=== PATIENT | female | born 1995 | race Caucasian/White ===

== ENCOUNTER → 2019-04-05 | Outpatient (CLI) | payer OTHER, SELFPAY ==
[2019-04-05 13:22] VITALS: BMI 29.7
[2019-04-05 15:18] LABS: T4 Free Direct 0.86 ng/dL (0.76-1.46); Thyroid Stim Hormone (TSH) 3.44 uIU/mL (0.358-3.74)
== END | disposition home or self-care (01) ==
PROVIDERS: Family Provider Pediatrics; PCP Pediatrics; Referring Provider Obstetrics & Gynecology; Visit Provider Obstetrics & Gynecology
DX: E01.0 Iodine-deficiency related diffuse (endemic) goiter (principal)
CPT/HCPCS: 36415; 84439; 84443

== ENCOUNTER → 2019-04-11 | Outpatient (CLI) | payer OTHER, SELFPAY ==
[2019-04-05 13:22] VITALS: BMI 29.7
--- NOTE | 2019-04-11 08:02 | US_ITS ---
STUDY: THYROID ULTRASOUND REASON FOR EXAM: Female, 23 years old. Thyromegaly. TECHNIQUE: Ultrasound evaluation of the thyroid was performed with real-time and static hurley-scale imaging. COMPARISON: None. FINDINGS: RIGHT LOBE: The right lobe of the thyroid gland measures 5.6 x 2.2 x 2.0 cm. There is a heterogeneous echotexture. There are no demonstrated solid, cystic or complex lesions. Normal color flow on Doppler imaging. LEFT LOBE: The left lobe of the thyroid gland measures 5.0 x 2.1 x 1.7 cm. There is a heterogeneous echotexture. There are no demonstrated solid, cystic or complex lesions. Normal vascularity on Doppler imaging. ISTHMUS: The isthmus measures 0.5 cm. The regional lymph nodes are normal. US/Thyroid IMPRESSION: Enlarged heterogenous thyroid without distinct nodule. Electronically Signed: Freddy Soto DO at 16:55 EDT Tel [phone], Service support ,
== END | disposition home or self-care (01) ==
PROVIDERS: Family Provider Pediatrics; PCP Pediatrics; Referring Provider Obstetrics & Gynecology; Visit Provider Obstetrics & Gynecology
DX: E01.0 Iodine-deficiency related diffuse (endemic) goiter (principal)
CPT/HCPCS: 76536

== ENCOUNTER → 2020-06-25 | Outpatient (CLI) | payer OTHER, SELFPAY ==
[2020-06-25 15:40] VITALS: BMI 28.8
[2020-07-01 20:51] LABS: HPV Reflexed? NOT INDICATED
== END | disposition home or self-care (01) ==
LOC: LABSPEC 16:46
PROVIDERS: PCP Pediatrics; Referring Provider Obstetrics & Gynecology; Visit Provider Obstetrics & Gynecology
DX: Z12.4 Encounter for screening for malignant neoplasm of cervix (principal)
CPT/HCPCS: 88175; G0145

== ENCOUNTER → 2021-06-30 11:59 | Outpatient (CLI) | payer BC, SELFPAY ==
[2021-06-30 13:39] LABS: T4 Free Direct 1.03 ng/dL (0.76-1.46); Thyroid Stim Hormone (TSH) 2.28 uIU/mL (0.358-3.74)
[2021-07-04 16:45] LABS: HPV Reflexed? NOT INDICATED
== END ==
PROVIDERS: PCP Family Medicine; Referring Provider Obstetrics & Gynecology; Visit Provider Obstetrics & Gynecology
DX: E04.9 Nontoxic goiter, unspecified (principal); Z13.29 Encounter for screening for other suspected endocrine disorder; Z12.4 Encounter for screening for malignant neoplasm of cervix
CPT/HCPCS: 36415; 84439; 84443; 88175; G0145

== ENCOUNTER → 2023-12-15 | Outpatient (CLI) | payer OTHER, SELFPAY ==
[2023-12-15 17:42] LABS: hCG Titer Quant., Serum 22715 mIU/mL (1-3)
--- OUTSIDE RECORDS SUMMARY | 2023-12-15 20:44 | XMS RPT_ITS | CCD ---
Author Name Unknown Address [address] [place] [address] Organization [facility] Care Team Providers Care Head Of Precision Targeting Name Role Phone Corinna Goetz LPN Unavailable [phone] Corinna Goetz LPN Unavailable [phone] Steve Keita MD Primary Care Provider Steve Keita MD Primary Care Provider STEVE KEITA Primary Care Unavailable ROXANN CHAVIS Attending Unavailable STEVE KEITA Primary Care Unavailable STEVE KEITA Primary Care Unavailable Medications Current Medications Medication Drug Class(es) Dates Sig (Normalized) Sig (Original) amoxicillin 500 mg oral capsule (1 source) Penicillin-class Antibacterial Start: 07-04-2023 End: 07-14-2023 take 1 capsule by mouth twice daily amoxicillin (AMOXIL) 500 mg capsule Take 1 capsule by mouth twice daily for 10 days. 20 capsule 0 07/04/2023 07/14/2023 Active Completed/Discontinued Medications Medication Drug Class(es) Dates Sig (Normalized) Sig (Original) CONTROL (2 sources) Start: 05-27-2017 CONTROL CONTROL Corinna Goetz LPN Ethinyl Estradiol / norgestimate (2 sources) Progestin, Estrogen Start: 10-17-2018 End: 10-30-2022 take 1 tablet by mouth once daily SPRINTEC 0.25-35 mg-mcg per tablet Take 1 tablet by mouth once daily. 84 tablet 0 10/17/2018 10/30/2022 Discontinued (Discontinued by Patient) Problems Problem Classification Problem Date Documented Date Episodic/Chronic Other nutritional; endocrine; and metabolic disorders (3 sources) Obese class I; Translations: [Obesity, unspecified] Onset: 10-30-2022 Chronic Other screening for suspected conditions (not mental disorders or infectious disease) (1 source) Patient encounter status; Translations: [Encounter for screening for malignant neoplasm of cervix] Episodic Other upper respiratory infections (3 sources) Upper respiratory infection; Translations: [Acute upper respiratory infection, unspecified] Episodic Otitis media and related conditions (1 source) Finding of fluid behind tympanic membrane; Translations: [Unspecified nonsuppurative otitis media, bilateral] Episodic Unclassified (2 sources) History and physical examination, pre-employment ; Translations: [Encounter for pre-employment examination] Onset: 05-27-2017 05-27-2017 Results Test Name Value Interpretation Reference Range Facil it Vital Signs Date Time Vital Sign Value Performing Clinician Facility 07-04-2023 14:52-0400 Body temperature 97.11 [degF] Jerry Lopez MIXING TUMBLER OPERATOR.INFORMATION SECURITY SPECIALIST Work Phone: [facility] 07-04-2023 14:52-0400 Body weight 83.01 kg Jerry Lopez MIXING TUMBLER OPERATOR.INFORMATION SECURITY SPECIALIST Work Phone: [facility] 07-04-2023 14:52-0400 Diastolic blood pressure 75 mm[Hg] Jerry Lopez MIXING TUMBLER OPERATOR.INFORMATION SECURITY SPECIALIST Work Phone: [facility] 07-04-2023 14:52-0400 Heart rate 94 /min Jerry Lopez MIXING TUMBLER OPERATOR.INFORMATION SECURITY SPECIALIST Work Phone: [facility] 07-04-2023 14:52-0400 Respiratory rate 18 /min Jerry Lopez MIXING TUMBLER OPERATOR.INFORMATION SECURITY SPECIALIST Work Phone: [facility] 07-04-2023 14:52-0400 SaO2% (BldA) [Mass fraction] 99 % Jerry Lopez MIXING TUMBLER OPERATOR.INFORMATION SECURITY SPECIALIST Work Phone: [facility] 07-04-2023 14:52-0400 Systolic blood pressure 121 mm[Hg] Jerry Lopez MIXING TUMBLER OPERATOR.INFORMATION SECURITY SPECIALIST Work Phone: [facility] 10-30-2022 14:56-0500 Body height 162.6 cm Roxann Ericka MIXING TUMBLER OPERATOR.INFORMATION SECURITY SPECIALIST Work Phone: [facility] 10-30-2022 14:56-0500 Body weight 79.38 kg Roxann Chavis MIXING TUMBLER OPERATOR.INFORMATION SECURITY SPECIALIST Work Phone: [facility] 10-30-2022 14:56-0500 Diastolic blood pressure 69 mm[Hg] Roxann Ericka MIXING TUMBLER OPERATOR.INFORMATION SECURITY SPECIALIST Work Phone: [facility] 10-30-2022 14:56-0500 Heart rate 78 /min Roxann Syeth MIXING TUMBLER OPERATOR.INFORMATION SECURITY SPECIALIST Work Phone: [facility] 10-30-2022 14:56-0500 Systolic blood pressure 107 mm[Hg] Roxann Ericka MIXING TUMBLER OPERATOR.INFORMATION SECURITY SPECIALIST Work Phone: [facility] 07-07-2022 16:56-0400 Body temperature 97.7 [degF] Deisy Dan MIXING TUMBLER OPERATOR.INFORMATION SECURITY SPECIALIST Work Phone: [facility] 07-07-2022 16:56-0400 Body weight 80.47 kg Deisy Dan MIXING TUMBLER OPERATOR.INFORMATION SECURITY SPECIALIST Work Phone: [facility] 07-07-2022 16:56-0400 Diastolic blood pressure 54 mm[Hg] Deisy Dan MIXING TUMBLER OPERATOR.INFORMATION SECURITY SPECIALIST Work Phone: [facility] 07-07-2022 16:56-0400 Heart rate 75 /min Deisy Dan MIXING TUMBLER OPERATOR.INFORMATION SECURITY SPECIALIST Work Phone: [facility] 07-07-2022 16:56-0400 Respiratory rate 20 /min Deisy Dan MIXING TUMBLER OPERATOR.INFORMATION SECURITY SPECIALIST Work Phone: [facility] 07-07-2022 16:56-0400 SaO2% (BldA) [Mass fraction] 100 % Deisy Dan MIXING TUMBLER OPERATOR.INFORMATION SECURITY SPECIALIST Work Phone: [facility] 07-07-2022 16:56-0400 Systolic blood pressure 121 mm[Hg] Deisy Dan MIXING TUMBLER OPERATOR.INFORMATION SECURITY SPECIALIST Work Phone: [facility] 05-27-2017 13:27-0400 BMI (Body Mass Index) 26.43 kg/m2 Corinna Goetz LPN [facility] Work Phone: 05-27-2017 13:27-0400 Body Temperature 98.1 [degF] Corinna Goetz LPN [facility] Work Phone: 05-27-2017 13:27-0400 BP Diastolic 74 mm[Hg] Corinna Goetz LPN [facility] Work Phone: 05-27-2017 13:27-0400 BP Systolic 102 mm[Hg] Corinna Goetz LPN [facility] Work Phone: 05-27-2017 13:27-0400 Height 162.56 cm Corinna Goetz LPN [facility] Work Phone: 05-27-2017 13:27-0400 Pulse (Heart Rate) 81 /min Corinna Goetz LPN [facility] Work Phone: 05-27-2017 13:27-0400 Respiratory Rate 14 /min Corinna Goetz LPN [facility] Work Phone: 05-27-2017 13:27-0400 Weight 69.85 kg Corinna Goetz LPN [facility] Work Phone: Encounters Encounter Date Encounter Type Care Provider Facility Start: 07-04-2023 End: 07-04-2023 ambulatory [facility] Facility:[facility] Start: 07-04-2023 End: 07-04-2023 Office outpatient visit 25 minutes Jerry Lopez APRN.CNP Work Phone: [facility] Procedures Date Procedure Procedure Detail Performing Clinician Start: 07-04-2023 STREP A MOLECULAR (POC) Lupe West PA-C Work Phone: Start: 05-27-2017 End: 05-27-2017 Pre-employment PE Ricardo RYAN Work Phone: Plan of Treatment Date Care Activity Detail Author Start: 10-30-2025 Pap Testing Pap Testing [facility] Start: 06-11-2023 Influenza vaccination Influenza Vaccine (#1) [facility] Start: 10-11-2022 DEPRESSION ASSESSMENT DEPRESSION ASSESSMENT [facility] Start: 06-11-2022 Influenza vaccination INFLUENZA (#1) [facility] Start: 10-11-2021 DEPRESSION ASSESSMENT DEPRESSION ASSESSMENT [facility] Start: 11-26-2020 PAP TESTING PAP TESTING [facility] Start: 04-23-2018 Urine microalbumin profile [facility] Start: 05-27-2017 End: 05-27-2017 Appointment Appointment [facility] Work Phone: Start: 2014 HEPATITIS C SCREENING HEPATITIS C SCREENING [facility] Start: 2014 HIV SCREENING HIV SCREENING [facility] Start: 03-15-2014 HPV VACCINE (3 - 3-dose series) HPV VACCINE (3 - 3-dose series) [facility] Start: 2010 PEDS TO ADULT TRANSITION ANNUAL ASSESSMENT PEDS TO ADULT TRANSITION ANNUAL ASSESSMENT [facility] Start: 2008 PEDS TO ADULT TRANSITION INITIAL DISCUSSION PEDS TO ADULT TRANSITION INITIAL DISCUSSION [facility] Start: 1996 COVID-19 VACCINE (#1) COVID-19 VACCINE (#1) [facility] PAP FLUID CERVICAL SCREENING PAP FLUID CERVICAL SCREENING Lab Routine Encounter for gynecological examination (general) (routine) without abnormal findings Ordered: 10/30/2022 [facility] Work Phone: Immunizations Immunization Date Immunization Notes Care Provider Sivan rodriguez 11-15-2013 human papilloma viru s vaccine, quadrivalent Deisy Dan APRN.INFORMATION SECURITY SPECIALIST Work Phone: [facility] Work Phone: 11-14-2012 human papilloma viru s vaccine, quadrivalent Deisy Dan MIXING TUMBLER OPERATOR.INFORMATION SECURITY SPECIALIST Work Phone: [facility] 11-14-2012 Meningococcal, MCV4, unspecified conjugate formulation(groups A, C, Y and W-135) Deisy Dan APRN.INFORMATION SECURITY SPECIALIST Work Phone: [facility] 04-15-2009 Meningococcal, MCV4, unspecified conjugate formulation(groups A, C, Y and W-135) Deisy Dan MIXING TUMBLER OPERATOR.INFORMATION SECURITY SPECIALIST Work Phone: [facility] Work Phone: 04-23-2008 tetanus toxoid, reduced diphtheria toxoid, and acellular pertussis vaccine, adsorbed Deisy Dan APRN.[facility] Work Phone: [facility] Work Phone: 05-20-2001 diphtheria, tetanus toxoids and acellular pertussis vaccine Deisy Dan APRN.INFORMATION SECURITY SPECIALIST Work Phone: [facility] Work Phone: 05-20-2001 measles, mumps and rubella virus vaccine Deisy Dan APRN.[facility] Work Phone: [facility] Work Phone: 05-20-2001 poliovirus vaccine, inactivated Deisy Dan APRN.[facility] Work Phone: [facility] Work Phone: 07-11-1999 Chicken Pox (disease) Jesusita Dan APRN.[facility] Work Phone: [facility] Work Phone: 07-28-1997 DTP-Haemophilus influenzae type b conjugate vaccine Jerry Lopez APRN.[facility] Work Phone: [facility] Work Phone: 07-28-1997 Tetramune Deisy Dan APRN.[facility] Work Phone: [facility] Work Phone: 05-17-1997 measles, mumps and rubella virus vaccine Deisy Dan APRN.[facility] Work Phone: [facility] Work Phone: 02-07-1997 hepatitis B vaccine, pediatric or pediatric/adolescent dosage Deisy Dan APRN.[facility] Work Phone: [facility] Work Phone: 1996 DTP-Haemophilus influenzae type b conjugate vaccine Jerry Lopez APRN.INFORMATION SECURITY SPECIALIST Work Phone: [facility] Work Phone: 1996 Tetramune Deisy Dan APRN.[facility] Work Phone: [facility] Work Phone: 1996 trivalent poliovirus vaccine, live, oral Deisy Dan MIXING TUMBLER OPERATOR.INFORMATION SECURITY SPECIALIST Work Phone: [facility] Work Phone: 1996 DTP-Haemophilus influenzae type b conjugate vaccine Jerry Lopez MIXING TUMBLER OPERATOR.INFORMATION SECURITY SPECIALIST Work Phone: [facility] Work Phone: 1996 Tetramune Deisy Dan MIXING TUMBLER OPERATOR.INFORMATION SECURITY SPECIALIST Work Phone: [facility] Work Phone: 1996 trivalent poliovirus vaccine, live, oral Deisy Dan MIXING TUMBLER OPERATOR.[facility] Work Phone: [facility] Work Phone: 1996 DTP-Haemophilus influenzae type b conjugate vaccine Jerry Lopez MIXING TUMBLER OPERATOR.[facility] Work Phone: [facility] Work Phone: 1996 hepatitis B vaccine, pediatric or pediatric/adolescent dosage Deisy Dan MIXING TUMBLER OPERATOR.INFORMATION SECURITY SPECIALIST Work Phone: [facility] Work Phone: 1996 Tetramune Deisy Dan MIXING TUMBLER OPERATOR.INFORMATION SECURITY SPECIALIST Work Phone: [facility] Work Phone: 1996 trivalent poliovirus vaccine, live, oral Deisy Dan MIXING TUMBLER OPERATOR.[facility] Work Phone: [facility] Work Phone: 1996 hepatitis B vaccine, pediatric or pediatric/adolescent dosage Deisy Dan MIXING TUMBLER OPERATOR.[facility] Work Phone: [facility] Work Phone: Payers Date Payer Category Payer Unknown [id number] 2022 Unknown [id number] 2020 Unknown [id number] 2020 Unknown [id number] Social History Date Type Detail Facility Start: 01-22-2014 Tobacco smoking stat us NHIS Never smoked tobacco [facility] Work Phone: Start: 01-22-2014 Tobacco use and exposure Smokeless tobacco non-user [facility] Work Phone: Start: 07-07-2022 End: 07-04-2023 Alcohol intake Current non-drinker of alcohol (finding) [facility] Start: 1995 Sex Assigned At Female C [facility] Start: 06-27-2022 End: 07-07-2022 Exposure to SARS-CoV-2 (event) Not sure [facility] Start: 10-30-2022 End: 07-04-2023 History of Social function [facility] Start: 10-30-2022 End: 07-04-2023 Tobacco use panel [facility] National Score (1-10 0), lower number is lower risk 53 [facility] Start: 09-26-2021 Gender identity Identifies as female gender (finding) [facility] Start: 09-26-2021 Sexual orientation Heterosexual (fin melissa) [facility] Clinical Notes 01-22-2014 to 07-04-2023 Jerry Lopez APRN.INFORMATION SECURITY SPECIALIST - 07/04/2023 2:59 PM EDTPatient InstructionsRoxann Chavis APRN.INFORMATION SECURITY SPECIALIST - 10/30/2022 2:44 PM ESTPatient InstructionsDeisy Dan APRN.INFORMATION SECURITY SPECIALIST - 07/07/2022 4:57 PM EDT Note Date & Type Note Facility 07-04-2023 Note HNO ID: [id number] Author: Jerry Lopez APRN.INFORMATION SECURITY SPECIALIST Service: ? Author Type: Nurse Practitioner Type: Progress Notes Filed: 07/04/2023 3:25 PM Note Text: Subjective HPI Nontoxic-appearing female presents urgent care chief complaint pharyngitis fever chills headache. Duration of symptom 1 day. Associated symptoms listed above. No known sick contacts. 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 No difficulty swallowing handling secretions decreased range of motion of neck. Denies any fever body aches chills productive cough chest pain shortness of breath pleuritic pain hemoptysis nausea vomiting abdominal pain change in bowel or bladder habits. Past medical history prescription medication use and allergies reviewed. .Patient presents with: Sore Throat: BARRERA, fever, chills x1 day PAST MEDICAL HISTORY Diagnosis Date Syncope Resolved PAST SURGICAL HISTORY Procedure Laterality Date ARTHROSCOPY KNEE DIAGNOSTIC W/WO SYNOVIAL BX SPX Arthroscopy, knee, ACL x2 Repair, miniscus / 2022 ALLERGIES Patient has no known allergies. MEDICATIONS No prescriptions on file. FAMILY HISTORY Problem Relation Age of Onset Lipids Mother High Cholesterol Breast Cancer Maternal Grandmother Coronary Artery Disease Maternal Grandfather By-pass other (High Cholesterol) Other Maternal side Hypertension Other Maternal AND Paternal sides Ovarian cancer No Family History Uterine Cancer No Family History Colon Cancer No Family History Social History Tobacco Use Smoking status: Never Smokeless tobacco: Never Vaping Use Vaping Use: current everyday user Substances: Nicotine Devices: Refillable tank Substance Use Topics Alcohol use: No Drug use: No BP 121/75 Pulse 94 Temp 36.2 ?C (97.1 ?F) Resp 18 Wt 83 kg (183 lb) LMP 10/01/2022 SpO2 99% BMI 31.41 kg/m? Review of Systems Constitutional: Positive for chills, fever and malaise/fatigue. HENT: Positive for sore throat. Negative for congestion, ear discharge, ear pain and sinus pain. Eyes: Negative for blurred vision, pain, discharge and redness. Respiratory: Negative for cough, hemoptysis, sputum production, shortness of breath, wheezing and stridor. Cardiovascular: Negative for chest pain. Gastrointestinal: Negative for abdominal pain, diarrhea, nausea and vomiting. Musculoskeletal: Positive for myalgias. Skin: Negative for itching and rash. Neurological: Positive for headaches. Negative for dizziness. Objective Physical Exam Constitutional: General: She is not in acute distress. Appearance: She is not diaphoretic. HENT: Head: Normocephalic. Jaw: No trismus, tenderness, swelling or pain on movement. Mouth/Throat: Lips: Grawn. Mouth: Mucous membranes are moist. Pharynx: Oropharynx is clear. Uvula midline. Posterior oropharyngeal erythema present. No pharyngeal swelling, oropharyngeal exudate or uvula swelling. Tonsils: No tonsillar exudate or tonsillar abscesses. 1+ on the right. 1+ on the left. Eyes: Conjunctiva/sclera: Conjunctivae normal. Pupils: Pupils are equal, round, and reactive to light. Cardiovascular: Rate and Rhythm: Normal rate and regular rhythm. Heart sounds: Normal heart sounds. Pulmonary: Effort: Pulmonary effort is normal. No tachypnea, accessory muscle usage or respiratory distress. Breath sounds: Normal breath sounds. No stridor. No wheezing, rhonchi or rales. Abdominal: General: There is no distension. Palpations: Abdomen is soft. Tenderness: There is no abdominal tenderness. There is no guarding or rebound. Musculoskeletal: Cervical back: Normal range of motion and neck supple. No edema, erythema, rigidity or tenderness. No pain with movement. Normal range of motion. Lymphadenopathy: Cervical: No cervical adenopathy. Skin: General: Skin is warm and dry. Neurological: Mental Status: She is alert and oriented to person, place, and time. ASSESSMENT/PLAN: 1. Sore throat - ICD9: 462, ICD10: J02.9 (primary diagnosis) - STREP A MOLECULAR (POC) 2. Strep throat - ICD9: 034.0, ICD10: J02.0 Strep test positive. Placed on amoxicillin. Patient was educated on supportive therapies. Patient will follow up with primary care provider as needed. Patient was instructed to immediately proceed to emergency room for any new, worsening, or symptoms lasting longer than anticipated. The patient's clinical presentation is otherwise unremarkable at this time. Based on exam and clinical finding, the patient is stable for discharge. Plan of care was discussed with patient. Patient verbalizes understanding and agrees to plan of care. This note was generated using [employer] software. It may contain errors in wording, punctuation, or spelling. Jerry Lopez APRN.[facility] 07-04-2023 History of Presen t illness Narrative Subjective HPI Nontoxic-appearing female presents urgent care chief complaint pharyngitis fever chills headache. Duration of symptom 1 day. Associated symptoms listed above. No known sick contacts. 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 No difficulty swallowing handling secretions decreased range of motion of neck. Denies any fever body aches chills productive cough chest pain shortness of breath pleuritic pain hemoptysis nausea vomiting abdominal pain change in bowel or bladder habits. Past medical history prescription medication use and allergies reviewed. .Patient presents with: Sore Throat: BARRERA, fever, chills x1 day PAST MEDICAL HISTORY Diagnosis Date Syncope Resolved PAST SURGICAL HISTORY Procedure Laterality Date ARTHROSCOPY KNEE DIAGNOSTIC W/WO SYNOVIAL BX SPX Arthroscopy, knee, ACL x2 Repair, miniscus [id number]/ 2022 ALLERGIES Patient has no known allergies. MEDICATIONS No prescriptions on file. FAMILY HISTORY Problem Relation Age of Onset Lipids Mother High Cholesterol Breast Cancer Maternal Grandmother Coronary Artery Disease Maternal Grandfather By-pass other (High Cholesterol) Other Maternal side Hypertension Other Maternal & Paternal sides Ovarian cancer No Family History Uterine Cancer No Family History Colon Cancer No Family History Social History Tobacco Use Smoking status: Never Smokeless tobacco: Never Vaping Use Vaping Use: current everyday user Substances: Nicotine Devices: RefWanxue Educationble tank Substance Use Topics Alcohol use: No Drug use: No BP 121/75 Pulse 94 Temp 36.2 C (97.1 F) Resp 18 Wt 83 kg (183 lb) LMP 10/01/2022 SpO2 99% BMI 31.41 kg/m Review of Systems Constitutional: Positive for chills, fever and malaise/fatigue. HENT: Positive for sore throat. Negative for congestion, ear discharge, ear pain and sinus pain. Eyes: Negative for blurred vision, pain, discharge and redness. Respiratory: Negative for cough, hemoptysis, sputum production, shortness of breath, wheezing and stridor. Cardiovascular: Negative for chest pain. Gastrointestinal: Negative for abdominal pain, diarrhea, nausea and vomiting. Musculoskeletal: Positive for myalgias. Skin: Negative for itching and rash. Neurological: Positive for headaches. Negative for dizziness. Objective Physical Exam Constitutional: General: She is not in acute distress. Appearance: She is not diaphoretic. HENT: Head: Normocephalic. Jaw: No trismus, tenderness, swelling or pain on movement. Mouth/Throat: Lips: Grawn. Mouth: Mucous membranes are moist. Pharynx: Oropharynx is clear. Uvula midline. Posterior oropharyngeal erythema present. No pharyngeal swelling, oropharyngeal exudate or uvula swelling. Tonsils: No tonsillar exudate or tonsillar abscesses. 1+ on the right. 1+ on the left. Eyes: Conjunctiva/sclera: Conjunctivae normal. Pupils: Pupils are equal, round, and reactive to light. Cardiovascular: Rate and Rhythm: Normal rate and regular rhythm. Heart sounds: Normal heart sounds. Pulmonary: Effort: Pulmonary effort is normal. No tachypnea, accessory muscle usage or respiratory distress. Breath sounds: Normal breath sounds. No stridor. No wheezing, rhonchi or rales. Abdominal: General: There is no distension. Palpations: Abdomen is soft. Tenderness: There is no abdominal tenderness. There is no guarding or rebound. Musculoskeletal: Cervical back: Normal range of motion and neck supple. No edema, erythema, rigidity or tenderness. No pain with movement. Normal range of motion. Lymphadenopathy: Cervical: No cervical adenopathy. Skin: General: Skin is warm and dry. Neurological: Mental Status: She is alert and oriented to person, place, and time. ASSESSMENT/PLAN: 1. Sore throat - ICD9: 462, ICD10: J02.9 (primary diagnosis) - STREP A MOLECULAR (POC) 2. Strep throat - ICD9: 034.0, ICD10: J02.0 Strep test positive. Placed on amoxicillin. Patient was educated on supportive therapies. Patient will follow up with primary care provider as needed. Patient was instructed to immediately proceed to emergency room for any new, worsening, or symptoms lasting longer than anticipated. The patient's clinical presentation is otherwise unremarkable at this time. Based on exam and clinical finding, the patient is stable for discharge. Plan of care was discussed with patient. Patient verbalizes understanding and agrees to plan of care. This note was generated using [employer] software. It may contain errors in wording, punctuation, or spelling. Jerry Lopez APRN.RUFINA documented in this encounter [facility] 10-30-2022 Note HNO ID: [id number] Author: Roxann Chavis APRN.RUFINA Service: ? Author Type: Nurse Practitioner Type: Progress Notes Filed: 10/30/2022 4:38 PM Note Text: Brenda is a 27 year old who presents with the following complaints: [facility], establishing care for an annual gynecologic exam . Last GEOSPATIAL EXTRACTOR ANALYSIS visit 11/26/2017 Irregular bleeding for one month last month with tender breasts. tests negative. 3. Has questions on conception, getting this summer and would like to start trying right away Menses: cycles every 29 days and 5 days of flow. Contraception: none, withdrawl HPV vaccine: 2 of 3 never finished, info provided Last Pap: 12/07/2017 normal HPV: N/A History of abnormal pap: Yes, two years ago repeat negative Last mammogram: Never start at age 41 Sexually active: Yes History of STDS: chlamydia x1 teens Patient concerns for STD exposure: No. Time with current partner: 2 years History of fibroids: No History of ovarian cyst: No History of endometriosis: No History of infertility: No History of PCOS: No Pain with intercourse: No Postcoital bleeding: No OB History T0 L0 SAB0 IAB0 Ectopic0 Multiple0 Live Births0 Shot Bagger History LMP: 10/01/2022, Having periods Age at Menarche: 13 Age at First : Age at Menopause: Shot Bagger History Comments: Sexual Activity: Yes; Male; Engaged,Same partner since 2020 Contraception: No contraception data on record PAST MEDICAL HISTORY Diagnosis Date PMH - PAST MEDICAL HISTORY OF Color Vision - Normal Syncope Resolved PAST SURGICAL HISTORY Procedure Laterality Date ARTHROSCOPY KNEE DIAGNOSTIC W/WO SYNOVIAL BX SPX Arthroscopy, knee, ACL Repair FAMILY HISTORY Problem Relation Age of Onset Lipids Mother High Cholesterol Breast Cancer Maternal Grandmother Coronary Artery Disease Maternal Grandfather By-pass other (High Cholesterol) Other Maternal side Hypertension Other Maternal AND Paternal sides Ovarian cancer No Family History Uterine Cancer No Family History Colon Cancer No Family History SOCIAL HISTORY Social History Tobacco Use Smoking status: Never Smokeless tobacco: Never Vaping Use Vaping Use: current everyday user Substances: Nicotine Devices: RefWanxue Educationble tank Substance Use Topics Alcohol use: No Drug use: No REVIEW OF SYSTEMS Abdomen: No abdominal pain, nausea, vomiting, diarrhea, or constipation. No bloating, early satiety, indigestion, or increased flatulence. Bladder: No dysuria, gross hematuria, urinary frequency, urinary urgency, or incontinence. Breast: No breast lumps, nipple d/c, overlying skin changes, redness or skin retraction. Allergies and current medication updated:Yes EXAM: BP 107/69 Pulse 78 Ht 5' 4 (1.63m) Wt 175 lb (79.4kg) LMP 10/01/2022 BMI 30.02 kg/(m2). GENERAL: pleasant, female in no apparent distress HEENT: Normocephalic, atraumatic, mucus membranes moist, and no lesions NECK: Supple, full range of motion, and no adenopathy DERMATOLOGY: Normal, without lesions, non-icteric, and non-hirsute BREAST: soft, non-tender, symmetric, no dominant mass, normal nipple-areolar complex, no lymphadenopathy, and no nipple discharge CHEST: Normal inspiratory effort ABDOMEN: soft, non-tender, and no masses PELVIC: external genitalia normal, normal Bartholin's glands, urethra, [place]'s glands, no vulvar lesions, no cervical lesions, good vaginal support, physiologic discharge present, normal appearing perineal body and perianal region BIMANUAL: uterus normal size, shape and consistency, no adnexal masses, and non-tender RECTOVAGINAL: deferred. NEURO: alert and oriented x3,exam grossly non-focal EXTREMITIES: normal ASSESSMENT/PLAN: 1) Health maintenance: -Pap done with reflex HPV, if normal, next pap 2025. -Mammogram starting age 40. -Discussed BSEs -Nutrition, exercise and routine health maintenance exams reviewed. -Smoking cessation: Benefits of smoking cessation reviewed. -HPV vaccine: 2 of 3 completed. Discussed. Info provided. 2) Contraception: withdrawal. Aware of risk. Contraceptive options reviewed and declined. 3) Preconception- discussed cycle tracking, encouraged to start a PNV, vaping cessation and to call the office after first missed period and + HPT 4) Irregular period -- advised cycle highly susceptible to numerous outside influences such as: stress, weight change, vomiting, illness, athletic competition/strenuous exercise, substance use, medications, nutritional deficiencies or lack of sleep etc. Begin menstrual journal, if after 3 months, cycle is still irregular, should schedule OV to evaluate/discuss further. 5) STD screening: Declined STD check. 6) Follow up one year or sooner as needed Joi Gottlieb APRN. INFORMATION SECURITY SPECIALIST Attending Note I have personally performed a face to face assessment of the patient and have reviewed the ELDER note. I performed a substantive (more content not included)... [facility] 10-30-2022 Instructions Roxann Chavis APRN.CNP - 10/30/2022 3:05 PM EST What is HPV? Human papilloma virus or HPV is a very common virus. There are about 40 types of HPV that can infect the genitals or sex organs of men and women. HPV is so common that most people get it at some time in their lives. HPV usually causes no symptoms and most people do not know that they have it. Certain types of HPV can cause genital warts. Some types of HPV can cause changes on a woman's cervix that can lead to cervical cancer over time. Most of the time, the body's immune systems fights off HPV naturally within two years-before HPV causes any health problems. How is HPV Prevented? The only way to avoid HPV totally would be to never be sexually active.Limiting sexual partners and using condoms each time you have sex is helpful.In addition, there is a vaccine that protects against some of the HPV strains that cause genital warts or cervical cancer. This vaccine is approved for women ages 9-26.It does not prevent against all types of HPV and does not prevent you from getting other sexually transmitted diseases. How could I get HPV? HPV is passed on through genital (skin to skin) contact, most often during vaginal or anal sex. HPV may also be passed on during oral sex. All women who have ever been sexually active are at risk of suzanne HPV. HPV is NOT the same as HIV (the aids virus) or herpes. All viruses can be passed on during sex. But they do not cause the same symptoms or health problems. Most people never know that they have HPV or that they are passing it to their partner. It may not be possible to know who gave you HPV or when you got it. HPV is so common that most people get it soon after they start having sex. It may only be found years later. Can HPV Be Treated? There is no cure for HPV. Most of the time your body fights the virus on its own. If the infection causes genital warts or cervical cancer there are treatments for these problems, but not for HPV itself. Even after these conditions are treated, HPV can stay in your body and be passed on to sexual partners. How do I talk to my partner about HPV? HPV testing is not recommended for men, nor is it recommended for finding HPV on the genitals or in the mouth or throat. The body usually fights off the HPV naturally before it causes health problems. Partners who have been together for a while tend to share HPV. This means that your partner likely has HPV already, even though they have no signs or symptoms. Having HPV does NOT mean that you or your partner is having sex outside the relationship. There is no sure way to know when you got HPV or who gave it to you. A person can have HPV for many years before it is found. ACOG Screening Guidelines The following health screening schedule is recommended by the [employer] (ACOG). Some of these tests may be ordered or performed by your primary care doctor. Pap test screening The pap test looks at cells on the cervix (the opening from the vagina to the uterus) to look for cancer or pre-cancerous changes. These changes are caused by the human papillomavirus (HPV). Studies estimate that half of all women will test positive for this virus within 3 years of starting sexual activity. For young women with a normal immune system, 90% of HPV infections will resolve within 2 years. There is a vaccine available against some forms of HPV. This is recommended for girls and women age 9-45. For ages 9-14, two injections are given at 0 and 6 months. For ages 15-45, three injections are given at 0,2 and 6 months. Because this vaccine does not protect against all HPV types which can cause cervical cancer, women who received the vaccine still need pap tests. Pap smear screening should be started at age 21. The pap test should be done every 3 years from age 21-29. From age 30-65, pap smears can be done every 5 years if HPV test is negative or every 3 years if HPV testing is not done. For women over the age of 65, ACOG recommends against screening women who have had adequate prior screening and are not otherwise at high risk for cervical cancer. Women who have had a hysterectomy also do not need routine pap smear screening unless the pap smear was done for a cervical cancer or moderate to severe dysplasia. Breast cancer screening Mammogram should be performed every 1-2 years starting at age 40 and every year starting at age 50. Screening may be started earlier depending on family history. Cholesterol screening Lipid panel (cholesterol test) should be checked every 5 years starting at age 45. Diabetes screening Fasting glucose (blood sugar) test should be performed every 3 years starting at age 45. Colorectal cancer screening Starting at age 45, women should have a screening colonoscopy at least every 10 years. Screening may be started earlier depending on family history. Thyroid screening Thyroid function test (TSH) should be checked every 5 years starting at age 50. Bone mineral density screening All postmenopausal women age 65 and over and postmenopausal women with risk factors for osteoporosis should have a bone mineral density test performed. Risk factors include race, family history of osteoporosis, personal history of fractures, poor nutrition, smoking, heavy alcohol use, early menopause, low calcium intake and low body weight. Certain medical conditions and long-term use of some medications may also increase risk. documented in this encounter [facility] 10-30-2022 History of Presen t illness Narrative Brenda is a 27 year old who presents with the following complaints: [facility], establishing care for an annual gynecologic exam . Last [facility]PAT[facility] ANALYS[facility] visit 11/26/2017 Irregular bleeding for one month last month with tender breasts. tests negative. 3. Has questions on conception, getting this summer and would like to start trying right away Menses: cycles every 29 days and 5 days of flow. Contraception: none, withdrawl HPV vaccine: 2 of 3 never finished, info provided Last Pap: 12/07/2017 normal HPV: N/A History of abnormal pap: Yes, two years ago repeat negative Last mammogram: Never start at age 40 Sexually active: Yes History of STDS: chlamydia x1 teens Patient concerns for STD exposure: No. Time with current partner: 2 years History of fibroids: No History of ovarian cyst: No History of endometriosis: No History of infertility: No History of PCOS: No Pain with intercourse: No Postcoital bleeding: No OB History T0 L0 SAB0 IAB0 Ectopic0 Multiple0 Live Births0 Shot Bagger History LMP: 10/01/2022, Having periods Age at Menarche: 13 Age at First : Age at Menopause: Shot Bagger History Comments: Sexual Activity: Yes; Male; Engaged,Same partner since 2020 Contraception: No contraception data on record PAST MEDICAL HISTORY Diagnosis Date PMH - PAST MEDICAL HISTORY OF Color Vision - Normal Syncope Resolved PAST SURGICAL HISTORY Procedure Laterality Date ARTHROSCOPY KNEE DIAGNOSTIC W/WO SYNOVIAL BX SPX Arthroscopy, knee, ACL Repair FAMILY HISTORY Problem Relation Age of Onset Lipids Mother High Cholesterol Breast Cancer Maternal Grandmother Coronary Artery Disease Maternal Grandfather By-pass other (High Cholesterol) Other Maternal side Hypertension Other Maternal & Paternal sides Ovarian cancer No Family History Uterine Cancer No Family History Colon Cancer No Family History SOCIAL HISTORY Social History Tobacco Use Smoking status: Never Smokeless tobacco: Never Vaping Use Vaping Use: current everyday user Substances: Nicotine Devices: Mobly tank Substance Use Topics Alcohol use: No Drug use: No REVIEW OF SYSTEMS Abdomen: No abdominal pain, nausea, vomiting, diarrhea, or constipation. No bloating, early satiety, indigestion, or increased flatulence. Bladder: No dysuria, gross hematuria, urinary frequency, urinary urgency, or incontinence. Breast: No breast lumps, nipple d/c, overlying skin changes, redness or skin retraction. Allergies and current medication updated:Yes EXAM: BP 107/69 Pulse 78 Ht 5' 4 (1.63m) Wt 175 lb (79.4kg) LMP 10/01/2022 BMI 30.02 kg/(m^2). GENERAL: pleasant, female in no apparent distress HEENT: Normocephalic, atraumatic, mucus membranes moist, and no lesions NECK: Supple, full range of motion, and no adenopathy DERMATOLOGY: Normal, without lesions, non-icteric, and non-hirsute BREAST: soft, non-tender, symmetric, no dominant mass, normal nipple-areolar complex, no lymphadenopathy, and no nipple discharge CHEST: Normal inspiratory effort ABDOMEN: soft, non-tender, and no masses PELVIC: external genitalia normal, normal Bartholin's glands, urethra, [place]'s glands, no vulvar lesions, no cervical lesions, good vaginal support, physiologic discharge present, normal appearing perineal body and perianal region BIMANUAL: uterus normal size, shape and consistency, no adnexal masses, and non-tender RECTOVAGINAL: deferred. NEURO: alert and oriented x3,exam grossly non-focal EXTREMITIES: normal ASSESSMENT/PLAN: 1) Health maintenance: -Pap done with reflex HPV, if normal, next pap 2025. -Mammogram starting age 40. -Discussed BSEs -Nutrition, exercise and routine health maintenance exams reviewed. -Smoking cessation: Benefits of smoking cessation reviewed. -HPV vaccine: 2 of 3 completed. Discussed. Info provided. 2) Contraception: withdrawal. Aware of risk. Contraceptive options reviewed and declined. 3) Preconception- discussed cycle tracking, encouraged to start a PNV, vaping cessation and to call the office after first missed period and + HPT 4) Irregular period -- advised cycle highly susceptible to numerous outside influences such as: stress, weight change, vomiting, illness, athletic competition/strenuous exercise, substance use, medications, nutritional deficiencies or lack of sleep etc. Begin menstrual journal, if after 3 months, cycle is still irregular, should schedule OV to evaluate/discuss further. 5) STD screening: Declined STD check. 6) Follow up one year or sooner as needed Joi Gottlieb APRN. RUFINA Attending Note I have personally performed a face to face assessment of the patient and have reviewed the ELDER note. I performed a substantive portion of the visit including all aspects of the following. My encarnacion findings include: same Other additions or changes: As edited Signature: Roxann Chavis APRN.CNP Date: 10/30/2022 Time: 3:51 PM documented in this encounter [facility] 07-07-2022 Note HNO ID: [id number] Author: Deisy Dan APRN.CNP Service: ? Author Type: Nurse Practitioner Type: Progress Notes Filed: 07/07/2022 5:08 PM Note Text: Brenda Curran 27 year old female presents to the [facility] with concerns of right ear pain. [facility] had real bad infection last year in the same ear. She did have URI recently. 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 this has been ongoing for 2 days. treatments tried otc cold medications with some relief. covid/flu exposure- none known- not concerned and declines testing Ear Infection (Symptom pain in right ear ) BP 121/54 Pulse 75 Temp 36.5 ?C (97.7 ?F) (Temporal) Resp 20 Wt 80.5 kg (177 lb 6.4 oz) LMP 07/07/2022 SpO2 100% BMI 30.45 kg/m? Review of Systems Constitutional: Negative. HENT: Positive for ear pain and rhinorrhea. Negative for congestion. As noted in HPI Respiratory: Positive for cough. Cardiovascular: Negative. Social History Tobacco Use Smoking status: Never Smokeless tobacco: Never Substance Use Topics Alcohol use: No Drug use: No PAST MEDICAL HISTORY Diagnosis Date PMH - PAST MEDICAL HISTORY OF Color Vision - Normal Syncope Resolved Current Outpatient Medications Medication Sig Dispense Refill SPRINTEC 0.25-35 mg-mcg per tablet Take 1 tablet by mouth once daily. 84 tablet 0 No current facility-administered medications for this visit. Physical Exam Vitals reviewed. Constitutional: General: She is not in acute distress. Appearance: Normal appearance. She is not ill-appearing. HENT: Right Ear: A middle ear effusion is present. Tympanic membrane is not erythematous. Left Ear: A middle ear effusion is present. Tympanic membrane is not erythematous. Nose: Congestion present. No mucosal edema or rhinorrhea. Mouth/Throat: Mouth: Mucous membranes are moist. Pharynx: Oropharynx is clear. No oropharyngeal exudate or posterior oropharyngeal erythema. Cardiovascular: Rate and Rhythm: Normal rate and regular rhythm. Pulmonary: Effort: Pulmonary effort is normal. No respiratory distress. Breath sounds: Normal breath sounds. No wheezing or rales. Lymphadenopathy: Cervical: No cervical adenopathy. Skin: General: Skin is warm and dry. Neurological: Mental Status: She is alert. ASSESSMENT/PLAN: 1. Fluid level behind tympanic membrane of both ears - ICD9: 381.4, ICD10: H65.93 (primary diagnosis) - Supportive care with plenty of fluids, rest, and analgesia prn. - FLUTICASONE PROPIONATE 50 MCG/ACTUATION NASAL SPRAY,SUSPENSION 2. Upper respiratory tract infection, unspecified type - ICD9: 465.9, ICD10: J06.9 - Discussed viral etiology and rationale for treatment. - Symptomatic treatment with prn analgesia - Supportive care with fluids and rest Deisy Dan APRN.INFORMATION SECURITY SPECIALIST - Drink lots of fluids - Make sure you are eating well - Get plenty of rest - - ibuprofen every 8 hours as needed for discomfort - acetaminophen every 4-6 hours as needed for fever and discomfort. - may alternate ibuprofen and acetaminophen For nasal congestion try: -Vaporizers, Neti Pot, humidifiers, hot showers, and hot fluids help open respiratory and sinus passages. -Nasal Marble may offer relief of nasal and head congestion 2-3 times per day as needed. - Sudafed is a safe and effective decongestant for people who do not have high blood pressure. Do not take Sudafed if you have ever been told that you have high blood pressure or hypertension. For Sore Throat try: - Salt water gargles every 2-3 hours as needed for discomfort - Chloraceptic spray or throat lozenges (Cepacol) For Cough and chest congestion try one of the following: - Mucinex or Robitussin are expectorants. - Delsym is a cough suppressant: - If you have high blood pressure or hypertension it is safe to take Coricidin? HBP Cough AND Cold. If you smoke it is advised that you quit smoking. CONTACT YOUR DOCTOR IF: You have fevers for longer than five days or a fever more than 101 degrees You are still sick after 10 days Symptoms worsen or do not improve 4. You develop nausea, vomiting, diarrhea, or a rash. Go to the ER if you - experience pressure or pain in your chest - experience difficulty swallowing - experience difficulty breathing [facility] 07-07-2022 Instructions Deisy Dan APRN.INFORMATION SECURITY SPECIALIST - 07/07/2022 5:08 PM EDT ASSESSMENT/PLAN: 1. Fluid level behind tympanic membrane of both ears - ICD9: 381.4, ICD10: H65.93 (primary diagnosis) - Supportive care with plenty of fluids, rest, and analgesia prn. - FLUTICASONE PROPIONATE 50 MCG/ACTUATION NASAL SPRAY,SUSPENSION 2. Upper respiratory tract infection, unspecified type - ICD9: 465.9, ICD10: J06.9 - Discussed viral etiology and rationale for treatment. - Symptomatic treatment with prn analgesia - Supportive care with fluids and rest - Drink lots of fluids - Make sure you are eating well - Get plenty of rest - - ibuprofen every 8 hours as needed for discomfort - acetaminophen every 4-6 hours as needed for fever and discomfort. - may alternate ibuprofen and acetaminophen For nasal congestion try: -Vaporizers, Neti Pot, humidifiers, hot showers, and hot fluids help open respiratory and sinus passages. -Nasal Marble may offer relief of nasal and head congestion 2-3 times per day as needed. - Sudafed is a safe and effective decongestant for people who do not have high blood pressure. Do not take Sudafed if you have ever been told that you have high blood pressure or hypertension. For Sore Throat try: - Salt water gargles every 2-3 hours as needed for discomfort - Chloraceptic spray or throat lozenges (Cepacol) For Cough and chest congestion try one of the following: - Mucinex or Robitussin are expectorants. - Delsym is a cough suppressant: - If you have high blood pressure or hypertension it is safe to take Coricidin HBP Cough & Cold. If you smoke it is advised that you quit smoking. CONTACT YOUR DOCTOR IF: You have fevers for longer than five days or a fever more than 101 degrees You are still sick after 10 days Symptoms worsen or do not improve 4. You develop nausea, vomiting, diarrhea, or a rash. Go to the ER if you - experience pressure or pain in your chest - experience difficulty swallowing - experience difficulty breathing documented in this encounter [facility] 07-07-2022 History of Presen t illness Narrative Brenda Curran 27 year old female presents to the [facility] with concerns of right ear pain. [facility] had real bad infection last year in the same ear. She did have URI recently. 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 this has been ongoing for 2 days. treatments tried otc cold medications with some relief. covid/flu exposure- none known- not concerned and declines testing Ear Infection (Symptom pain in right ear ) BP 121/54 Pulse 75 Temp 36.5 C (97.7 F) (Temporal) Resp 20 Wt 80.5 kg (177 lb 6.4 oz) LMP 07/07/2022 SpO2 100% BMI 30.45 kg/m Review of Systems Constitutional: Negative. HENT: Positive for ear pain and rhinorrhea. Negative for congestion. As noted in HPI Respiratory: Positive for cough. Cardiovascular: Negative. Social History Tobacco Use Smoking status: Never Smokeless tobacco: Never Substance Use Topics Alcohol use: No Drug use: No PAST MEDICAL HISTORY Diagnosis Date PMH - PAST MEDICAL HISTORY OF Color Vision - Normal Syncope Resolved Current Outpatient Medications Medication Sig Dispense Refill SPRINTEC 0.25-35 mg-mcg per tablet Take 1 tablet by mouth once daily. 84 tablet 0 No current facility-administered medications for this visit. Physical Exam Vitals reviewed. Constitutional: General: She is not in acute distress. Appearance: Normal appearance. She is not ill-appearing. HENT: Right Ear: A middle ear effusion is present. Tympanic membrane is not erythematous. Left Ear: A middle ear effusion is present. Tympanic membrane is not erythematous. Nose: Congestion present. No mucosal edema or rhinorrhea. Mouth/Throat: Mouth: Mucous membranes are moist. Pharynx: Oropharynx is clear. No oropharyngeal exudate or posterior oropharyngeal erythema. Cardiovascular: Rate and Rhythm: Normal rate and regular rhythm. Pulmonary: Effort: Pulmonary effort is normal. No respiratory distress. Breath sounds: Normal breath sounds. No wheezing or rales. Lymphadenopathy: Cervical: No cervical adenopathy. Skin: General: Skin is warm and dry. Neurological: Mental Status: She is alert. ASSESSMENT/PLAN: 1. Fluid level behind tympanic membrane of both ears - ICD9: 381.4, ICD10: H65.93 (primary diagnosis) - Supportive care with plenty of fluids, rest, and analgesia prn. - FLUTICASONE PROPIONATE 50 MCG/ACTUATION NASAL SPRAY,SUSPENSION 2. Upper respiratory tract infection, unspecified type - ICD9: 465.9, ICD10: J06.9 - Discussed viral etiology and rationale for treatment. - Symptomatic treatment with prn analgesia - Supportive care with fluids and rest Deisy Dan APRN.INFORMATION SECURITY SPECIALIST - Drink lots of fluids - Make sure you are eating well - Get plenty of rest - - ibuprofen every 8 hours as needed for discomfort - acetaminophen every 4-6 hours as needed for fever and discomfort. - may alternate ibuprofen and acetaminophen For nasal congestion try: -Vaporizers, Neti Pot, humidifiers, hot showers, and hot fluids help open respiratory and sinus passages. -Nasal Marble may offer relief of nasal and head congestion 2-3 times per day as needed. - Sudafed is a safe and effective decongestant for people who do not have high blood pressure. Do not take Sudafed if you have ever been told that you have high blood pressure or hypertension. For Sore Throat try: - Salt water gargles every 2-3 hours as needed for discomfort - Chloraceptic spray or throat lozenges (Cepacol) For Cough and chest congestion try one of the following: - Mucinex or Robitussin are expectorants. - Delsym is a cough suppressant: - If you have high blood pressure or hypertension it is safe to take Coricidin HBP Cough & Cold. If you smoke it is advised that you quit smoking. CONTACT YOUR DOCTOR IF: You have fevers for longer than five days or a fever more than 101 degrees You are still sick after 10 days Symptoms worsen or do not improve 4. You develop nausea, vomiting, diarrhea, or a rash. Go to the ER if you - experience pressure or pain in your chest - experience difficulty swallowing - experience difficulty breathing documented in this encounter [facility] 09-29-2021 Note HNO ID: [id number] Author: Roc Pedraza MD Service: ? Author Type: Physician Type: Progress Notes Filed: 09/29/2021 8:37 AM Note Text: VIRTUAL VISIT PROGRESS NOTE This is a virtual visit using Atterocor video visit. It required patient-provider interaction for the medical decision making as documented below. Brenda Curran is a 26 year old female seen for sinus/ear concern. She reports she was treated for an ear infection about 2 months ago and since that time, sinus symptoms and cough improved but have not completely resolved. She took partial courses of augmentin and omnicef, but stopped early due to GI side effects. In the past 2 weeks her sinus symptoms have been worse with congestion and pressure and in the past 1 week her ears have felt worse, similar to previous infections. 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 HISTORY REVIEWED (electronic chart updated): PAST MEDICAL HISTORY Diagnosis Date - PMH - PAST MEDICAL HISTORY OF Color Vision - Normal - Syncope Resolved PAST SURGICAL HISTORY Procedure Laterality Date - KNEE SCOPE,DIAGNOSTIC Arthroscopy, knee, ACL Repair FAMILY HISTORY Problem Relation Age of Onset - Lipids Mother High Cholesterol - Coronary Artery Disease Maternal Grandfather By-pass - other (High Cholesterol) Other Maternal side - Hypertension Other Maternal AND Paternal sides Social History Tobacco Use - Smoking status: Never Smoker - Smokeless tobacco: Never Used Substance Use Topics - Alcohol use: No - Drug use: No Current Outpatient Medications Medication Sig - doxycycline hyclate (VIBRAMYCIN) 100 mg capsule Take 1 capsule by mouth twice daily for 7 days. - SPRINTEC 0.25-35 mg-mcg per tablet Take 1 tablet by mouth once daily. No current facility-administered medications for this visit. ALLERGIES No Known Allergies REVIEW OF SYSTEMS: As noted in HPI PHYSICAL EXAMINATION: VIDEO EXAM: (if completed, performed via video enabled technology) GENERAL: alert and appropriate, in no distress, well-hydrated, well nourished and happy, smiling, interactive RESPIRATORY: breathing non-labored NEUROLOGIC: no obvious deficit ASSESSMENT/PLAN: 1. Acute non-recurrent sinusitis, unspecified location - ICD9: 461.9, ICD10: J01.90 - Will begin treatment with as per antibiotic as written, see orders - Supportive care with plenty of fluids, rest, and analgesia prn. - Follow up in one week if symptoms persist or worsen, in person for exam. - Offered covid testing, wishes to defer which is reasonable since she is out of window for antibody treatment / contagion - DOXYCYCLINE HYCLATE 100 MG CAPSULE I spent a total of 15 minutes on the date of the service which included preparing to see the patient, [id number] patient care, completing clinical documentation, counseling and educating the patient/family/caregiver and ordering medications, tests, or procedures Roc Pedraza MD [facility] documented as of this encounter (statuses as of 07/07/2022) [facility] History of Past illness Narrative* Problem Noted Date Resolved Date Tear of meniscus of right knee 01/22/2014 0 01/31/2014 documented as of this encounter (statuses as of 10/30/2022) [place] [id number] History of Past illness Narrative* Problem Noted Date Diagnosed Date Resolved Date Tear of meniscus of right knee 01/22/2014 01/31/2014 documented as of this encounter (statuses as of 07/04/2023) [facility] Diagnosis Fluid level behind tympanic membrane of both ears- Primary Upper respiratory tract infection, unspecified type [facility] Diagnosis Encounter for gynecological examination (general) (routine) without abnormal findings- Primary Encounter for screening for malignant neoplasm of cervix Screening for malignant neoplasm of the cervix Obesity, Class I, BMI 30-34.9 Obesity, unspecified [facility] Diagnosis Sore throat- Primary Acute pharyngitis Strep throat Streptococcal sore throat documented in this encounter [facility] Summary Purpose Family History No Family History Records FoundNo Family History Records Found Advance Directives No Advanced Directives Records FoundNo Advanced Directives Records Found Additional Source Comments INFORMATION SOURCE (unrecogn ized section and content) DATE CREATED AUTHOR AUTHOR'S ORGANIZ ATION 07/05/2023 [facility] Source Comments (unrecognize d section and content) In the event this informatio n is protected by the Federal Confidentiality of Alcohol and Drug Abuse Patient Records regulations: The Federal rules restrict any use of the information to criminally investigate or prosecute any alcohol or drug abuse patient.[facility] the event this information is protected by the Federal Confidentiality of Alcohol and Drug Abuse Patient Records regulations: The Federal rules restrict any use of the information to criminally investigate or prosecute any alcohol or drug abuse patient.[facility] the event this information is protected by the Federal Confidentiality of Alcohol and Drug Abuse Patient Records regulations: The Federal rules restrict any use of the information to criminally investigate or prosecute any alcohol or drug abuse patient.[facility] Reason for Visit (unrecogniz ed section and content) Reason Comments Well Woman Reason Comments Sore Throat BARRERA, fever, chills x1 day Care Teams (unrecognized sec tion and content) 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 This clinical summary was aggregated from multiple sources. Caution should be exercised in using it in the provision of clinical care. This summary normalizes information from multiple sources, and as a consequence, information in this document may materially change the coding, format and clinical context of patient data. In addition, data may be omitted in some cases. CLINICAL DECISIONS SHOULD BE BASED ON THE PRIMARY CLINICAL RECORDS. [employer] provides no warranty or guarantee of the accuracy or completeness of information in this document.
== END | disposition home or self-care (01) ==
LOC: LAB 16:15
PROVIDERS: PCP Family Medicine; Referring Provider Nurse Practitioner Women's Health; Visit Provider Nurse Practitioner Women's Health
DX: O26.859 Spotting complicating pregnancy, unspecified trimester (principal); Z3A.00 Weeks of gestation of pregnancy not specified
CPT/HCPCS: 36415; 84702; 86850; 86900; 86901

== ENCOUNTER → 2023-12-17 | Outpatient (CLI) | payer OTHER, SELFPAY ==
--- NOTE | 2023-12-17 16:26 | US_ITS ---
INDICATION: dates/viability EXAMINATION: Ultrasound US OB Transvaginal TECHNIQUE: Transvaginal pelvic ultrasound was performed. Grayscale, spectral waveform, and color flow Doppler evaluation of the adnexa. COMPARISON: None. LMP: [11/02/2023 correlating with 6 weeks 3 days gestation estimated delivery date 08/08/2024 Beta-hCG: Unknown FINDINGS: UTERUS: Anteverted uterus 9.4 x 4.7 x 5.0 cm with unremarkable myometrium. Cervix is long and closed.. Small cervical nabothian cyst. RIGHT OVARY: 1.7 x 1.6 x 2.1 cm. Normal parenchymal appearance. LEFT OVARY: 2.2 x 2.4 x 2.9 cm with 1.7 x 1.6 x 1.7 cm complex luteal cyst. FREE FLUID: None. INTRAUTERINE GESTATIONAL SAC(s) (size/shape): Single fundal intrauterine gestational sac with normal shape. Small lower uterine segment perigestational hemorrhage. Small right and left mid body perigestational hemorrhage. Together images involve less than 25% sac circumference.. YOLK SAC: Single 3.5 mm yolk sac with slightly irregular shape. POLE: Single pole with crown-rump length 0.78 cm correlating with 6 weeks 6 days gestation estimated delivery date 08/05/2024. HEART MOTION: 124 bpm. PLACENTA: Not visualized due to age. SUBCHORIONIC HEMORRHAGE: As above. AMNIOTIC FLUID: Qualitatively normal. US/Transvaginal w/Preg US IMPRESSION: Single live intrauterine with normal heart rate. Small lower uterine segment and right and left mid body perigestational hemorrhages of unknown clinical significance, involving combined less than 25% sac circumference. The yolk sac is also mildly irregular. Consider ultrasound follow-up in 2-4 weeks or as clinically indicated. Estimated gestational age by crown-rump length is concordant with provided dating. Electronically Signed: Kevin Serrano MD at 10:02 [facility] ,
--- OUTSIDE RECORDS SUMMARY | 2023-12-17 17:38 | XMS RPT_ITS | CCD ---
Author Name Unknown Address [address] [place] [address] Organization [facility] Care Team Providers Care Ultrasound Manager Name Role Phone Corinna Goetz LPN Unavailable [phone] Corinna Goetz LPN Unavailable Steve Keita MD Primary Care Provider Steve [...] 14:52-0400 Body temperature 97.11 [degF] Jerry Lopez VP HUMAN [employer]OURCES.SECRETARIAL TEACHER Work Phone: [facility] 07-04-2023 14:52-0400 Body weight 83.01 kg Jerry Lopez VP [employer]UMAN [employer]OURCES.SECRETARIAL TEACHER Work Phone: [facility] 07-04-2023 14:52-0400 Diastolic blood pressure 75 mm[Hg] Jerry Lopez VP HUM[employer].SECRETARIAL TEACHER Work Phone: [facility] 07-04-2023 14:52-0400 Heart rate 94 /min Jerry Lopez VP [employer]UM[employer].SECRETARIAL TEACHER Work Phone: [facility] 07-04-2023 14:52-0400 Respiratory rate 18 /min Jerry Lopez VP [employer]UM[employer].SECRETARIAL TEACHER Work Phone: [facility] 07-04-2023 14:52-0400 SaO2% (BldA) [Mass fraction] 99 % Jerry Lopez VP [employer]UM[employer].SECRETARIAL TEACHER Work Phone: [facility] 07-04-2023 14:52-0400 Systolic blood pressure 121 mm[Hg] Jerry Lopez VP [employer]UM[employer].SECRETARIAL TEACHER Work Phone: [facility] 10-30-2022 14:56-0500 Body height 162.6 cm Roxann Ericka VP [employer].SECRETARIAL TEACHER Work Phone: [facility] 10-30-2022 14:56-0500 Body weight 79.38 kg Roxann Chavis VP [employer].SECRETARIAL TEACHER Work Phone: [facility] 10-30-2022 14:56-0500 Diastolic blood pressure 69 mm[Hg] Roxann Ericka VP HUM[employer].SECRETARIAL TEACHER Work Phone: [facility] 10-30-2022 14:56-0500 Heart rate 78 /min Roxann Syeth VP [employer].SECRETARIAL TEACHER Work Phone: [facility] 10-30-2022 14:56-0500 Systolic blood pressure 107 mm[Hg] Roxann Ericka VP HUMAN [employer].SECRETARIAL TEACHER Work Phone: [facility] 07-07-2022 16:56-0400 Body temperature 97.7 [degF] Deisy Dan VP HUMAN RESOURCES.SECRETARIAL TEACHER Work Phone: [facility] 07-07-2022 16:56-0400 Body weight 80.47 kg Deisy Dan VP [employer]UM[employer].SECRETARIAL TEACHER Work Phone: [facility] 07-07-2022 16:56-0400 Diastolic blood pressure 54 mm[Hg] Deisy Dan VP HUMAN [employer].SECRETARIAL TEACHER Work Phone: [facility] 07-07-2022 16:56-0400 Heart rate 75 /min Deisy Dan VP [employer].SECRETARIAL TEACHER Work Phone: [facility] 07-07-2022 16:56-0400 Respiratory rate 20 /min Deisy Dan VP [employer].SECRETARIAL TEACHER Work Phone: [facility] 07-07-2022 16:56-0400 SaO2% (BldA) [Mass fraction] 100 % Deisy Dan VP [employer]UM[employer].SECRETARIAL TEACHER Work Phone: [facility] 07-07-2022 16:56-0400 Systolic blood pressure 121 mm[Hg] Deisy Dan VP HUMAN [employer].SECRETARIAL TEACHER Work Phone: [facility] 05-27-2017 13:27-0400 BMI (Body Mass Index) 26.43 kg/m2 Corinna Goetz LPN [facility] Work Phone: 05-27-2017 13:27-0400 Body Temperature 98.1 [degF] Corinna Goetz LPN [facility] Work Phone: 05-27-2017 13:27-0400 BP Diastolic 74 mm[Hg] Corinna Goetz LPN [facility] Work Phone: 05-27-2017 13:27-0400 BP Systolic 102 mm[Hg] Corinna Goetz LPN [facility] Work Phone: 05-27-2017 13:27-0400 Height 162.56 cm Corinna Goetz LPN [facility] Work Phone: 05-27-2017 13:27-0400 Pulse (Heart Rate) 81 /min Corinna Goetz LPN [facility] Work Phone: 05-27-2017 13:27-0400 Respiratory Rate 14 /min Corinna Goetz LPN [facility] Work Phone: 05-27-2017 13:27-0400 Weight 69.85 kg Corinna Goetz LPN [facility] Work Phone: Encounters Encounter Date Encounter Type Care Provider Facility Start: 07-04-2023 End: 07-04-2023 ambulatory [facility] Facility:[facility] Start: 07-04-2023 End: 07-04-2023 Office outpatient visit 25 minutes Jerry Lopez APRN.CNP Work Phone: [facility] Procedures Date Procedure Procedure Detail Performing Clinician Start: 07-04-2023 STREP A MOLECULAR (POC) Lupe West PA-C Work Phone: Start: 05-27-2017 End: 05-27-2017 Pre-employment PE Ricardo RYAN Work Phone: Plan of Treatment Date Care Activity Detail Author Start: 10-30-2025 Pap Testing Pap Testing [facility] Start: 06-11-2023 Influenza vaccination Influenza Vaccine (#1) [facility] Start: 10-11-2022 DEPRESSION ASSESSMENT DEPRESSION ASSESSMENT [facility] Start: 06-11-2022 Influenza vaccination INFLUENZA (#1) [facility] Start: 10-11-2021 DEPRESSION ASSESSMENT DEPRESSION ASSESSMENT [facility] Start: 11-26-2020 PAP TESTING PAP TESTING [facility] Start: 04-23-2018 Urine microalbumin profile [facility] Start: 05-27-2017 End: 05-27-2017 Appointment Appointment [facility] Work Phone: Start: 2014 HEPATITIS C SCREENING HEPATITIS C SCREENING [facility] Start: 2014 HIV SCREENING HIV SCREENING [facility] Start: 03-15-2014 HPV VACCINE (3 - 3-dose series) HPV VACCINE (3 - 3-dose series) [facility] Start: 2010 PEDS TO ADULT TRANSITION ANNUAL ASSESSMENT PEDS TO ADULT TRANSITION ANNUAL ASSESSMENT [facility] Start: 2008 PEDS TO ADULT TRANSITION INITIAL DISCUSSION PEDS TO ADULT TRANSITION INITIAL DISCUSSION [facility] Start: 1996 COVID-19 VACCINE (#1) COVID-19 VACCINE (#1) [facility] PAP FLUID CERVICAL SCREENING PAP FLUID CERVICAL SCREENING Lab Routine Encounter for gynecological examination (general) (routine) without abnormal findings Ordered: 10/30/2022 [facility] Work Phone: Immunizations Immunization Date Immunization Notes Care Provider Sivan rodriguez 11-15-2013 human papilloma viru s vaccine, quadrivalent Deisy Dan APRN.SECRETARIAL TEACHER Work Phone: [facility] Work Phone: 11-14-2012 human papilloma viru s vaccine, quadrivalent Deisy Dan VP [employer].SECRETARIAL TEACHER Work Phone: [facility] 11-14-2012 Meningococcal, MCV4, unspecified conjugate formulation(groups A, C, Y and W-135) Deisy Dna APRN.SECRETARIAL TEACHER Work Phone: [facility] 04-15-2009 Meningococcal, MCV4, unspecified conjugate formulation(groups A, C, Y and W-135) Deisy Dan VP [employer].SECRETARIAL TEACHER Work Phone: [facility] Work Phone: 04-23-2008 tetanus toxoid, reduced diphtheria toxoid, and acellular pertussis vaccine, adsorbed Deisy Dan APRN.[facility] Work Phone: [facility] Work Phone: 05-20-2001 diphtheria, tetanus toxoids and acellular pertussis vaccine Deisy Dan APRN.SECRETARIAL TEACHER Work Phone: [facility] Work Phone: 05-20-2001 measles, mumps and rubella virus vaccine Deisy Dan APRN.[facility] Work Phone: [facility] Work Phone: 05-20-2001 poliovirus vaccine, inactivated Deisy Dan APRN.[facility] Work Phone: [facility] Work Phone: 07-11-1999 Chicken Pox (disease) Jesusita Dan APRN.[facility] Work Phone: [facility] Work Phone: 07-28-1997 DTP-Haemophilus influenzae type b conjugate vaccine Jerry Lopez APRN.[facility] Work Phone: [facility] Work Phone: 07-28-1997 Tetramune Deisy Dan APRN.[facility] Work Phone: [facility] Work Phone: 05-17-1997 measles, mumps and rubella virus vaccine Deisy Dan APRN.[facility] Work Phone: [facility] Work Phone: 02-07-1997 hepatitis B vaccine, pediatric or pediatric/adolescent dosage Deisy Dan APRN.[facility] Work Phone: [facility] Work Phone: 1996 DTP-Haemophilus influenzae type b conjugate vaccine Jerry Lopez APRN.SECRETARIAL TEACHER Work Phone: [facility] Work Phone: 1996 Tetramune Deisy Dan APRN.[facility] Work Phone: [facility] Work Phone: 1996 trivalent poliovirus vaccine, live, oral Deisy Dan VP HUMAN RESOURCES.SECRETARIAL TEACHER Work Phone: [facility] Work Phone: 1996 DTP-Haemophilus influenzae type b conjugate vaccine Jerry Lopez VP HUMAN [employer]OURCES.SECRETARIAL TEACHER Work Phone: [facility] Work Phone: 1996 Tetramune Deisy Dan VP HUMAN RESOURCES.SECRETARIAL TEACHER Work Phone: [facility] Work Phone: 1996 trivalent poliovirus vaccine, live, oral Deisy Dan VP HUMAN RESOURCES.[facility] Work Phone: [facility] Work Phone: 1996 DTP-Haemophilus influenzae type b conjugate vaccine Jerry Lopez VP HUMAN RESOURCES.[facility] Work Phone: [facility] Work Phone: 1996 hepatitis B vaccine, pediatric or pediatric/adolescent dosage Deisy Dan VP HUMAN RESOURCES.SECRETARIAL TEACHER Work Phone: [facility] Work Phone: 1996 Tetramune Deisy Dan VP HUMAN RESOURCES.SECRETARIAL TEACHER Work Phone: [facility] Work Phone: 1996 trivalent poliovirus vaccine, live, oral Deisy Dan VP HUMAN [employer]OURCES.[facility] Work Phone: [facility] Work Phone: 1996 hepatitis B vaccine, pediatric or pediatric/adolescent dosage Deisy Dan VP HUMAN RESOURCES.[facility] Work Phone: [facility] Work Phone: Payers Date Payer Category Payer Unknown [id number] 2022 Unknown [id number] 2020 Unknown [id number] 2020 Unknown [id number] Social History Date Type Detail Facility Start: 01-22-2014 Tobacco smoking stat us NHIS Never smoked tobacco [facility] Work Phone: Start: 01-22-2014 Tobacco use and exposure Smokeless tobacco non-user [facility] Work Phone: Start: 07-07-2022 End: 07-04-2023 Alcohol intake Current non-drinker of alcohol (finding) [facility] Start: 1995 Sex Assigned At Female C [facility] Start: 06-27-2022 End: 07-07-2022 Exposure to SARS-CoV-2 (event) Not sure [facility] Start: 10-30-2022 End: 07-04-2023 History of Social function [facility] Start: 10-30-2022 End: 07-04-2023 Tobacco use panel [facility] National Score (1-10 0), lower number is lower risk 53 [facility] Start: 09-26-2021 Gender identity Identifies as female gender (finding) [facility] Start: 09-26-2021 Sexual orientation Heterosexual (fin melissa) [facility] Clinical Notes 01-22-2014 to 07-04-2023 Jerry Lopez APRN.SECRETARIAL TEACHER - 07/04/2023 2:59 PM EDTPatient InstructionsRoxann Chavis APRN.SECRETARIAL TEACHER - 10/30/2022 2:44 PM ESTPatient InstructionsDeisy Dan APRN.SECRETARIAL TEACHER - 07/07/2022 4:57 PM EDT Note Date & Type Note Facility 07-04-2023 Note HNO ID: [id number] Author: Jerry Lopez APRN.SECRETARIAL TEACHER Service: ? Author Type: Nurse Practitioner Type: [...] SPX Arthroscopy, knee, ACL x2 Repair, miniscus [id number]/ 2022 ALLERGIES Patient has no known allergies. [...] swelling or pain on movement. Mouth/Throat: Lips: [place]. Mouth: Mucous membranes are moist. Pharynx: Oropharynx [...] of care. This note was generated using Reality Jockey software. It may contain errors in wording, punctuation, or spelling. Jerry Lopez APRN.[facility] 07-04-2023 History of Presen t illness Narrative [...] SPX Arthroscopy, knee, ACL x2 Repair, miniscus [id number]/ 2022 ALLERGIES Patient has no known allergies. [...] Use: current everyday user Substances: Nicotine Devices: [employer] tank Substance Use Topics Alcohol use: No [...] swelling or pain on movement. Mouth/Throat: Lips: [place]. Mouth: Mucous membranes are moist. Pharynx: Oropharynx [...] of care. This note was generated using Reality Jockey software. It may contain errors in wording, punctuation, or spelling. Jerry Lopez APRN.RUFINA documented in this encounter [facility] 10-30-2022 Note HNO ID: [id number] Author: Roxann Chavis APRN.RUFINA Service: ? Author Type: Nurse Practitioner Type: Progress Notes Filed: 10/30/2022 4:38 PM Note Text: Brenda is a 27 year old who presents with the following complaints: New to [facility], establishing care for an annual gynecologic exam . Last LICENSED AUDIOLOGIST visit 11/26/2017 Irregular bleeding for one month [...] L0 SAB0 IAB0 Ectopic0 Multiple0 Live Births0 Account Support Analyst History LMP: 10/01/2022, Having periods Age at Menarche: 13 Age at First : Age at Menopause: Account Support Analyst History Comments: Sexual Activity: Yes; Male; Engaged,Same [...] Use: current everyday user Substances: Nicotine Devices: [employer] tank Substance Use Topics Alcohol use: No [...] external genitalia normal, normal Bartholin's glands, urethra, Wassaic's glands, no vulvar lesions, no cervical lesions, [...] or sooner as needed Joi Gottlieb APRN. SECRETARIAL TEACHER Attending Note I have personally performed a face to face assessment of the patient and have reviewed the ELDER note. I performed a substantive (more content not included)... [facility] 10-30-2022 Instructions Roxann Chavis APRN.CNP - 10/30/2022 [...] health screening schedule is recommended by the [employer] (ACOG). Some [...] also increase risk. documented in this encounter [facility] 10-30-2022 History of Presen t illness Narrative Brenda is a 27 year old who presents with the following complaints: New to [facility], establishing care for an annual gynecologic exam . Last LICENSED AUDIOLOGIST visit 11/26/2017 Irregular bleeding for one month [...] L0 SAB0 IAB0 Ectopic0 Multiple0 Live Births0 Account Support Analyst History LMP: 10/01/2022, Having periods Age at Menarche: 13 Age at First : Age at Menopause: Account Support Analyst History Comments: Sexual Activity: Yes; Male; Engaged,Same [...] Use: current everyday user Substances: Nicotine Devices: [employer] tank Substance Use Topics Alcohol use: No [...] external genitalia normal, normal Bartholin's glands, urethra, Wassaic's glands, no vulvar lesions, no cervical lesions, [...] Time: 3:51 PM documented in this encounter [facility] 07-07-2022 Note HNO ID: [id number] Author: Deisy Dan APRN.CNP Service: ? Author Type: Nurse Practitioner Type: Progress Notes Filed: 07/07/2022 5:08 PM Note Text: Brenda Curran 27 year old female presents to the [facility] with concerns of right ear pain. [facility] had real bad infection last year in the same ear. She did have URI recently. 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 -Nasal [place] may offer relief of nasal and head [...] experience difficulty swallowing - experience difficulty breathing [facility] 07-07-2022 Instructions Deisy Dan APRN.SECRETARIAL TEACHER - 07/07/2022 5:08 PM EDT ASSESSMENT/PLAN: 1. [...] help open respiratory and sinus passages. -Nasal [place] may offer relief of nasal and head [...] experience difficulty breathing documented in this encounter [facility] 07-07-2022 History of Presen t illness Narrative Brenda Curran 27 year old female presents to the [facility] with concerns of right ear pain. [facility] had real bad infection last year in the same ear. She did have URI recently. 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 -Nasal [place] may offer relief of nasal and head [...] experience difficulty breathing documented in this encounter [facility] 09-29-2021 Note HNO ID: [id number] Author: Roc Pedraza MD Service: ? Author Type: Physician Type: Progress Notes Filed: 09/29/2021 8:37 AM Note Text: VIRTUAL VISIT PROGRESS NOTE This is a virtual visit using Groopt video visit. It required patient-provider interaction for [...] which included preparing to see the patient, [id number] patient care, completing clinical documentation, counseling and educating the patient/family/caregiver and ordering medications, tests, or procedures Roc Pedraza MD [facility] documented as of this encounter (statuses as of 07/07/2022) [facility] History of Past illness Narrative* Problem Noted Date Resolved Date Tear of meniscus of right knee 01/22/2014 0 01/31/2014 documented as of this encounter (statuses as of 10/30/2022) [place] [address]-14-2014 History of Past illness Narrative* Problem Noted Date Diagnosed Date Resolved Date Tear of meniscus of right knee 01/22/2014 01/31/2014 documented as of this encounter (statuses as of 07/04/2023) [facility] Diagnosis Fluid level behind tympanic membrane of both ears- Primary Upper respiratory tract infection, unspecified type [facility] Diagnosis Encounter for gynecological examination (general) (routine) without abnormal findings- Primary Encounter for screening for malignant neoplasm of cervix Screening for malignant neoplasm of the cervix Obesity, Class I, BMI 30-34.9 Obesity, unspecified [facility] Diagnosis Sore throat- Primary Acute pharyngitis Strep throat Streptococcal sore throat documented in this encounter [facility] Summary Purpose Family History No Family History Records FoundNo Family History Records Found Advance Directives No Advanced Directives Records FoundNo Advanced Directives Records Found Additional Source Comments INFORMATION SOURCE (unrecogn ized section and content) DATE CREATED AUTHOR AUTHOR'S ORGANIZ ATION 07/05/2023 [facility] Source Comments (unrecognize d section and content) In the event this informatio n is protected by the Federal Confidentiality of Alcohol and Drug Abuse Patient Records regulations: The Federal rules restrict any use of the information to criminally investigate or prosecute any alcohol or drug abuse patient.[facility] the event this information is protected by the Federal Confidentiality of Alcohol and Drug Abuse Patient Records regulations: The Federal rules restrict any use of the information to criminally investigate or prosecute any alcohol or drug abuse patient.[facility] the event this information is protected by the Federal Confidentiality of Alcohol and Drug Abuse Patient Records regulations: The Federal rules restrict any use of the information to criminally investigate or prosecute any alcohol or drug abuse patient.[facility] Reason for Visit (unrecogniz ed section and content) Reason Comments Well Woman Reason Comments Sore Throat BARRERA, fever, chills x1 day Care Teams (unrecognized sec tion and content) Ultrasound Manager Relationship Specialty Start Date End Date Steve Keita MD [address] [place] [address] PCP - General Family Medicine 06/30/21 Ultrasound Manager Relationship Specialty Start Date End Date Steve Keita MD [address] [place] [address] PCP - General Family Medicine 06/30/21 FOR [...] BE BASED ON THE PRIMARY CLINICAL RECORDS. [employer] provides no warranty or guarantee of the accuracy or completeness of information in this document.
[2023-12-17 17:54] LABS: hCG Titer Quant., Serum 31784 mIU/mL (1-3)
== END | disposition home or self-care (01) ==
LOC: US 16:11
PROVIDERS: PCP Family Medicine; Referring Provider Nurse Practitioner Women's Health; Visit Provider Nurse Practitioner Women's Health
DX: O26.859 Spotting complicating pregnancy, unspecified trimester (principal); Z3A.00 Weeks of gestation of pregnancy not specified
CPT/HCPCS: 36415; 76817; 84702

== ENCOUNTER → 2023-12-27 | Outpatient (CLI) | payer OTHER, SELFPAY ==
[2023-12-30 08:12] LABS: Chlamydia By Nucleic Acid AMP Negative (Negative); Gonococcus By Nucleic Acid AMP Negative (Negative)
[2023-12-31 17:29] LABS: HPV Reflexed? NOT INDICATED
== END | disposition home or self-care (01) ==
LOC: LABSPEC 14:29
PROVIDERS: PCP Family Medicine; Referring Provider Obstetrics & Gynecology; Visit Provider Obstetrics & Gynecology
DX: Z34.90 Encounter for supervision of normal pregnancy, unspecified, unspecified trimester (principal); Z3A.00 Weeks of gestation of pregnancy not specified
CPT/HCPCS: 87086; 87491; 87591; 88175; G0145

== ENCOUNTER → 2024-01-12 | Outpatient (CLI) | payer OTHER, SELFPAY ==
[2024-01-12 11:53] LABS: Absolute Lymphocyte Count 1.58 X10^3/uL (0.83-4.51); Absolute Neutrophil Count 6.3 X10^3/uL (2.0-7.7); Basophil# 0.04 X10^3/uL; Basophil% 0.5 % (0-1); Eosinophil# 0.04 X10^3/uL; Eosinophils% 0.5 % (0-5); Hematocrit 37.6 % (37-47); Hemoglobin 12.2 g/dL (12.0-15.0); Lymphocyte # 1.58 X10^3/ul (0.83-4.51); Lymphocyte % 18.9 % (19-41); Mean Corp Hgb Conc 32.4 g/dL (32-36); Mean Corpuscular Hgb 29.3 pg (27.0-32.0); Mean Corpuscular Volume 90.4 fL (81-99); Mean Platelet Vol. 9.6 fl (6.2-12.0); Monocyte# 0.41 X10^3/uL; Monocyte% 4.9 % (0-10); NRBC Flagged by Analyzer 0 % (0-5); Neutrophil # 6.27 X10^3/uL (2.7-7.7); Neutrophil % 74.8 % (47-70); Platelet Count 285 K/mm3 (150-450); RBC Distribution Width CV 13.1 % (11.6-14.6); RBC Distribution Width SD 43.2 fl (35.1-43.9); Red Blood Count 4.16 M/mm3 (4.2-5.4); White Blood Count 8.4 K/mm3 (4.4-11.0)
[2024-01-12 12:48] LABS: HIV - WCH Non-Reactive (Nonreactive); Hepatitis B Surface Antigen Non-Reactive (Nonreactive); Hepatitis C Antibody Non-Reactive (Nonreactive); Rubella IgG Reactive (Nonreactive); Syphilis Antibodies Non-reactive
== END | disposition home or self-care (01) ==
LOC: PAVLAB 11:28
PROVIDERS: PCP Family Medicine; Referring Provider Obstetrics & Gynecology; Visit Provider Obstetrics & Gynecology
DX: O09.90 Supervision of high risk pregnancy, unspecified, unspecified trimester (principal); Z3A.00 Weeks of gestation of pregnancy not specified; Z31.5 Encounter for procreative genetic counseling
CPT/HCPCS: 36415; 85025; 86703; 86762; 86780; 86803; 86850; 86900; 86901; 87340

== ENCOUNTER → 2024-05-01 | Outpatient (CLI) | payer OTHER, SELFPAY ==
[2024-05-01 09:38] LABS: Absolute Lymphocyte Count 1.45 X10^3/uL (0.83-4.51); Absolute Neutrophil Count 8.3 X10^3/uL (2.0-7.7); Basophil# 0.03 X10^3/uL; Basophil% 0.3 % (0-1); Hematocrit 32.2 % (37-47); Hemoglobin 10.2 g/dL (12.0-15.0); Lymphocyte # 1.45 X10^3/ul (0.83-4.51); Mean Corp Hgb Conc 31.7 g/dL (32-36); Mean Corpuscular Hgb 29.7 pg (27.0-32.0); Mean Corpuscular Volume 93.6 fL (81-99); Mean Platelet Vol. 9.3 fl (6.2-12.0); Monocyte# 0.37 X10^3/uL; Monocyte% 3.6 % (0-10); NRBC Flagged by Analyzer 0 % (0-5); Neutrophil # 8.31 X10^3/uL (2.7-7.7); Neutrophil % 80.3 % (47-70); Platelet Count 247 K/mm3 (150-450); RBC Distribution Width CV 13.1 % (11.6-14.6); RBC Distribution Width SD 44.7 fl (35.1-43.9); Red Blood Count 3.44 M/mm3 (4.2-5.4); White Blood Count 10.3 K/mm3 (4.4-11.0)
[2024-05-01 09:53] LABS: Glucose Challenge Gest 1H 50g 141 mg/dL (70-140)
[2024-05-01 10:27] LABS: HIV - WCH Non-Reactive (Nonreactive); Syphilis Antibodies Non-reactive
== END | disposition home or self-care (01) ==
PROVIDERS: Obstetrics & Gynecology; PCP Family Medicine; Referring Provider Advanced Practice Midwife; Visit Provider Advanced Practice Midwife
DX: O26.899 Other specified pregnancy related conditions, unspecified trimester (principal); R30.0 Dysuria; Z3A.00 Weeks of gestation of pregnancy not specified; O09.92 Supervision of high risk pregnancy, unspecified, second trimester; Z13.1 Encounter for screening for diabetes mellitus
CPT/HCPCS: 36415; 82950; 85025; 86703; 86780; 87086

== ENCOUNTER → 2024-05-12 | Outpatient (CLI) | payer OTHER, SELFPAY ==
[2024-05-12 07:27] LABS: Bedside Glucose 92 mg/dL (74-106)
[2024-05-12 08:26] LABS: Glucose GTT-Gestation. Fasting 86 mg/dL (<105)
[2024-05-12 09:08] LABS: Glucose GTT-Gestational 1 Hr 121 mg/dL (<190)
[2024-05-12 09:43] LABS: Glucose GTT-Gestational 2 Hr 118 mg/dL (<165)
[2024-05-12 11:19] LABS: Glucose GTT-Gestational 3 Hr 94 L (<145)
== END | disposition home or self-care (01) ==
LOC: LAB 06:48
PROVIDERS: PCP Family Medicine; Referring Provider Obstetrics & Gynecology; Visit Provider Obstetrics & Gynecology
DX: Z13.1 Encounter for screening for diabetes mellitus (principal)
CPT/HCPCS: 36415; 82951; 82952; 82962

== ENCOUNTER → 2024-06-30 | Outpatient (CLI) | payer OTHER, SELFPAY ==
[2024-06-30 17:09] LABS: Absolute Lymphocyte Count 2.45 X10^3/uL (0.83-4.51); Basophil# 0.03 X10^3/uL; Basophil% 0.2 % (0-1); Eosinophil# 0.09 X10^3/uL; Eosinophils% 0.7 % (0-5); Hematocrit 31.4 % (37-47); Hemoglobin 9.8 g/dL (12.0-15.0); Lymphocyte # 2.45 X10^3/ul (0.83-4.51); Lymphocyte % 19.7 % (19-41); Mean Corp Hgb Conc 31.2 g/dL (32-36); Mean Corpuscular Hgb 27.5 pg (27.0-32.0); Mean Corpuscular Volume 88.2 fL (81-99); Mean Platelet Vol. 10.2 fl (6.2-12.0); Monocyte% 6.4 % (0-10); NRBC Flagged by Analyzer 0 % (0-5); Neutrophil # 8.99 X10^3/uL (2.7-7.7); Neutrophil % 72.4 % (47-70); Platelet Count 287 K/mm3 (150-450); RBC Distribution Width CV 13.2 % (11.6-14.6); RBC Distribution Width SD 42.8 fl (35.1-43.9); Red Blood Count 3.56 M/mm3 (4.2-5.4); White Blood Count 12.4 K/mm3 (4.4-11.0)
== END | disposition home or self-care (01) ==
LOC: LAB 16:47
PROVIDERS: PCP Family Medicine; Referring Provider Obstetrics & Gynecology; Visit Provider Obstetrics & Gynecology
DX: O99.013 Anemia complicating pregnancy, third trimester (principal); Z3A.00 Weeks of gestation of pregnancy not specified
CPT/HCPCS: 36415; 85025

== ENCOUNTER → 2024-07-05 | Outpatient (CLI) | payer OTHER, SELFPAY | END | disposition home or self-care (01) | LOC: LABSPEC 16:59 | PROVIDERS: PCP Family Medicine; Referring Provider Obstetrics & Gynecology; Visit Provider Obstetrics & Gynecology | DX: O09.92 Supervision of high risk pregnancy, unspecified, second trimester (principal); Z3A.00 Weeks of gestation of pregnancy not specified | CPT/HCPCS: 87081 ==

== ENCOUNTER 2024-07-26 20:11 | Outpatient (CLI) | payer OTHER, SELFPAY ==
[2024-07-26 20:24] VITALS: PULSE 107; O2SAT 97
[2024-07-26 20:29] VITALS: BP 129/75; PULSE 89
[2024-07-26 20:35] VITALS: BMI 38.4
[2024-07-26 21:10] LABS: Absolute Lymphocyte Count 2.13 X10^3/uL (0.83-4.51); Absolute Neutrophil Count 7.4 X10^3/uL (2.0-7.7); Basophil# 0.02 X10^3/uL; Basophil% 0.2 % (0-1); Eosinophil# 0.07 X10^3/uL; Eosinophils% 0.7 % (0-5); Hematocrit 30.2 % (37-47); Hemoglobin 9.7 g/dL (12.0-15.0); Lymphocyte # 2.13 X10^3/ul (0.83-4.51); Lymphocyte % 20.5 % (19-41); Mean Corp Hgb Conc 32.1 g/dL (32-36); Mean Corpuscular Hgb 27.6 pg (27.0-32.0); Mean Corpuscular Volume 85.8 fL (81-99); Mean Platelet Vol. 10.5 fl (6.2-12.0); Monocyte% 6.7 % (0-10); NRBC Flagged by Analyzer 0 % (0-5); Neutrophil # 7.39 X10^3/uL (2.7-7.7); Neutrophil % 71.2 % (47-70); Platelet Count 258 K/mm3 (150-450); RBC Distribution Width CV 14.1 % (11.6-14.6); RBC Distribution Width SD 43.9 fl (35.1-43.9); Red Blood Count 3.52 M/mm3 (4.2-5.4); White Blood Count 10.4 K/mm3 (4.4-11.0)
--- NOTE | 2024-07-26 21:11 | OB.TRI.HP_ITS ---
HPI - General HPI Narrative MARIANA ROCK, is a 29 y/o @ 39 weeks 1 day who presents to L&D for evaluation after she fell in her shower. She states that she slipped and fell backwards, hit her head on a cabinet knob and fell to her butt. She is feeling movement, denies vaginal bleeding or leaking of fluid. She denies visual changes, ringing in ears, or headache other than pain at a knot that is forming on the top of her head. She declines pain medication. Maternal Data Information JEN Calculator Estimated Delivery Date Method Current WG Current Estimate 08/01/24 Ultrasound #1 39w 1d Other Estimates 08/09/24 LMP (Certain) 38w 0d PFSH PFSH Home Medications ?Medication ?Instructions ?Recorded ?Last Taken ?Type multivit-min no.71-iron fum 28 1 cap PO DAILY 12/24/23 07/25/24 History mg-folate no.1 1 mg-dha 300 mg capsule (PNV-[place]) ferrous gluconate 270 mg (27 mg 270 mg PO QDAY #30 tabs 07/03/24 07/26/24 Rx iron) tablet Allergy/AdvReac Type Severity Reaction Status Date / Time No Known Allergies Allergy Verified 07/26/24 20:36 Family History Grandmother Breast cancer, Onset Age: 60 maternal Surgical History Hx of knee surgery Social History adopted: No household members: spouse current occupational status: employed 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 [employer] current occupational exposures/hazards: No pets and animals: Yes (Avoid the litterbox) pets and animals: cat(s) and dog(s) history of recent travel: Yes (September2023) out of state: Yes out of country: No sexually active: Yes Smoking Status: Never smoker alcohol intake: current details: social- but not while substance use type: does not use well-balanced diet: about half the time caffeine: Yes Type: carbonated beverages Number of servings: 1 and coffee Number of servings: 1 eating out: 1-3 times/week during the past year weight has: remained stable what type of physical activity do you participate in: none [place]ber[place]/scientologist: None seatbelt use: always do you feel safe at home: Yes additional social history: Maximilian Long History 1 Elective abortions Hx Para 0 Spontaneous abortions Hx # Term Pregnancies Ectopic pregnancies Hx # Pregnancies Multiple births # of living children Visit Details Expected Delivery Route/Plan Labor Preferences- CB/BF classes: complete labor support person: [] labor intervention preferences: [] pain management options preferred: epidural cut cord/dad catch: will cut cord, maybe catch. : planning PP control planned: [] discussed possible routes of delivery and associated risks: [] special requests: [] Plans Covid status: [] Flu vaccine: [] Tdap vaccine: given at urgent care 04/27 at 26w2d Rhogam:na LARC form signed: declined movement and labor precautions reviewed. Problem list reviewed and updated with the most current plan of care details and appropriate orders placed. Relevant counseling for the gestational age provided. Continue routine care and follow up unless otherwise noted in visit notes/problem list details OB Flowsheet Initial Weight: Not Recorded Date -?-?-?-?-?-?-?-?-?-?-?-?- EGA Weight BP Urine Prot -?-?-?-?-?-?-?-?-?-?-?-?- Glucose FHR FuHt Pres Dilation -?-?-?-?-?-?-?-?-?-?-?-?- Effaced St Visit Note 12/27/23 -?-?-?-?-?--?-?-?-?-?-?-?- 8w 6d 190 lb 101/69 -?-?-?-?-?-?-?-?-?-?-?-?- 163 -?-?-?-?-?-?-?-?-?-?-?-?- JV- CRL measures a week over LMP. pictures from last us look a little fuzzy so changing due date. desires NIPT 02/01/24 -?-?-?-?-?-?-?-?-?-?-?-?- 14w 0d 191 lb 127/77 Negative -?-?-?-?-?-?-?-?-?-?-?-?- Negative 160 -?-?-?-?-?-?-?-?-?-?-?-?- MH-No further va ginal bleeding since NOB visit. Brief US confirms live IUP. Some nausea but managing. Normal labs. 03/23/24 -?-?-?-?-?-?-?-?-?-?-?-?- 21w 2d 195 lb 112/58 -?-?-?-?-?-?-?-?-?-?-?-?- 150 -?-?-?-?-?-?-?-?-?-?-?-?- SM- n ovb lof cr maping occasional fm 04/17/24 -?-?-?-?-?-?-?-?-?-?-?-?- 24w 6d 199 lb 4 oz 112/75 Nega tive -?-?-?-?-?-?-?-?-?-?-?-?- Negative 145 25 -?-?-?-?-?-?-?-?-?--?-?-?- KW- no vb/crampi ng. good fm. 28 week labs discussed 05/01/24 -?-?-?-?-?-?-?-?-?-?-?-?- 26w 6d 201 lb 105/74 -?-?-?-?-?-?-?-?-?-?-?-?- 140 27 -?-?-?-?-?-?-?-?-?-?-?-?- SM- no vb lof fm no regular ctx discussed 3 hr and cbc, anemia. declined CB class 05/15/24 -?-?-?-?-?-?-?-?-?-?-?-?- 28w 6d 206 lb 4 oz 109/73 Nega tive -?-?-?-?-?-?-?-?-?-?-?-?- Negative 140 29 -?-?-?-?-?-?-?-?-?-?-?-?- KW- no vb/lof/ t x. good fm. Tdap done and LARC done. 06/02/24 -?-?-?-?-?-?-?-?-?-?-?-?- 31w 3d 209 lb 6 oz 108/72 Nega tive -?-?-?-?-?-?-?-?-?-?-?-?- Negative 142 31 -?-?-?-?--?-?-?-?-?-?-?-?- kw- no vb/lof/ct x. good fm. no concerns 06/15/24 -?-?-?-?-?-?-?-?-?-?-?-?- 33w 2d 214 lb 4 oz 107/72 Nega tive -?-?-?-?-?-?-?-?-?-?-?-?- Negative 145 33 -?-?-?-?-?-?-?-?-?-?-?-?- JV- planning to get rpt cbc before next visit. no lof, vaginal bleeding, or dec fm. 06/30/24 -?-?-?-?--?-?-?-?-?-?-?-?- 35w 3d 214 lb 117/75 Negative -?-?-?-?-?-?-?-?-?-?-?-?- Negative 128 35 -?-?-?-?-?-?-?-?-?-?-?-?- LC- no vb/ctx/lo f. good fm. no concerns, obtaining cbc after visit. 07/05/24 -?-?-?-?-?-?-?-?-?-?-?-?- 36w 1d 216 lb 114/73 Negative -?-?-?-?-?-?-?-?-?-?-?-?- Negative 135 36 Cephalic -?-?-?-?-?-?-?-?-?-?-?-?- SM- no vb lof go od fm n oregular ctx 07/14/24 -?-?-?-?-?-?-?-?-?-?-?-?- 37w 3d 219 lb 115/70 -?-?-?-?-?--?-?-?-?-?-?-?- 135 37 Cephalic -?-?-?-?-?-?-?-?-?-?-?-?- SM- no vb lof go od fm no reuglar ctx 07/20/24 -?-?-?-?-?-?-?-?-?-?-?-?- 38w 2d 219 lb 116/81 Negative -?-?-?-?-?-?-?-?-?-?-?-?- Negative 140 37 Cephalic -?-?-?-?-?-?-?-?-?-?-?-?- SM- no vb lof go od fm no regualr ctx 07/26/24 -?-?-?-?-?-?-?-?-?-?-?-?- 39w 1d 222 lb 8 oz 115/73 Nega tive -?-?-?-?-?-?-?-?-?-?-?-?- Negative 145 39 Cephalic 1 -?-?-?-?-?-?-?-?-?-?-?-?- 50 -2 JV- no lof , vaginal bleeding ,or dec fm. pt wondering if she can be induced a little earlier than 41 weeks to maximize her maternity leave with the baby. will discuss more next visit. no lof, vaginal bleeding, or dec fm. ROS Constitutional Constitutional: Reports systems reviewed and no addt'l complaints, except as documented Gastrointestinal Gastrointestinal: Denies bloating, constipation, cramping, diarrhea, nausea or vomiting Genitourinary Genitourinary: Reports other Details: Denies vaginal odor, vaginal bleeding, or vaginal discharge ; Denies difficulty urinating or flank pain Physical Exam HEENT normocephalic HEENT Narrative: there is a knot on the top right of her head. No skin tearing or bleeding noted. Head and Scalp: normocephalic Eyes PERRL Neck full ROM General: trachea midline Resp normal respiratory effort and normal air movement no CVA tenderness Extremity normal to inspection General Extremity: edema bilateral (trace ) NST FHR Rate Baby A Baseline: 140 Variability:: Moderate Accelerations:: 15 x 15 Decelerations:: None NST Reactive:: Yes FHR Category:: Category I Assessment & Plan (1) Trauma during : (2) Supervision of high-risk : QUALIFIERS: Trimester: second trimester Qualified Code(s): O09.92 - Supervision of high risk , unspecified, second trimester COMMENT: [id number], JEN 08/09/24, boy nay Maximilian PLAN: Plan plan is to monitor for 2 hours, order coags and fibrinogen and if stable can go home after 2 hours. Charges/Coding Multi Select Codes Visit Charges Office Visit/Consults: 15607 OV L3 Est 20min Urinary/Genital Urinary/Genital CPT Codes: 03596-30 non-stress test Interp
[2024-07-26 21:22] LABS: International Normalized Ratio 1.1; Prothrombin Time (Protime)PT. 14.1 SECONDS (11.7-14.9)
[2024-07-26 21:23] LABS: Fibrinogen 453 mg/dl (203-444)
== END 2024-07-26 22:25 | disposition home or self-care (01) ==
LOC: WPOUT 20:15 → WP 20:16
PROVIDERS: PCP Family Medicine; Visit Provider Obstetrics & Gynecology
DX: O9A.213 Injury, poisoning and certain other consequences of external causes complicating pregnancy, third trimester (principal); Z3A.39 39 weeks gestation of pregnancy; Y92.012 Bathroom of single-family (private) house as the place of occurrence of the external cause; W18.2XXA Fall in (into) shower or empty bathtub, initial encounter; T79.9XXA Unspecified early complication of trauma, initial encounter
CPT/HCPCS: 36415; 59025; 59050; 85025; 85384; 85610; 99221; G0378

== ENCOUNTER 2024-08-01 09:45 | Inpatient (IN) | payer OTHER, SELFPAY ==
[2024-08-01] VITALS (36 sets, daily range): BP systolic 85–124; BP diastolic 51–79; PULSE 71–110; RESP 16–20; TEMP 36.1–36.7; O2SAT 96–100; BMI 37.0
[2024-08-01] MEDS: Lactated Ringers 1,000 ML 50 ML IV (10:10)
--- OUTSIDE RECORDS SUMMARY | 2024-08-01 10:12 | XMS RPT_ITS | CCD ---
Author Organization [facility] Care Team Providers Care Governor Assembler Hydraulic Name Role Phone Sofy HOOVERCorinna N Unavailable Corinna Goetz LPN N Unavailable Steve Morrison MD Primary Care Provider Steve Morrison MD Primary Care Provider IRAJ NORIEGA Referring Unavailab ALEXANDRIA Quiles Primary Care Unavailable SHANEL MEJIA Attending Unavailable Steve Morrison MD Primary Care Provider STEVE MORRISON Primary Care Unavailable STEVE MORRISON Primary Care Unavailable Medications Current Medications Medication Drug Class(es) Dates Sig (Normalized) Sig (Original) amoxicillin 500 mg oral capsule (1 source) Penicillin-class Antibacterial Start: 07-04-2023 End: 07-14-2023 take 1 capsule by mouth twice daily amoxicillin (AMOXIL) 500 mg capsule Take 1 capsule by mouth twice daily for 10 days. 20 capsule 0 07/04/2023 07/14/2023 Active Comment on above: Take 1 capsule by [facility] twice daily for 10 days. cephalexin 500 mg oral capsule (1 source) Cephalosporin Antibacterial Start: 04-27-2024 End: 05-02-2024 take 1 capsule by mouth twice daily cephALEXin (KEFLEX) 500 mg capsule Take 1 capsule by mouth two times a day for 5 days. 10 capsule 0 04/27/2024 05/02/2024 Active mupirocin 0.02 mg/mg topical ointment (1 source) RNA Synthetase Inhibitor Antibacterial Start: 04-27-2024 End: 05-02-2024 mupirocin (BACTROBAN) 2 % ointment Apply to affected area three times a day for 5 days. 30 g 0 04/27/2024 05/02/2024 Active PNV no.95/ferrous fum/folic ac ( ORAL) (1 source) PNV no.95/ferrou s fum/folic ac ( ORAL) Take by mouth. Active Completed/Discontinued Medications Medication Drug Class(es) Dates Sig (Normalized) Sig (Original) CONTROL (2 sources) Start: 05-27-2017 CONTROL CONTROL Corinna Goetz SENIOR ELECTRICAL DESIGNER Ethinyl Estradiol / norgestimate (2 sources) Progestin, Estrogen Start: 10-17-2018 End: 10-30-2022 take 1 tablet by mouth once daily SPRINTEC 0.25-35 mg-mcg per tablet Take 1 tablet by mouth once daily. 84 tablet 0 10/17/2018 10/30/2022 Discontinued (Discontinued by Patient) Start: 10-17-2018 take 1 tablet by la th once daily SPRINTEC 0.25-35 mg-mcg per tablet Take 1 tablet by mouth once daily. 84 tablet 0 10/17/2018 Active Comment on above: Take 1 tablet by la th once daily. fluticasone propionate 0.05 mg/actuat metered dose nasal spray (2 sources) Corticosteroid Start: 2 End: 3 take 1 spray(s) nasal route once daily fluticasone (FLONASE ALLERGY RELIEF) 50 mcg/actuation nasal spray Indications: Fluid level behind tympanic membrane of both ears Use 1 [place] in each nostril once daily. 1 Each 0 07/07/2022 10/30/2022 Discontinued (Course of therapy completed) Comment on above: Use 1 [place] in each nostril once daily. Problems Active Problems Problem Classification Problem Date Documented Date Episodic/Chronic Early (1 source) Partial thickness burn of left forearm; Translations: [Burn of second degree of left forearm, initial encounter] 04-27-2024 Episodic Other nutritional; endocrine; and metabolic disorders (5 sources) Obese class I; Translations: [Obesity, unspecified] Onset: 10-30-2022 Chronic Other screening for suspected conditions (not mental disorders or infectious disease) (1 source) Patient encounter status; Translations: [Encounter for screening for malignant neoplasm of cervix] Episodic Other upper respiratory infections (4 sources) Upper respiratory infection; Translations: [Acute upper respiratory infection, unspecified] Episodic Otitis media and related conditions (1 source) Finding of fluid behind tympanic membrane; Translations: [Unspecified nonsuppurative otitis media, bilateral] Episodic Unclassified (2 sources) History and physical examination, pre-employment ; Translations: [Encounter for pre-employment examination] Onset: 05-27-2017 05-27-2017 Past or Other Problems Problem Classification Problem Date Documented Da te Episodic/Chronic Joint disorders and dislocations; trauma-related (2 sources) Tear of meniscus of knee; Translations: [Unspecified tear of unspecified meniscus, current injury, right knee, initial encounter] Onset: 01-22-2014 Resolved: 01-31-2014 01-31-2014 Episodic Results Test Name Value Interpretation Reference Range Facility [facility] 07-22-2024 CNOV Office Visit (UCWSTR) ---- BRENDA ROCK ([id number]) 1995 F Date Time Provider Department 07/22/24 12:00 PM RAJANI THAYER [facility] During your visit today, we recorded the following information about you: Temperature Pulse Respiration Blood pressure 97.8 degrees 118/minute 16/minute 124/70 Weight 100.2 kg Rajani Thayer PA 07/22/2024 12:12 PM Signed This note was created using Canopiriter. Subjective Brenda Rock is a 29 year old female. HPI 29-year-old female presents for sore throat. Patient has had a sore throat for 1 day. She is 38 weeks . No cough, congestion, fevers. No vaginal bleeding or discharge. Normal movement. 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 No other complaint. PAST MEDICAL HISTORY Diagnosis Date Syncope Resolved PAST SURGICAL HISTORY Procedure Laterality Date ARTHROSCOPY KNEE DIAGNOSTIC W/WO SYNOVIAL BX SPX Arthroscopy, knee, ACL x2 Repair, miniscus [id number]/ 2022 ALLERGIES Patient has no known allergies. MEDICATIONS PNV no.95/ferrous fum/folic ac ( ORAL) Take by mouth. FAMILY HISTORY Problem Relation Age of Onset Lipids Mother High Cholesterol Breast Cancer Maternal Grandmother Coronary Artery Disease Maternal Grandfather By-pass other (High Cholesterol) Other Maternal side Hypertension Other Maternal AND Paternal sides Ovarian cancer No Family History Uterine Cancer No Family History Colon Cancer No Family History Social History Tobacco Use Smoking status: Never Smokeless tobacco: Never Vaping Use Vaping status: current everyday user Substances: Nicotine Devices: Ref3D Product Imagingble tank Substance Use Topics Alcohol use: No Drug use: No Review of Systems Constitutional: Negative for chills and fever. HENT: Positive for sore throat. Negative for congestion and ear pain. Respiratory: Negative for cough and shortness of breath. Cardiovascular: Negative for chest pain. Gastrointestinal: Negative for diarrhea and vomiting. Objective BP 124/70 Pulse 118 Temp 36.6 ?C (97.8 ?F) Resp 16 Wt 100.2 kg (220 lb 14.4 oz) LMP 10/01/2022 SpO2 98% BMI 37.92 kg/m? Physical Exam Vitals and nursing note reviewed. Constitutional: General: She is not in acute distress. Appearance: Normal appearance. She is not toxic-appearing. HENT: Right Ear: Tympanic membrane and ear canal normal. Left Ear: Tympanic membrane and ear canal normal. Nose: Nose normal. Mouth/Throat: Mouth: Mucous membranes are moist. Pharynx: Oropharynx is clear. Uvula midline. Posterior oropharyngeal erythema present. Tonsils: No tonsillar exudate. 1+ on the right. 1+ on the left. Eyes: Conjunctiva/sclera: Conjunctivae normal. Cardiovascular: Rate and Rhythm: Normal rate and regular rhythm. Pulmonary: Effort: Pulmonary effort is normal. Breath sounds: Normal breath sounds. Skin: General: Skin is warm and dry. Neurological: Mental Status: She is alert. Assessment and Plan ASSESSMENT/PLAN: 1. Sore throat - ICD9: 462, ICD10: J02.9 - suspect viral - Group A strep molecular testing negative - Discussed supportive care treatment with fluids, rest and analgesia. - The patient may also use warm salt water gargles, throat lozenges and/or OTC throat spray as needed. - STREP A MOLECULAR (POC) Diagnosis and treatment plan were discussed and questions were answered to the patient's satisfaction. Pt acknowledged understanding of concepts and follow up plan. Specific signs and symptoms that would indicate the need for higher level of care were discussed in detail warranting prompt ER evaluation. CONNOR Madden Allergies As of Date: 07/22/2024 (No Known Allergies) Date Reviewed: 07/22/2024 Reviewed by: Ronel Mathur MA - Fully Assessed Reason for Visit: Sore Throat [200] Cmt: x 1 day, 38 weeks Primary Visit Diagnosis:Sore throat [J02.9] Order(s):STREP A MOLECULAR (POC) [9324081] Order #: [id number]. #:[id number] Prescriptions as of 07/22/2024 - PNV no.95/ferrous fum/folic ac ( ORAL) Take by mouth. Problem List As Of Date 07/22/2024 Noted Resolved Tear of meniscus of right knee [S83.206A] 01/22/2014 01/31/2014 Obesity, Class I, BMI 30-34.9 [E66.811] 10/30/2022 Encounter Status:Closed by RAJANI THAYER on 07/22/24 Normal [facility] STREP A MOLECULAR (POC)on Procedural Control Valid [facility] Strep A (POCT) Negative Negative [facility] CNOVon 04-27-2024 CNOV Office Visit (UCWSTR) ---- BRENDA ROCK ([id number]) 1995 F Date Time Provider Department 04/27/24 4:45 PM GELY LOPEZ [facility] During your visit today, we recorded the following information about you: Temperature Pulse Respiration Blood pressure 97.9 degrees 75/minute 18/minute 101/70 Weight 91.8 kg Gely Lopez APRN.HAND II CUTTER 04/27/2024 5:30 PM Signed Subjective HPI Nontoxic 6-month female presents urgent care chief complaint left forearm burn. 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 Has been keeping the area covered. Did use peroxide and antibiotic cream today. Presents today concerned about possible cellulitis. States area of burn is slightly tender. Area around the burn is itchy. Overall feels well. No vaginal discharge or decreased movement. Denies any fever body aches chills productive cough chest pain shortness of breath pleuritic pain hemoptysis nausea vomiting abdominal pain change in bowel or bladder habits. Past medical history prescription medication use and allergies reviewed. .Patient presents with: Burn: L forearm x5 days, red and swollen, warm to touch PAST MEDICAL HISTORY Diagnosis Date Syncope Resolved PAST SURGICAL HISTORY Procedure Laterality Date ARTHROSCOPY KNEE DIAGNOSTIC W/WO SYNOVIAL BX SPX Arthroscopy, knee, ACL x2 Repair, miniscus [id number]/ 2022 ALLERGIES Patient has no known allergies. [...] Alcohol use: No Drug use: No BP 101/70 Pulse 75 Temp 36.6 ?C (97.9 ?F) Resp 18 Wt 91.8 kg (202 lb 6.1 oz) LMP 10/01/2022 SpO2 100% BMI 34.74 kg/m? Review of Systems Constitutional: Negative for chills, fever and malaise/fatigue. HENT: Negative for congestion, ear discharge, ear pain, sinus pain and sore throat. Eyes: Negative for blurred vision, pain, discharge and redness. Respiratory: Negative for cough, hemoptysis, sputum production, shortness of breath, wheezing and stridor. Cardiovascular: Negative for chest pain. Gastrointestinal: Negative for abdominal pain, diarrhea, nausea and vomiting. Musculoskeletal: Negative for myalgias. Skin: Positive for itching. Negative for rash. Wound left arm Neurological: Negative for dizziness and headaches. Objective Physical Exam Constitutional: General: She is not in acute distress. Appearance: She is not toxic-appearing. HENT: Head: Normocephalic. Nose: Nose normal. Eyes: Pupils: Pupils are equal, round, and reactive to light. Cardiovascular: Rate and Rhythm: Normal rate. Pulmonary: Effort: Pulmonary effort is normal. No respiratory distress. Musculoskeletal: Cervical back: Normal range of motion. Skin: General: Skin is warm and dry. Comments: A approximately 2 cm x 1 cm partial-thickness burn noted highlighted area. Approximately 6 cm by [address] around wound noted. No remote redness. No drainage. Neurological: General: No focal deficit present. Mental Status: She is alert. ASSESSMENT/PLAN: 1. Partial thickness burn of left forearm, initial encounter - ICD9: 943.21, ICD10: T22.212A Diagnosed with partial-thickness burn. Area of redness around the burn is suspicious for dermatitis due to bandage. Area is well-demarcated. Will use hydrocortisone cream on this area. If redness worsens or becomes painful will start Keflex and follow-up for wound reevaluation. Patient was educated on supportive therapies. Patient [...] of care. This note was generated using Bownty software. It may contain errors in wording, punctuation, or spelling. Gely Lopez APRN.HAND II CUTTER Allergies As of Date: 04/27/2024 (No Known Allergies) Date Reviewed: 04/27/2024 Reviewed by: Gely Lopez APRN.HAND II CUTTER - Fully Assessed Reason for Visit: Burn [1748] Cmt: L forearm x5 days, red and swollen, warm to touc (more content not included)... Normal [facility] STREP A MOLECULAR (POC)on Procedural Control Valid [facility] Strep A (POCT) Positive Abnormal Negative [facility] Office Visit: Work physicalo n 08-17-2017 Documentation of current medications (procedure) Done Invalid Interpretation Code [facility] Work Phone: Tobacco smoking status NHIS Never Invalid Interpretation Code [facility] Work Phone: Tobacco use CPHS Never smoker Invalid Interpretation Code [facility] Work Phone: Vital Signs Date Time Vital Sign Value Performing Clinician Facility 07-22-2024 12:01-0400 Body mass index (BMI) [Ratio] 37.92 kg/m2 Krislyn Aberegg PA Work Phone: [facility] 07-22-2024 12:01-0400 Body temperature 97.81 [degF] Krislyn Aberegg PA Work Phone: [facility] 07-22-2024 12:01-0400 Body weight 100.2 kg Krislyn Aberegg PA Work Phone: [facility] 07-22-2024 12:01-0400 Diastolic blood pressure 70 mm[Hg] Krislyn Aberegg PA Work Phone: [facility] 07-22-2024 12:01-0400 Heart rate 118 /min Krislyn Aberegg PA Work Phone: [facility] 07-22-2024 12:01-0400 Respiratory rate 16 /min Krislyn Aberegg PA Work Phone: [facility] 07-22-2024 12:01-0400 SaO2% (BldA) [Mass fraction] 98 % Krislyn Aberegg PA Work Phone: [facility] 07-22-2024 12:01-0400 Systolic blood pressure 124 mm[Hg] Krislyn Aberegg PA Work Phone: [facility] 04-27-2024 16:48-0400 Body mass index (BMI) [Ratio] 34.74 kg/m2 Gely Lopez APRN.HAND II CUTTER Work Phone: [facility] 04-27-2024 16:48-0400 Body temperature 97.9 [degF] Gely Lopez APRN.HAND II CUTTER Work Phone: [facility] 04-27-2024 16:48-0400 Body weight 91.8 kg Gely Pendlebury PLASMA PROCESSOR.HAND II CUTTER Work Phone: [facility] 04-27-2024 16:48-0400 Diastolic blood pressure 70 mm[Hg] Gely Pendlebury PLASMA PROCESSOR.HAND II CUTTER Work Phone: [facility] 04-27-2024 16:48-0400 Heart rate 75 /min Gely Pendlebury PLASMA PROCESSOR.HAND II CUTTER Work Phone: [facility] 04-27-2024 16:48-0400 Respiratory rate 18 /min Gely Pendlebury PLASMA PROCESSOR.HAND II CUTTER Work Phone: [facility] 04-27-2024 16:48-0400 SaO2% (BldA) [Mass fraction] 100 % [facility] PLAS[facility] PROCESSOR.HAND II CUTTER Work Phone: [facility] 04-27-2024 16:48-0400 Systolic blood pressure 101 mm[Hg] Gely Pendlebury PLASMA PROCESSOR.HAND II CUTTER Work Phone: [facility] 07-04-2023 14:52-0400 Body temperature 97.11 [degF] [facility] PLASMA PROCESSOR.HAND II CUTTER Work Phone: [facility] 07-04-2023 14:52-0400 Body weight 83.01 kg [facility] PLASMA PROCESSOR.HAND II CUTTER Work Phone: [facility] 07-04-2023 14:52-0400 Diastolic blood pressure 75 mm[Hg] Gely Pendlebury PLASMA PROCESSOR.HAND II CUTTER Work Phone: [facility] 07-04-2023 14:52-0400 Heart rate 94 /min Gely Pendlebury PLASMA PROCESSOR.HAND II CUTTER Work Phone: [facility] 07-04-2023 14:52-0400 Respiratory rate 18 /min Gely Pendlebury PLASMA PROCESSOR.HAND II CUTTER Work Phone: [facility] 07-04-2023 14:52-0400 SaO2% (BldA) [Mass fraction] 99 % Gely Pendlebury PLASMA PROCESSOR.HAND II CUTTER Work Phone: [facility] 07-04-2023 14:52-0400 Systolic blood pressure 121 mm[Hg] Gely Beattybury PLASMA PROCESSOR.HAND II CUTTER Work Phone: [facility] 10-30-2022 14:56-0500 Body height 162.6 cm Roxann Syeth PLASMA PROCESSOR.HAND II CUTTER Work Phone: [facility] 10-30-2022 14:56-0500 Body weight 79.38 kg Roxann Syeth PLASMA PROCESSOR.HAND II CUTTER Work Phone: [facility] 10-30-2022 14:56-0500 Diastolic blood pressure 69 mm[Hg] Roxann Ericka PLASMA PROCESSOR.HAND II CUTTER Work Phone: [facility] 10-30-2022 14:56-0500 Heart rate 78 /min Roxann Ericka PLASMA PROCESSOR.HAND II CUTTER Work Phone: [facility] 10-30-2022 14:56-0500 Systolic blood pressure 107 mm[Hg] Roxann Ericka PLASMA PROCESSOR.HAND II CUTTER Work Phone: [facility] 07-07-2022 16:56-0400 Body temperature 97.7 [degF] Deisy Dan PLASMA PROCESSOR.HAND II CUTTER Work Phone: [facility] 07-07-2022 16:56-0400 Body weight 80.47 kg Deisy Dan PLASMA PROCESSOR.HAND II CUTTER Work Phone: [facility] 07-07-2022 16:56-0400 Diastolic blood pressure 54 mm[Hg] Deisy Dan PLASMA PROCESSOR.HAND II CUTTER Work Phone: [facility] 07-07-2022 16:56-0400 Heart rate 75 /min Deisy Dan PLASMA PROCESSOR.HAND II CUTTER Work Phone: [facility] 07-07-2022 16:56-0400 Respiratory rate 20 /min Deisy Dan PLASMA PROCESSOR.HAND II CUTTER Work Phone: [facility] 07-07-2022 16:56-0400 SaO2% (BldA) [Mass fraction] 100 % Deisy Dan PLASMA PROCESSOR.HAND II CUTTER Work Phone: [facility] 07-07-2022 16:56-0400 Systolic blood pressure 121 mm[Hg] Deisy Dan APRN.HAND II CUTTER Work Phone: [facility] 05-27-2017 13:27-0400 BMI (Body Mass Index) 26.43 kg/m2 Corinna Goetz LPN [facility] Work Phone: 05-27-2017 13:27-0400 Body Temperature 98.1 [degF] Corinna Goetz LPN [facility] Work Phone: 05-27-2017 13:27-0400 BP Diastolic 74 mm[Hg] Corinna Goetz LPN [facility] Work Phone: 05-27-2017 13:27-0400 BP Systolic 102 mm[Hg] Corinna Goetz LPN [facility] Work Phone: 05-27-2017 13:27-0400 Height 162.56 cm Corinna Goetz LPN [facility] Work Phone: 05-27-2017 13:27-0400 Pulse (Heart Rate) 81 /min Corinna Goetz LPN [facility] Work Phone: 05-27-2017 13:27-0400 Respiratory Rate 14 /min Corinna Goetz LPN [facility] Work Phone: 05-27-2017 13:27-0400 Weight 69.85 kg Corinna Goetz LPN [facility] Work Phone: Encounters Encounter Date Encounter Type Care Provider Facility Start: 07-22-2024 End: 07-22-2024 ambulatory STEVE MORRISON Facility:[facility] Start: 07-22-2024 End: 07-22-2024 Patient encounter procedure Rajani Thayer PA Work Phone: [facility] Comment on above: Sore throat (Primary Dx) Start: 04-27-2024 End: 04-27-2024 ambulatory STEVE MORRISON Facility:[facility] Start: 04-27-2024 End: 04-27-2024 Office outpatient visit 15 minutes Gely Lopez PLASMA PROCESSOR.HAND II CUTTER Work Phone: [employer] [facility] Comment on above: Partial thickness bu rn of left forearm, initial encounter (Primary Dx) Start: 03-16-2024 End: 03-16-2024 ambulatory IRAJ Gates WILLIEFRANNIE [facility] Start: 07-04-2023 End: 07-04-2023 Office outpatient visit 25 minutes Gely Lopez APRN.HAND II CUTTER Work Phone: [facility] [employer] [facility] Comment on above: Sore throat (Primary Dx); Strep throat Start: 10-30-2022 End: 10-30-2022 Patient encounter procedure Roxann Syelio ALCOCER.HAND II CUTTER Work Phone: [facility] Comment on above: Encounter for gyneco logical examination (general) (routine) without abnormal findings (Primary Dx); Encounter for screening for malignant neoplasm of cervix; Obesity, Class I, BMI 30-34.9 Start: 10-30-2022 End: 10-30-2022 Patient encounter status Roxann Barnett PLASMA PROCESSOR.HAND II CUTTER Work Phone: [facility] Start: 07-07-2022 End: 07-07-2022 Patient encounter procedure Deisy Dan PLASMA PROCESSOR.HAND II CUTTER Work Phone: [facility] Comment on above: Fluid level behind t ympanic membrane of both ears (Primary Dx); Upper respiratory tract infection, unspecified type Procedures Date Procedure Procedure Detail Performing Clinician Start: 07-22-2024 STREP A MOLECULAR (POC) Jeremiah Chowdhury MD Work Phone: Start: 07-04-2023 STREP A MOLECULAR (POC) Lupe West PA-C Work Phone: Start: 05-27-2017 End: 05-27-2017 Pre-employment PE Ricardo RYAN Work Phone: Plan of Treatment Date Care Activity Detail Author Start: 04-27-2034 Urine microalbumin profile DTaP,Tdap,Td Vaccine (4 - Td or Tdap) [facility] Start: 10-30-2025 Pap Testing Pap Testing [facility] Start: 10-30-2025 Screening for malign ant neoplasm of cervix Cervical Cancer Screening [facility] Start: 06-11-2024 Covid-19 Vaccine ( season) Covid-19 Vaccine ( season) [facility] Start: 06-11-2024 Influenza vaccination Influenza Vacc ine (#1) [facility] Start: 06-11-2024 RSV Vaccine (1 - Ris k 1-dose series) RSV Vaccine (1 - Risk 1-dose series) [facility] Start: 10-11-2023 Behavioral Health Screening Behavioral Health Screening [facility] Start: 06-11-2023 Covid-19 Vaccine () Covid-19 Vaccine () [facility] Start: 06-11-2023 Influenza vaccination Influenza Vacc ine (#1) [facility] Start: 10-11-2022 DEPRESSION ASSESSMENT DEPRESSION ASS ESSMENT [facility] Start: 06-11-2022 Influenza vaccination INFLUENZA (#1) [facility] Start: 10-11-2021 [facility] Start: 11-26-2020 PAP TESTING PAP TESTING [facility] Start: 04-23-2018 Urine microalbumin profile [facility] Start: 05-27-2017 End: 05-27-2017 Appointment Appointment [facility] Work Phone: Start: 2014 Anxiety Screening Anxiety Screening [facility] Start: 2014 Depression Screening Depression Scre ening [facility] Start: 2014 HEPATITIS C SCREENING HEPATITIS C [facility] Start: 2014 Hepatitis C screening Hepatitis C [facility] Start: 2014 HIV SCREENING HIV SCREENING [facility] Start: 2014 HIV screening HIV Screening [facility] Start: 03-15-2014 HPV VACCINE (3 - 3-d ose series) HPV VACCINE (3 - 3-dose series) [facility] Start: 2010 PEDS TO ADULT TRANSITION ANNUAL ASSESSMENT PEDS TO ADULT TRANSITION ANNUAL ASSESSMENT [facility] Start: 2008 PEDS TO ADULT TRANSITION INITIAL DISCUSSION PEDS TO ADULT TRANSITION INITIAL DISCUSSION [facility] Start: 1996 COVID-19 VACCINE (#1) COVID-19 VACCI NE (#1) [facility] PAP FLUID CERVICAL SCREENING PAP FLUID CERVICAL SCREENING Lab Routine Encounter for gynecological examination (general) (routine) without abnormal findings Ordered: 10/30/2022 [facility] Work Phone: Comment on above: Ordered: 10/30/2022 [facility] Work Phone: Immunizations Immunization Date Immunization Notes Care Provider Sivan rodriguez 04-27-2024 tetanus toxoid, reduced diphtheria toxoid, and acellular pertussis vaccine, adsorbed Gely Lopez PLASMA PROCESSOR.[facility] Work Phone: [facility] 11-15-2013 human papilloma viru s vaccine, quadrivalent Deisy Dan PLASMA PROCESSOR.[facility] Work Phone: [facility] Work Phone: 11-14-2012 human papilloma viru s vaccine, quadrivalent Deisy Dan PLASMA PROCESSOR.[facility] Work Phone: [facility] 11-14-2012 Meningococcal, MCV4, unspecified conjugate formulation(groups A, C, Y and W-135) Deisy Dan PLASMA PROCESSOR.[facility] Work Phone: [facility] 04-15-2009 Meningococcal, MCV4, unspecified conjugate formulation(groups A, C, Y and W-135) Deisy Dan PLASMA PROCESSOR.[facility] Work Phone: [facility] Work Phone: 04-23-2008 tetanus toxoid, reduced diphtheria toxoid, and acellular pertussis vaccine, adsorbed Deisy Dan PLASMA PROCESSOR.HAND II CUTTER Work Phone: [facility] Work Phone: 05-20-2001 diphtheria, tetanus toxoids and acellular pertussis vaccine Deisy Dan PLASMA PROCESSOR.HAND II CUTTER Work Phone: [facility] Work Phone: 05-20-2001 measles, mumps and rubella virus vaccine Deisy Dan PLASMA PROCESSOR.[facility] Work Phone: [facility] Work Phone: 05-20-2001 poliovirus vaccine, inactivated Deisy Dan APRN.HAND II CUTTER Work Phone: [facility] Work Phone: 07-11-1999 Chicken Pox (disease) Jesusita Dan APRN.HAND II CUTTER Work Phone: [facility] Work Phone: 07-28-1997 DTP-Haemophilus influenzae type b conjugate vaccine Gely Lopez APRN.HAND II CUTTER Work Phone: [facility] Work Phone: 07-28-1997 Tetramune Deisy Dan APRN.[facility] Work Phone: [facility] Work Phone: 05-17-1997 measles, mumps and rubella virus vaccine Deisy Dan APRN.[facility] Work Phone: [facility] Work Phone: 02-07-1997 hepatitis B vaccine, pediatric or pediatric/adolescent dosage Deisy Dan APRN.HAND II CUTTER Work Phone: [facility] Work Phone: 1996 DTP-Haemophilus influenzae type b conjugate vaccine Gely Lopez APRN.[facility] Work Phone: [facility] Work Phone: 1996 Tetramune Deisy Dan APRN.[facility] Work Phone: [facility] Work Phone: 1996 trivalent poliovirus vaccine, live, oral Deisy Dan APRN.HAND II CUTTER Work Phone: [facility] Work Phone: 1996 DTP-Haemophilus influenzae type b conjugate vaccine Gely Lopez APRN.HAND II CUTTER Work Phone: [facility] Work Phone: 1996 Tetramune Deisy Dan APRN.HAND II CUTTER Work Phone: [facility] Work Phone: 1996 trivalent poliovirus vaccine, live, oral Deisy Dan PLASMA PROCESSOR.HAND II CUTTER Work Phone: [facility] Work Phone: 1996 DTP-Haemophilus influenzae type b conjugate vaccine Gely Beattycarmelina PLASMA PROCESSOR.HAND II CUTTER Work Phone: [facility] Work Phone: 1996 hepatitis B vaccine, pediatric or pediatric/adolescent dosage Deisy Dan PLASMA PROCESSOR.HAND II CUTTER Work Phone: [facility] Work Phone: 1996 Tetramune Deisy Dan PLASMA PROCESSOR.HAND II CUTTER Work Phone: [facility] Work Phone: 1996 trivalent poliovirus vaccine, live, oral Deisy Dan PLASMA PROCESSOR.HAND II CUTTER Work Phone: [facility] Work Phone: 1996 hepatitis B vaccine, pediatric or pediatric/adolescent dosage Deisy Dan PLASMA PROCESSOR.HAND II CUTTER Work Phone: [facility] Work Phone: Payers Date Payer Category Payer Unknown [id number] 2020 Unknown [id number] 1996 Unknown [id number] Social History Date Type Detail Facility Start: 01-22-2014 Tobacco smoking stat [facility] Never smoked tobacco [facility] Work Phone: Start: 01-22-2014 Tobacco use and exposure Smokeless tobacco non-user [facility] Work Phone: Start: 07-07-2022 End: 07-22-2024 Alcohol intake Current non-drinker of alcohol (finding) [facility] Start: 1995 Sex Assigned At Female [facility] Start: 06-27-2022 End: 07-07-2022 Exposure to SARS-CoV-2 (event) Not sure [facility] Start: 10-30-2022 End: 07-04-2023 History of Social function [facility] Start: 10-30-2022 End: 07-04-2023 Tobacco use panel [facility] National Score (1-10 0), lower number is lower risk 53 [facility] Start: 09-26-2021 Gender identity Identifies as female gender (finding) [facility] Start: 09-26-2021 Sexual orientation Heterosexual (maki torres) [facility] Start: 11-09-2023 [facility] Clinical Notes 01-22-2014 to 07-22-2024 Rajani Thayer PA - 07/22/2024 12:05 PM SANATPGely chavira APRN.HAND II CUTTER - 04/27/2024 4:50 PM EDTPGely chavira APRN.HAND II CUTTER - 07/04/2023 2:59 PM EDTPatient InstructionsPatient Instructions Note Date & Type Note Facility 07-22-2024 Note HNO ID: [id number] Author: RAJANI THAYER PA Service: ? Author Type: Physician Asset Protection Associate Type: Progress Notes Filed: 07/22/2024 12:12 Note Text: This note was created using NoteWriter. Subjective Brenda Rock is a 29 year old female. HPI 29-year-old female presents for sore throat. Patient has had a sore throat for 1 day. She is 38 weeks . No cough, congestion, fevers. No vaginal bleeding or discharge. Normal movement. 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 No other complaint. PAST MEDICAL HISTORY Diagnosis Date Syncope Resolved PAST SURGICAL HISTORY Procedure Laterality Date ARTHROSCOPY KNEE DIAGNOSTIC W/WO SYNOVIAL BX SPX Arthroscopy, knee, ACL x2 Repair, miniscus [id number]/ 2022 ALLERGIES Patient has no known allergies. MEDICATIONS PNV no.95/ferrous fum/folic ac ( ORAL) Take by mouth. FAMILY HISTORY Problem Relation Age of Onset Lipids Mother High Cholesterol Breast Cancer Maternal Grandmother Coronary Artery Disease Maternal Grandfather By-pass other (High Cholesterol) Other Maternal side Hypertension Other Maternal AND Paternal sides Ovarian cancer No Family History Uterine Cancer No Family History Colon Cancer No Family History Social History Tobacco Use Smoking status: Never Smokeless tobacco: Never Vaping Use Vaping status: current everyday user Substances: Nicotine Devices: Refillable tank Substance Use Topics Alcohol use: No Drug use: No Review of Systems Constitutional: Negative for chills and fever. HENT: Positive for sore throat. Negative for congestion and ear pain. Respiratory: Negative for cough and shortness of breath. Cardiovascular: Negative for chest pain. Gastrointestinal: Negative for diarrhea and vomiting. Objective BP 124/70 Pulse 118 Temp 36.6 ?C (97.8 ?F) Resp 16 Wt 100.2 kg (220 lb 14.4 oz) LMP 10/01/2022 SpO2 98% BMI 37.92 kg/m? Physical Exam Vitals and nursing note reviewed. Constitutional: General: She is not in acute distress. Appearance: Normal appearance. She is not toxic-appearing. HENT: Right Ear: Tympanic membrane and ear canal normal. Left Ear: Tympanic membrane and ear canal normal. Nose: Nose normal. Mouth/Throat: Mouth: Mucous membranes are moist. Pharynx: Oropharynx is clear. Uvula midline. Posterior oropharyngeal erythema present. Tonsils: No tonsillar exudate. 1+ on the right. 1+ on the left. Eyes: Conjunctiva/sclera: Conjunctivae normal. Cardiovascular: Rate and Rhythm: Normal rate and regular rhythm. Pulmonary: Effort: Pulmonary effort is normal. Breath sounds: Normal breath sounds. Skin: General: Skin is warm and dry. Neurological: Mental Status: She is alert. Assessment and Plan ASSESSMENT/PLAN: 1. Sore throat - ICD9: 462, ICD10: J02.9 - suspect viral - Group A strep molecular testing negative - Discussed supportive care treatment with fluids, rest and analgesia. - The patient may also use warm salt water gargles, throat lozenges and/or OTC throat spray as needed. - STREP A MOLECULAR (POC) Diagnosis and treatment plan were discussed and questions were answered to the patient's satisfaction. Pt acknowledged understanding of concepts and follow up plan. Specific signs and symptoms that would indicate the need for higher level of care were discussed in detail warranting prompt ER evaluation. CONNOR Madden [facility] 07-22-2024 History of Presen t illness Narrative This note was created using NoteWriter. Subjective Brenda Rock is a 29 year old female. HPI 29-year-old female presents for sore throat. Patient has had a sore throat for 1 day. She is 38 weeks . No cough, congestion, fevers. No vaginal bleeding or discharge. Normal movement. 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 No other complaint. PAST MEDICAL HISTORY Diagnosis Date Syncope Resolved PAST SURGICAL HISTORY Procedure Laterality Date ARTHROSCOPY KNEE DIAGNOSTIC W/WO SYNOVIAL BX SPX Arthroscopy, knee, ACL x2 Repair, miniscus [id number]/ 2022 ALLERGIES Patient has no known allergies. MEDICATIONS PNV no.95/ferrous fum/folic ac ( ORAL) Take by mouth. FAMILY HISTORY Problem Relation Age of Onset Lipids Mother High Cholesterol Breast Cancer Maternal Grandmother Coronary Artery Disease Maternal Grandfather By-pass other (High Cholesterol) Other Maternal side Hypertension Other Maternal & Paternal sides Ovarian cancer No Family History Uterine Cancer No Family History Colon Cancer No Family History Social History Tobacco Use Smoking status: Never Smokeless tobacco: Never Vaping Use Vaping status: current everyday user Substances: Nicotine Devices: TableGrabber tank Substance Use Topics Alcohol use: No Drug use: No Review of Systems Constitutional: Negative for chills and fever. HENT: Positive for sore throat. Negative for congestion and ear pain. Respiratory: Negative for cough and shortness of breath. Cardiovascular: Negative for chest pain. Gastrointestinal: Negative for diarrhea and vomiting. Objective BP 124/70 Pulse 118 Temp 36.6 C (97.8 F) Resp 16 Wt 100.2 kg (220 lb 14.4 oz) LMP 10/01/2022 SpO2 98% BMI 37.92 kg/m Physical Exam Vitals and nursing note reviewed. Constitutional: General: She is not in acute distress. Appearance: Normal appearance. She is not toxic-appearing. HENT: Right Ear: Tympanic membrane and ear canal normal. Left Ear: Tympanic membrane and ear canal normal. Nose: Nose normal. Mouth/Throat: Mouth: Mucous membranes are moist. Pharynx: Oropharynx is clear. Uvula midline. Posterior oropharyngeal erythema present. Tonsils: No tonsillar exudate. 1+ on the right. 1+ on the left. Eyes: Conjunctiva/sclera: Conjunctivae normal. Cardiovascular: Rate and Rhythm: Normal rate and regular rhythm. Pulmonary: Effort: Pulmonary effort is normal. Breath sounds: Normal breath sounds. Skin: General: Skin is warm and dry. Neurological: Mental Status: She is alert. Assessment and Plan ASSESSMENT/PLAN: 1. Sore throat - ICD9: 462, ICD10: J02.9 - suspect viral - Group A strep molecular testing negative - Discussed supportive care treatment with fluids, rest and analgesia. - The patient may also use warm salt water gargles, throat lozenges and/or OTC throat spray as needed. - STREP A MOLECULAR (POC) Diagnosis and treatment plan were discussed and questions were answered to the patient's satisfaction. Pt acknowledged understanding of concepts and follow up plan. Specific signs and symptoms that would indicate the need for higher level of care were discussed in detail warranting prompt ER evaluation. CONNOR Madden documented in this encounter [facility] 04-27-2024 Note HNO ID: [id number] Author: GELY LOPEZ APRN.HAND II CUTTER Service: ? Author Type: Nurse Practitioner Type: Progress Notes Filed: 04/27/2024 17:30 Note Text: Subjective HPI Nontoxic 6-month female presents urgent care chief complaint left forearm burn. 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 Has been keeping the area covered. Did use peroxide and antibiotic cream today. Presents today concerned about possible cellulitis. States area of burn is slightly tender. Area around the burn is itchy. Overall feels well. No vaginal discharge or decreased movement. Denies any fever body aches chills productive cough chest pain shortness of breath pleuritic pain hemoptysis nausea vomiting abdominal pain change in bowel or bladder habits. Past medical history prescription medication use and allergies reviewed. .Patient presents with: Burn: L forearm x5 days, red and swollen, warm to touch PAST MEDICAL HISTORY Diagnosis Date Syncope Resolved PAST SURGICAL HISTORY Procedure Laterality Date ARTHROSCOPY KNEE DIAGNOSTIC W/WO SYNOVIAL BX SPX Arthroscopy, knee, ACL x2 Repair, miniscus [id number]/ 2022 ALLERGIES Patient has no known allergies. [...] Alcohol use: No Drug use: No BP 101/70 Pulse 75 Temp 36.6 ?C (97.9 ?F) Resp 18 Wt 91.8 kg (202 lb 6.1 oz) LMP 10/01/2022 SpO2 100% BMI 34.74 kg/m? Review of Systems Constitutional: Negative for chills, fever and malaise/fatigue. HENT: Negative for congestion, ear discharge, ear pain, sinus pain and sore throat. Eyes: Negative for blurred vision, pain, discharge and redness. Respiratory: Negative for cough, hemoptysis, sputum production, shortness of breath, wheezing and stridor. Cardiovascular: Negative for chest pain. Gastrointestinal: Negative for abdominal pain, diarrhea, nausea and vomiting. Musculoskeletal: Negative for myalgias. Skin: Positive for itching. Negative for rash. Wound left arm Neurological: Negative for dizziness and headaches. Objective Physical Exam Constitutional: General: She is not in acute distress. Appearance: She is not toxic-appearing. HENT: Head: Normocephalic. Nose: Nose normal. Eyes: Pupils: Pupils are equal, round, and reactive to light. Cardiovascular: Rate and Rhythm: Normal rate. Pulmonary: Effort: Pulmonary effort is normal. No respiratory distress. Musculoskeletal: Cervical back: Normal range of motion. Skin: General: Skin is warm and dry. Comments: A approximately 2 cm x 1 cm partial-thickness burn noted highlighted area. Approximately 6 cm by [address] around wound noted. No remote redness. No drainage. Neurological: General: No focal deficit present. Mental Status: She is alert. ASSESSMENT/PLAN: 1. Partial thickness burn of left forearm, initial encounter - ICD9: 943.21, ICD10: T22.212A Diagnosed with partial-thickness burn. Area of redness around the burn is suspicious for dermatitis due to bandage. Area is well-demarcated. Will use hydrocortisone cream on this area. If redness worsens or becomes painful will start Keflex and follow-up for wound reevaluation. Patient was educated on supportive therapies. Patient [...] of care. This note was generated using Bownty software. It may contain errors in wording, punctuation, or spelling. Gely Lopez APRN.[facility] 04-27-2024 History of Presen t illness Narrative Subjective HPI Nontoxic 6-month female presents urgent care chief complaint left forearm burn. 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 Has been keeping the area covered. Did use peroxide and antibiotic cream today. Presents today concerned about possible cellulitis. States area of burn is slightly tender. Area around the burn is itchy. Overall feels well. No vaginal discharge or decreased movement. Denies any fever body aches chills productive cough chest pain shortness of breath pleuritic pain hemoptysis nausea vomiting abdominal pain change in bowel or bladder habits. Past medical history prescription medication use and allergies reviewed. .Patient presents with: Burn: L forearm x5 days, red and swollen, warm to touch PAST MEDICAL HISTORY Diagnosis Date Syncope Resolved PAST SURGICAL HISTORY Procedure Laterality Date ARTHROSCOPY KNEE DIAGNOSTIC W/WO SYNOVIAL BX SPX Arthroscopy, knee, ACL x2 Repair, miniscus [id number]/ 2022 ALLERGIES Patient has no known allergies. [...] Alcohol use: No Drug use: No BP 101/70 Pulse 75 Temp 36.6 C (97.9 F) Resp 18 Wt 91.8 kg (202 lb 6.1 oz) LMP 10/01/2022 SpO2 100% BMI 34.74 kg/m Review of Systems Constitutional: Negative for chills, fever and malaise/fatigue. HENT: Negative for congestion, ear discharge, ear pain, sinus pain and sore throat. Eyes: Negative for blurred vision, pain, discharge and redness. Respiratory: Negative for cough, hemoptysis, sputum production, shortness of breath, wheezing and stridor. Cardiovascular: Negative for chest pain. Gastrointestinal: Negative for abdominal pain, diarrhea, nausea and vomiting. Musculoskeletal: Negative for myalgias. Skin: Positive for itching. Negative for rash. Wound left arm Neurological: Negative for dizziness and headaches. Objective Physical Exam Constitutional: General: She is not in acute distress. Appearance: She is not toxic-appearing. HENT: Head: Normocephalic. Nose: Nose normal. Eyes: Pupils: Pupils are equal, round, and reactive to light. Cardiovascular: Rate and Rhythm: Normal rate. Pulmonary: Effort: Pulmonary effort is normal. No respiratory distress. Musculoskeletal: Cervical back: Normal range of motion. Skin: General: Skin is warm and dry. Comments: A approximately 2 cm x 1 cm partial-thickness burn noted highlighted area. Approximately 6 cm by [address] around wound noted. No remote redness. No drainage. Neurological: General: No focal deficit present. Mental Status: She is alert. ASSESSMENT/PLAN: 1. Partial thickness burn of left forearm, initial encounter - ICD9: 943.21, ICD10: T22.212A Diagnosed with partial-thickness burn. Area of redness around the burn is suspicious for dermatitis due to bandage. Area is well-demarcated. Will use hydrocortisone cream on this area. If redness worsens or becomes painful will start Keflex and follow-up for wound reevaluation. Patient was educated on supportive therapies. Patient [...] of care. This note was generated using Bownty software. It may contain errors in wording, punctuation, or spelling. Gely Lopez APRN.HAND II CUTTER documented in this encounter [facility] 07-04-2023 History of Presen t illness [...] SPX Arthroscopy, knee, ACL x2 Repair, miniscus [id number]/ 2022 ALLERGIES Patient has no known allergies. [...] swelling or pain on movement. Mouth/Throat: Lips: [place]. Mouth: Mucous membranes are moist. Pharynx: Oropharynx [...] of care. This note was generated using Bownty software. It may contain errors in wording, punctuation, or spelling. Gely Lopez APRN.HAND II CUTTER documented in this encounter [facility] 10-30-2022 Instructions Roxann Barnett APRN.RUFINA - 10/30/2022 3:05 PM EST What is [...] health screening schedule is recommended by the [employer] (ACOG). Some [...] also increase risk. documented in this encounter [facility] 10-30-2022 History of Presen t illness Narrative Brenda is a 27 year old who presents with the following complaints: New to [facility], establishing care for an annual gynecologic exam . 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 HAND II CUTTER Attending Note I have personally performed a face to face assessment of the patient and have reviewed the ELDER note. I performed a substantive portion of the visit including all aspects of the following. My encarnacion findings include: same Other additions or changes: As edited Signature: Roxann Barnett APRN.CNP Date: 10/30/2022 Time: 3:51 PM documented in this encounter [facility] 07-07-2022 Instructions Deisy Dan APRN.CNP - 07/07/2022 5:08 PM EDT ASSESSMENT/PLAN: 1. [...] help open respiratory and sinus passages. -Nasal [place] may offer relief of nasal and head [...] experience difficulty breathing documented in this encounter [facility] 07-07-2022 History of Presen t illness Narrative Brenda Curran 27 year old female presents to [facility] care with concerns of right ear pain. [facility] had real bad infection last year in the same ear. She did have URI recently. 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 this has been [...] care with fluids and rest Deisy Dan APRN.HAND II CUTTER - Drink lots of fluids - Make [...] help open respiratory and sinus passages. -Nasal [place] may offer relief of nasal and head [...] experience difficulty breathing documented in this encounter [facility] 09-29-2021 Note HNO ID: [id number] Author: Roc Pedraza MD Service: ? Author Type: Physician Type: Progress Notes Filed: 09/29/2021 8:37 AM Note Text: VIRTUAL VISIT PROGRESS NOTE This is a virtual visit using [place] video visit. It required patient-provider interaction for [...] which included preparing to see the patient, [id number] patient care, completing clinical documentation, counseling and educating the patient/family/caregiver and ordering medications, tests, or procedures Roc Pedraza MD [facility] 01-22-2014 History of Past i llness Narrative Problem Noted Date Resolved Date Tear of meniscus of right knee 01/22/2014 0 01/31/2014 documented as of this encounter (statuses as of 07/07/2022) [facility] History of Past illness Narrative* Problem Noted Date Resolved Date Tear of meniscus of right knee 01/22/2014 0 01/31/2014 documented as of this encounter (statuses as of 10/30/2022) [facility] History of Past illness Narrative* Problem Noted Date Diagnosed Date Resolved Date Tear of meniscus of right knee 01/22/2014 01/31/2014 documented as of this encounter (statuses as of 07/04/2023) [facility] note* Diagnosis Fluid level behind tympanic membrane of both ears- Primary Upper respiratory tract infection, unspecified type documented in this encounter [facility] note* Diagnosis Encounter for gynecological examination (general) (routine) without abnormal findings- Primary Encounter for screening for malignant neoplasm of cervix Screening for malignant neoplasm of the cervix Obesity, Class I, BMI 30-34.9 Obesity, unspecified documented in this encounter [facility] note* Diagnosis Sore throat- Primary Acute pharyngitis Strep throat Streptococcal sore throat documented in this encounter [facility] note* Diagnosis Partial thickness burn of left forearm, initial encounter- Primary [facility] Diagnosis Sore throat- Primary Acute pharyngitis documented in this encounter [facility] Summary Purpose Family History No Family History Records FoundNo Family History Records FoundNo Family History Records Found Advance Directives No Advanced Directives Records FoundNo Advanced Directives Records FoundNo Advanced Directives Records Found Additional Source Comments INFORMATION SOURCE (unrecogn ized section and content) DATE CREATED AUTHOR 09/29/2021 [facility] DATE CREATED AUTHOR AUTHOR'S ORGANIZ ATION 03/17/2024 [facility] DATE CREATED AUTHOR AUTHOR'S ORGANIZ ATION 07/24/2024 [facility] Source Comments (unrecognize d section and content) In the event this informatio n is protected by the Federal Confidentiality of Alcohol and Drug Abuse Patient Records regulations: The Federal rules restrict any use of the information to criminally investigate or prosecute any alcohol or drug abuse patient.[facility] the event this information is protected by the Federal Confidentiality of Alcohol and Drug Abuse Patient Records regulations: The Federal rules restrict any use of the information to criminally investigate or prosecute any alcohol or drug abuse patient.[facility] the event this information is protected by the Federal Confidentiality of Alcohol and Drug Abuse Patient Records regulations: The Federal rules restrict any use of the information to criminally investigate or prosecute any alcohol or drug abuse patient.[facility] the event this information is protected by the Federal Confidentiality of Alcohol and Drug Abuse Patient Records regulations: The Federal rules restrict any use of the information to criminally investigate or prosecute any alcohol or drug abuse patient.[facility] the event this information is protected by the Federal Confidentiality of Alcohol and Drug Abuse Patient Records regulations: The Federal rules restrict any use of the information to criminally investigate or prosecute any alcohol or drug abuse patient.[facility] Reason for Visit (unrecogniz ed section and content) Reason Comments Ear Infection Symptom pain in righ t ear for a couple of days Reason Comments Well Woman Reason Comments Sore Throat BARRERA, fever, chills x1 day Reason Comments Burn L forearm x5 days, r ed and swollen, warm to touch Reason Comments Sore Throat x 1 day, 38 weeks pr egnant Care Teams (unrecognized sec tion and content) Governor Assembler Hydraulic Relationship Specialty Start Date End Date Steve Morrison MD [address], [place] [address] PCP - General Family Medicine 06/30/21 Governor Assembler Hydraulic Relationship Specialty Start Date End Date Steve Morrison MD [address] [place], [place] [id number] PCP - General Family Medicine 06/30/21 [employer] Relationship Specialty Start Date End Date Steve Morrison MD [address], [place] [id number] PCP - General Family Medicine 06/30/21 [employer] Relationship Specialty Start Date End Date Steve Morrison MD [address] [place], [place] [id number] PCP - General Family Medicine 06/30/21 [employer] Relationship Specialty Start Date End Date Steve Morrison MD [address], [place] [id number] PCP - General Family Medicine 06/30/21 FOR [...] BE BASED ON THE PRIMARY CLINICAL RECORDS. [facility] [employer] [facility]. provides no warranty or guarantee of the accuracy or completeness of information in this document.
--- OUTSIDE RECORDS SUMMARY | 2024-08-01 10:18 | XMS RPT_ITS | CCD ---
Author Organization [facility] Care Team Providers Care Social Work Coordinator Name Role Phone Sofy HOOVERCorinna N Unavailable [phone] Corinna Goetz LPN N Unavailable [phone] Steve Morrison MD Primary Care Provider Steve [...] Comment on above: Take 1 capsule by [facility] twice daily for 10 days. cephalexin 500 [...] sources) Start: 05-27-2017 CONTROL CONTROL Corinna Goetz FISHERIES BIOLOGIST Ethinyl Estradiol / norgestimate (2 sources) Progestin, [...] tympanic membrane of both ears Use 1 [place] in each nostril once daily. 1 Each 0 07/07/2022 10/30/2022 Discontinued (Course of therapy completed) Comment on above: Use 1 [place] in each nostril once daily. Problems Active [...] Test Name Value Interpretation Reference Range Facility [facility] 07-22-2024 CNOV Office Visit (UCWSTR) ---- BRENDA ROCK ([id number]) 1995 F Date Time Provider Department 07/22/24 12:00 PM RAJANI THAYER [facility] [place] During your visit today, we recorded the following information about you: Temperature Pulse Respiration Blood pressure 97.8 degrees 118/minute 16/minute 124/70 Weight 100.2 kg Rajani Thayer PA 07/22/2024 12:12 PM Signed This note was created using [employer]. Subjective Brenda Rock is a 29 year [...] status: current everyday user Substances: Nicotine Devices: RefAkesoGenXble tank Substance Use Topics Alcohol use: No [...] Diagnosis:Sore throat [J02.9] Order(s):STREP A MOLECULAR (POC) [1772466] Order #: [id number]. #:[id number] Prescriptions as of 07/22/2024 - PNV no.95/ferrous fum/folic ac ( ORAL) Take by mouth. Problem List As Of Date 07/22/2024 Noted Resolved Tear of meniscus of right knee [S83.206A] 01/22/2014 01/31/2014 Obesity, Class I, BMI 30-34.9 [E66.811] 10/30/2022 Encounter Status:Closed by RAJANI THAYER on 07/22/24 Normal [facility] STREP A MOLECULAR (POC)on Procedural Control Valid [facility] Strep A (POCT) Negative Negative [facility] CNOVon 04-27-2024 CNOV Office Visit (UCWSTR) ---- BRENDA ROCK ([id number]) 1995 F Date Time Provider Department 04/27/24 4:45 PM GELY LOPEZ [facility] [place] During your visit today, we recorded the following information about you: Temperature Pulse Respiration Blood pressure 97.9 degrees 75/minute 18/minute 101/70 Weight 91.8 kg Gely Lopez APRN.[employer] 04/27/2024 5:30 PM Signed Subjective HPI Nontoxic 6-month female presents urgent care chief complaint left forearm burn. 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 Has been keeping the area covered. Did [...] SPX Arthroscopy, knee, ACL x2 Repair, miniscus [email or web address]/ 2022 ALLERGIES Patient has no known allergies. [...] of care. This note was generated using Shoulder Options software. It may contain errors in wording, punctuation, or spelling. Gely Lopez APRN.[employer] Allergies As of Date: 04/27/2024 (No Known Allergies) Date Reviewed: 04/27/2024 Reviewed by: Gely Lopez APRN.[employer] - Fully Assessed Reason for Visit: Burn [1748] Cmt: L forearm x5 days, red and swollen, warm to touc (more content not included)... Normal [facility] STREP A MOLECULAR (POC)on Procedural Control Valid [facility] Strep A (POCT) Positive Abnormal Negative [facility] Office Visit: Work physicalo n 08-17-2017 Documentation of current medications (procedure) Done Invalid Interpretation Code [facility] Work Phone: Tobacco smoking status NHIS Never Invalid Interpretation Code [facility] Work Phone: Tobacco use CPHS Never smoker Invalid Interpretation Code [facility] Work Phone: Vital Signs Date Time Vital Sign Value Performing Clinician Facility 07-22-2024 12:01-0400 Body mass index (BMI) [Ratio] 37.92 kg/m2 Krislyn Aberegg PA Work Phone: [facility] 07-22-2024 12:01-0400 Body temperature 97.81 [degF] Krislyn Aberegg PA Work Phone: [facility] 07-22-2024 12:01-0400 Body weight 100.2 kg Krislyn Aberegg PA Work Phone: [facility] 07-22-2024 12:01-0400 Diastolic blood pressure 70 mm[Hg] Krislyn Aberegg PA Work Phone: [facility] 07-22-2024 12:01-0400 Heart rate 118 /min Krislyn Aberegg PA Work Phone: [facility] 07-22-2024 12:01-0400 Respiratory rate 16 /min Krislyn Aberegg PA Work Phone: [facility] 07-22-2024 12:01-0400 SaO2% (BldA) [Mass fraction] 98 % Krislyn Aberegg PA Work Phone: [facility] 07-22-2024 12:01-0400 Systolic blood pressure 124 mm[Hg] Krislyn Aberegg PA Work Phone: [facility] 04-27-2024 16:48-0400 Body mass index (BMI) [Ratio] 34.74 kg/m2 Gely Lopez APRN.[employer] Work Phone: [facility] 04-27-2024 16:48-0400 Body temperature 97.9 [degF] Gely Lopez APRN.[employer] Work Phone: [facility] 04-27-2024 16:48-0400 Body weight 91.8 kg Gely Pendlebury PHLEBOTOMY TECH.[employer] Work Phone: [facility] 04-27-2024 16:48-0400 Diastolic blood pressure 70 mm[Hg] Gely Pendlebury PHLEBOTOMY TECH.[employer] Work Phone: [facility] 04-27-2024 16:48-0400 Heart rate 75 /min Gely Pendlebury PHLEBOTOMY TECH.[employer] Work Phone: [facility] 04-27-2024 16:48-0400 Respiratory rate 18 /min Gely Pendlebury PHLEBOTOMY TECH.[employer] Work Phone: [facility] 04-27-2024 16:48-0400 SaO2% (BldA) [Mass fraction] 100 % [facility] PHLEBOTOMY TECH.[employer] Work Phone: [facility] 04-27-2024 16:48-0400 Systolic blood pressure 101 mm[Hg] Gely Pendlebury PHLEBOTOMY TECH.[employer] Work Phone: [facility] 07-04-2023 14:52-0400 Body temperature 97.11 [degF] [facility] PHLEBOTOMY TECH.[employer] Work Phone: [facility] 07-04-2023 14:52-0400 Body weight 83.01 kg Gely [facility] PHLEBOTOMY TECH.[employer] Work Phone: [facility] 07-04-2023 14:52-0400 Diastolic blood pressure 75 mm[Hg] Gely Pendlebury PHLEBOTOMY TECH.[employer] Work Phone: [facility] 07-04-2023 14:52-0400 Heart rate 94 /min Gley Pendlebury PHLEBOTOMY TECH.[employer] Work Phone: [facility] 07-04-2023 14:52-0400 Respiratory rate 18 /min Gely Pendlebury PHLEBOTOMY TECH.[employer] Work Phone: [facility] 07-04-2023 14:52-0400 SaO2% (BldA) [Mass fraction] 99 % Gely Pendlebury PHLEBOTOMY TECH.[employer] Work Phone: [facility] 07-04-2023 14:52-0400 Systolic blood pressure 121 mm[Hg] Gely Beattybury PHLEBOTOMY TECH.[employer] Work Phone: [facility] 10-30-2022 14:56-0500 Body height 162.6 cm Roxann Syeth PHLEBOTOMY TECH.[employer] Work Phone: [facility] 10-30-2022 14:56-0500 Body weight 79.38 kg Roxann Syeth PHLEBOTOMY TECH.[employer] Work Phone: [facility] 10-30-2022 14:56-0500 Diastolic blood pressure 69 mm[Hg] Roxann Ericka PHLEBOTOMY TECH.[employer] Work Phone: [facility] 10-30-2022 14:56-0500 Heart rate 78 /min Roxann Ericka PHLEBOTOMY TECH.[employer] Work Phone: [facility] 10-30-2022 14:56-0500 Systolic blood pressure 107 mm[Hg] Roxann Ericka PHLEBOTOMY TECH.[employer] Work Phone: [facility] 07-07-2022 16:56-0400 Body temperature 97.7 [degF] Deisy Dan PHLEBOTOMY TECH.[employer] Work Phone: [facility] 07-07-2022 16:56-0400 Body weight 80.47 kg Deisy Dan PHLEBOTOMY TECH.[employer] Work Phone: [facility] 07-07-2022 16:56-0400 Diastolic blood pressure 54 mm[Hg] Deisy Dan PHLEBOTOMY TECH.[employer] Work Phone: [facility] 07-07-2022 16:56-0400 Heart rate 75 /min Deisy Dan PHLEBOTOMY TECH.[employer] Work Phone: [facility] 07-07-2022 16:56-0400 Respiratory rate 20 /min Deisy Dan PHLEBOTOMY TECH.[employer] Work Phone: [facility] 07-07-2022 16:56-0400 SaO2% (BldA) [Mass fraction] 100 % Deisy Dan PHLEBOTOMY TECH.[employer] Work Phone: [facility] 07-07-2022 16:56-0400 Systolic blood pressure 121 mm[Hg] Deisy Dan APRN.[employer] Work Phone: [facility] 05-27-2017 13:27-0400 BMI (Body Mass Index) 26.43 kg/m2 Corinna Goetz LPN [facility] Work Phone: 05-27-2017 13:27-0400 Body Temperature 98.1 [degF] Corinna Goetz LPN [facility] Work Phone: 05-27-2017 13:27-0400 BP Diastolic 74 mm[Hg] Corinna Goetz LPN [facility] Work Phone: 05-27-2017 13:27-0400 BP Systolic 102 mm[Hg] Corinna Goetz LPN [facility] Work Phone: 05-27-2017 13:27-0400 Height 162.56 cm Corinna Goetz LPN [facility] Work Phone: 05-27-2017 13:27-0400 Pulse (Heart Rate) 81 /min Corinna Goetz LPN [facility] Work Phone: 05-27-2017 13:27-0400 Respiratory Rate 14 /min Corinna Goetz LPN [facility] Work Phone: 05-27-2017 13:27-0400 Weight 69.85 kg Corinna Goetz LPN [facility] Work Phone: Encounters Encounter Date Encounter Type Care Provider Facility Start: 07-22-2024 End: 07-22-2024 ambulatory STEVE MORRISON Facility:[facility] Start: 07-22-2024 End: 07-22-2024 Patient encounter procedure Rajani Thayer PA Work Phone: [facility] Comment on above: Sore throat (Primary Dx) Start: 04-27-2024 End: 04-27-2024 ambulatory STEVE MORRISON Facility:[facility] Start: 04-27-2024 End: 04-27-2024 Office outpatient visit 15 minutes Gely Lopez PHLEBOTOMY TECH.[employer] Work Phone: [facility] Comment on above: Partial thickness bu rn of left forearm, initial encounter (Primary Dx) Start: 03-16-2024 End: 03-16-2024 ambulatory IRAJ Gates WILLIEFRANNIE [facility] Start: 07-04-2023 End: 07-04-2023 Office outpatient visit 25 minutes Gely Lopez APRN.[employer] Work Phone: [facility] Comment on above: Sore throat (Primary Dx); Strep throat Start: 10-30-2022 End: 10-30-2022 Patient encounter procedure Roxann Syelio ALCOCER.[employer] Work Phone: [facility] Comment on above: Encounter for gyneco logical examination (general) (routine) without abnormal findings (Primary Dx); Encounter for screening for malignant neoplasm of cervix; Obesity, Class I, BMI 30-34.9 Start: 10-30-2022 End: 10-30-2022 Patient encounter status Roxann Barnett PHLEBOTOMY TECH.[employer] Work Phone: [facility] Start: 07-07-2022 End: 07-07-2022 Patient encounter procedure Deisy Dan PHLEBOTOMY TECH.[employer] Work Phone: [facility] Comment on above: Fluid level behind t ympanic membrane of both ears (Primary Dx); Upper respiratory tract infection, unspecified type Procedures Date Procedure Procedure Detail Performing Clinician Start: 07-22-2024 STREP A MOLECULAR (POC) Jeremiah Chowdhury MD Work Phone: Start: 07-04-2023 STREP A MOLECULAR (POC) Lpue West PA-C Work Phone: Start: 05-27-2017 End: 05-27-2017 Pre-employment PE Ricardo RYAN Work Phone: Plan of Treatment Date Care Activity Detail Author Start: 04-27-2034 Urine microalbumin profile DTaP,Tdap,Td Vaccine (4 - Td or Tdap) [facility] Start: 10-30-2025 Pap Testing Pap Testing [facility] Start: 10-30-2025 Screening for malign ant neoplasm of cervix Cervical Cancer Screening [facility] Start: 06-11-2024 Covid-19 Vaccine ( season) Covid-19 Vaccine ( season) [facility] Start: 06-11-2024 Influenza vaccination Influenza Vacc ine (#1) [facility] Start: 06-11-2024 RSV Vaccine (1 - Ris k 1-dose series) RSV Vaccine (1 - Risk 1-dose series) [facility] Start: 10-11-2023 Behavioral Health Screening Behavioral Health Screening [facility] Start: 06-11-2023 Covid-19 Vaccine () Covid-19 Vaccine () [facility] Start: 06-11-2023 Influenza vaccination Influenza Vacc ine (#1) [facility] Start: 10-11-2022 DEPRESSION ASSESSMENT DEPRESSION ASS ESSMENT [facility] Start: 06-11-2022 Influenza vaccination INFLUENZA (#1) [facility] Start: 10-11-2021 [facility] Start: 11-26-2020 PAP TESTING PAP TESTING [facility] Start: 04-23-2018 Urine microalbumin profile [facility] Start: 05-27-2017 End: 05-27-2017 Appointment Appointment [facility] Work Phone: Start: 2014 Anxiety Screening Anxiety Screening [facility] Start: 2014 Depression Screening Depression Scre ening [facility] Start: 2014 HEPATITIS C SCREENING HEPATITIS C [facility] Start: 2014 Hepatitis C screening Hepatitis C [facility] Start: 2014 HIV SCREENING HIV SCREENING [facility] Start: 2014 HIV screening HIV Screening [facility] Start: 03-15-2014 HPV VACCINE (3 - 3-d ose series) HPV VACCINE (3 - 3-dose series) [facility] Start: 2010 PEDS TO ADULT TRANSITION ANNUAL ASSESSMENT PEDS TO ADULT TRANSITION ANNUAL ASSESSMENT [facility] Start: 2008 PEDS TO ADULT TRANSITION INITIAL DISCUSSION PEDS TO ADULT TRANSITION INITIAL DISCUSSION [facility] Start: 1996 COVID-19 VACCINE (#1) COVID-19 VACCI NE (#1) [facility] PAP FLUID CERVICAL SCREENING PAP FLUID CERVICAL SCREENING Lab Routine Encounter for gynecological examination (general) (routine) without abnormal findings Ordered: 10/30/2022 [facility] Work Phone: Comment on above: Ordered: 10/30/2022 [facility] Work Phone: Immunizations Immunization Date Immunization Notes Care Provider Sivan rodriguez 04-27-2024 tetanus toxoid, reduced diphtheria toxoid, and acellular pertussis vaccine, adsorbed Gely Lopez PHLEBOTOMY TECH.[facility] Work Phone: [facility] 11-15-2013 human papilloma viru s vaccine, quadrivalent Deisy Dan PHLEBOTOMY TECH.[facility] Work Phone: [facility] Work Phone: 11-14-2012 human papilloma viru s vaccine, quadrivalent Deisy Dan PHLEBOTOMY TECH.[facility] Work Phone: [facility] 11-14-2012 Meningococcal, MCV4, unspecified conjugate formulation(groups A, C, Y and W-135) Deisy Dan PHLEBOTOMY TECH.[facility] Work Phone: [facility] 04-15-2009 Meningococcal, MCV4, unspecified conjugate formulation(groups A, C, Y and W-135) Deisy Dan PHLEBOTOMY TECH.[facility] Work Phone: [facility] Work Phone: 04-23-2008 tetanus toxoid, reduced diphtheria toxoid, and acellular pertussis vaccine, adsorbed Deisy Dan PHLEBOTOMY TECH.[employer] Work Phone: [facility] Work Phone: 05-20-2001 diphtheria, tetanus toxoids and acellular pertussis vaccine Deisy Dan PHLEBOTOMY TECH.[employer] Work Phone: [facility] Work Phone: 05-20-2001 measles, mumps and rubella virus vaccine Deisy Dan PHLEBOTOMY TECH.[facility] Work Phone: [facility] Work Phone: 05-20-2001 poliovirus vaccine, inactivated Deisy Dan APRN.[employer] Work Phone: [facility] Work Phone: 07-11-1999 Chicken Pox (disease) Jesusita Dan APRN.[employer] Work Phone: [facility] Work Phone: 07-28-1997 DTP-Haemophilus influenzae type b conjugate vaccine Gely Lopez APRN.[employer] Work Phone: [facility] Work Phone: 07-28-1997 Tetramune Deisy Dan APRN.[facility] Work Phone: [facility] Work Phone: 05-17-1997 measles, mumps and rubella virus vaccine Deisy Dan APRN.[facility] Work Phone: [facility] Work Phone: 02-07-1997 hepatitis B vaccine, pediatric or pediatric/adolescent dosage Deisy Dan APRN.[employer] Work Phone: [facility] Work Phone: 1996 DTP-Haemophilus influenzae type b conjugate vaccine Gely Lopez APRN.[facility] Work Phone: [facility] Work Phone: 1996 Tetramune Deisy Dan APRN.[facility] Work Phone: [facility] Work Phone: 1996 trivalent poliovirus vaccine, live, oral Deisy Dan APRN.[employer] Work Phone: [facility] Work Phone: 1995 DTP-Haemophilus influenzae type b conjugate vaccine Gely Lopez APRN.[employer] Work Phone: [facility] Work Phone: 1995 Tetramune Deisy Dan APRN.[employer] Work Phone: [facility] Work Phone: 1995 trivalent poliovirus vaccine, live, oral Deisy Dan PHLEBOTOMY TECH.[employer] Work Phone: [facility] Work Phone: 1995 DTP-Haemophilus influenzae type b conjugate vaccine Gely Beattycarmelina PHLEBOTOMY TECH.[employer] Work Phone: [facility] Work Phone: 1995 hepatitis B vaccine, pediatric or pediatric/adolescent dosage Deisy Dan PHLEBOTOMY TECH.[employer] Work Phone: [facility] Work Phone: 1995 Tetramune Deisy Dan PHLEBOTOMY TECH.[employer] Work Phone: [facility] Work Phone: 1995 trivalent poliovirus vaccine, live, oral Deisy Dan PHLEBOTOMY TECH.[employer] Work Phone: [facility] Work Phone: 1995 hepatitis B vaccine, pediatric or pediatric/adolescent dosage Deisy Dan PHLEBOTOMY TECH.[employer] Work Phone: [facility] Work Phone: Payers Date Payer Category Payer Unknown [id number] 2020 Unknown [id number] 1995 Unknown [id number] Social History Date Type Detail Facility Start: 01-22-2014 Tobacco smoking stat [facility] Never smoked tobacco [facility] Work Phone: Start: 01-22-2014 Tobacco use and exposure Smokeless tobacco non-user [facility] Work Phone: Start: 07-07-2022 End: 07-22-2024 Alcohol intake Current non-drinker of alcohol (finding) [facility] Start: 1995 Sex Assigned At Female [facility] Start: 06-27-2022 End: 07-07-2022 Exposure to SARS-CoV-2 (event) Not sure [facility] Start: 10-30-2022 End: 07-04-2023 History of Social function [facility] Start: 10-30-2022 End: 07-04-2023 Tobacco use panel [facility] National Score (1-10 0), lower number is lower risk 53 [facility] Start: 09-26-2021 Gender identity Identifies as female gender (finding) [facility] Start: 09-26-2021 Sexual orientation Heterosexual (maki torres) [facility] Start: 11-09-2023 [facility] Clinical Notes 01-22-2014 to 07-22-2024 Rajani Thayer PA - 07/22/2024 12:05 PM SANATPGely chavira APRN.[employer] - 04/27/2024 4:50 PM EDTPGely chavira APRN.[employer] - 07/04/2023 2:59 PM EDTPatient InstructionsPatient Instructions Note Date & Type Note Facility 07-22-2024 Note HNO ID: [id number] Author: RAJANI THAYER PA Service: ? Author Type: Physician Assistant Executive Housekeeper Type: Progress Notes Filed: 07/22/2024 12:12 Note [...] SPX Arthroscopy, knee, ACL x2 Repair, miniscus [id number]/ 2022 ALLERGIES Patient has no known allergies. [...] detail warranting prompt ER evaluation. CONNOR Madden [facility] 07-22-2024 History of Presen t illness Narrative [...] SPX Arthroscopy, knee, ACL x2 Repair, miniscus [id number]/ 2022 ALLERGIES Patient has no known allergies. [...] status: current everyday user Substances: Nicotine Devices: [employer] Interactive tank Substance Use Topics Alcohol use: No [...] evaluation. CONNOR Madden documented in this encounter [facility] 04-27-2024 Note HNO ID: [id number] Author: GELY LOPEZ APRN.[employer] Service: ? Author Type: Nurse Practitioner Type: Progress Notes Filed: 04/27/2024 17:30 Note Text: Subjective HPI Nontoxic 6-month female presents urgent care chief complaint left forearm burn. 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 Has been keeping the area covered. Did [...] SPX Arthroscopy, knee, ACL x2 Repair, miniscus [email or web address]/ 2022 ALLERGIES Patient has no known allergies. [...] of care. This note was generated using Shoulder Options software. It may contain errors in wording, punctuation, or spelling. Gely Lopez APRN.[facility] 04-27-2024 History of Presen t illness Narrative Subjective HPI Nontoxic 6-month female presents urgent care chief complaint left forearm burn. 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 Has been keeping the area covered. Did [...] of care. This note was generated using Shoulder Options software. It may contain errors in wording, punctuation, or spelling. Gely Lopez APRN.[employer] documented in this encounter [facility] 07-04-2023 History of Presen t illness [...] SPX Arthroscopy, knee, ACL x2 Repair, miniscus [id number]/ 2022 ALLERGIES Patient has no known allergies. [...] swelling or pain on movement. Mouth/Throat: Lips: [place]. Mouth: Mucous membranes are moist. Pharynx: Oropharynx [...] of care. This note was generated using Shoulder Options software. It may contain errors in wording, punctuation, or spelling. Gely Lopez APRN.[employer] documented in this encounter [facility] 10-30-2022 Instructions Roxann Barnett APRN.RUFINA - [...] health screening schedule is recommended by the [employer] (ACOG). Some [...] also increase risk. documented in this encounter [facility] 10-30-2022 History of Presen t illness Narrative Brenda is a 27 year old who presents with the following complaints: New to [facility], establishing care for an annual gynecologic exam . 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 SHARE DA[employer] FARMER Attending Note I have personally performed a face to face assessment of the patient and have reviewed the ELDER note. I performed a substantive portion of the visit including all aspects of the following. My encarnacion findings include: same Other additions or changes: As edited Signature: Roxann Barnett APRN.CNP Date: 10/30/2022 Time: 3:51 PM documented in this encounter [facility] 07-07-2022 Instructions Deisy Dan APRN.CNP - [...] help open respiratory and sinus passages. -Nasal [place] may offer relief of nasal and head [...] experience difficulty breathing documented in this encounter [facility] 07-07-2022 History of Presen t illness Narrative Brenda Curran 27 year old female presents to the [facility] care with concerns of right ear pain. [facility] had real bad infection last year in the same ear. She did have URI recently. 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 this has been [...] Supportive care with fluids and rest Deisy Dna APRN.SHARE DAIRY FARMER - Drink lots of fluids - Make [...] help open respiratory and sinus passages. -Nasal [place] may offer relief of nasal and head [...] experience difficulty breathing documented in this encounter [facility] 09-29-2021 Note HNO ID: [id number] Author: Roc Pedraza MD Service: ? Author Type: Physician Type: Progress Notes Filed: 09/29/2021 8:37 AM Note Text: VIRTUAL VISIT PROGRESS NOTE This is a virtual visit using [employer] video visit. It required patient-provider interaction for [...] which included preparing to see the patient, [id number] patient care, completing clinical documentation, counseling and educating the patient/family/caregiver and ordering medications, tests, or procedures Roc Pedraza MD [facility] 01-22-2014 History of Past i llness Narrative Problem Noted Date Resolved Date Tear of meniscus of right knee 01/22/2014 0 01/31/2014 documented as of this encounter (statuses as of 07/07/2022) [facility]04[facility] History of Past illness Narrative* Problem Noted Date Resolved Date Tear of meniscus of right knee 01/22/2014 0 01/31/2014 documented as of this encounter (statuses as of 10/30/2022) [facility] History of Past illness Narrative* Problem Noted Date Diagnosed Date Resolved Date Tear of meniscus of right knee 01/22/2014 01/31/2014 documented as of this encounter (statuses as of 07/04/2023) [facility] note* Diagnosis Fluid level behind tympanic membrane of both ears- Primary Upper respiratory tract infection, unspecified type documented in this encounter [facility] note* Diagnosis Encounter for gynecological examination (general) (routine) without abnormal findings- Primary Encounter for screening for malignant neoplasm of cervix Screening for malignant neoplasm of the cervix Obesity, Class I, BMI 30-34.9 Obesity, unspecified documented in this encounter [facility] note* Diagnosis Sore throat- Primary Acute pharyngitis Strep throat Streptococcal sore throat documented in this encounter [facility] note* Diagnosis Partial thickness burn of left forearm, initial encounter- Primary [facility] Diagnosis Sore throat- Primary Acute pharyngitis documented in this encounter [facility] Summary Purpose Family History No Family History Records FoundNo Family History Records FoundNo Family History Records Found Advance Directives No Advanced Directives Records FoundNo Advanced Directives Records FoundNo Advanced Directives Records Found Additional Source Comments INFORMATION SOURCE (unrecogn ized section and content) DATE CREATED AUTHOR 09/29/2021 [facility] DATE CREATED AUTHOR AUTHOR'S ORGANIZ ATION 03/17/2024 [facility] DATE CREATED AUTHOR AUTHOR'S ORGANIZ ATION 07/24/2024 [facility] Source Comments (unrecognize d section and content) In the event this informatio n is protected by the Federal Confidentiality of Alcohol and Drug Abuse Patient Records regulations: The Federal rules restrict any use of the information to criminally investigate or prosecute any alcohol or drug abuse patient.[facility] the event this information is protected by the Federal Confidentiality of Alcohol and Drug Abuse Patient Records regulations: The Federal rules restrict any use of the information to criminally investigate or prosecute any alcohol or drug abuse patient.[facility] the event this information is protected by the Federal Confidentiality of Alcohol and Drug Abuse Patient Records regulations: The Federal rules restrict any use of the information to criminally investigate or prosecute any alcohol or drug abuse patient.[facility] the event this information is protected by the Federal Confidentiality of Alcohol and Drug Abuse Patient Records regulations: The Federal rules restrict any use of the information to criminally investigate or prosecute any alcohol or drug abuse patient.[facility] the event this information is protected by the Federal Confidentiality of Alcohol and Drug Abuse Patient Records regulations: The Federal rules restrict any use of the information to criminally investigate or prosecute any alcohol or drug abuse patient.[facility] Reason for Visit (unrecogniz ed section [...] Care Teams (unrecognized sec tion and content) Social Work Coordinator Relationship Specialty Start Date End Date Steve Morrison MD [address] [place], [place] [id number] PCP - General Family Medicine 06/30/21 Social Work Coordinator Relationship Specialty Start Date End Date Steve Morrison MD [address] [place], [place] [id number] PCP - General Family Medicine 06/30/21 Social Work Coordinator Relationship Specialty Start Date End Date Steve Morrison MD [address] [place], [place] [id number] PCP - General Family Medicine 06/30/21 Social Work Coordinator Relationship Specialty Start Date End Date Steve Morrison MD [address] [place], [place] [id number] PCP - General Family Medicine 06/30/21 Social Work Coordinator Relationship Specialty Start Date End Date Steve Morrison MD [address] [place], [place] [id number] PCP - General Family Medicine 06/30/21 FOR [...] BE BASED ON THE PRIMARY CLINICAL RECORDS. [facility]. provides no warranty or guarantee of the accuracy or completeness of information in this document.
[2024-08-01 10:26] LABS: Absolute Lymphocyte Count 1.95 X10^3/uL (0.83-4.51); Absolute Neutrophil Count 10.1 X10^3/uL (2.0-7.7); Basophil# 0.03 X10^3/uL; Basophil% 0.2 % (0-1); Eosinophil# 0.09 X10^3/uL; Eosinophils% 0.7 % (0-5); Hematocrit 33.6 % (37-47); Hemoglobin 10.5 g/dL (12.0-15.0); Lymphocyte # 1.95 X10^3/ul (0.83-4.51); Lymphocyte % 15.1 % (19-41); Mean Corp Hgb Conc 31.3 g/dL (32-36); Mean Corpuscular Hgb 26.6 pg (27.0-32.0); Mean Corpuscular Volume 85.3 fL (81-99); Mean Platelet Vol. 10.2 fl (6.2-12.0); Monocyte# 0.65 X10^3/uL; NRBC Flagged by Analyzer 0 % (0-5); Neutrophil # 10.12 X10^3/uL (2.7-7.7); Neutrophil % 78.2 % (47-70); Platelet Count 317 K/mm3 (150-450); RBC Distribution Width CV 14.6 % (11.6-14.6); RBC Distribution Width SD 44.8 fl (35.1-43.9); Red Blood Count 3.94 M/mm3 (4.2-5.4)
--- OUTSIDE RECORDS SUMMARY | 2024-08-01 11:00 | XMS RPT_ITS | CCD ---
Author Organization [facility] Care Team Providers Care Senior Technical Recruiter Name Role Phone Sofy HOOVERCorinna N Unavailable [phone] Corinna Goetz LPN N Unavailable [phone] Steve Morrison MD Primary Care Provider [...] Comment on above: Take 1 capsule by [facility] twice daily for 10 days. cephalexin [...] CONTROL (2 sources) Start: 05-27-2017 CONTROL CONTROL Corinan Goetz CHAIR AND COUCH MAKER Ethinyl Estradiol / norgestimate (2 sources) Progestin, [...] tympanic membrane of both ears Use 1 [place] in each nostril once daily. 1 Each 0 07/07/2022 10/30/2022 Discontinued (Course of therapy completed) Comment on above: Use 1 [place] in each nostril once daily. Problems Active [...] Test Name Value Interpretation Reference Range Facility [facility] 07-22-2024 CNOV Office Visit (UCWSTR) ---- BRENDA ROCK ([id number]) 1995 F Date Time Provider Department 07/22/24 12:00 PM RAJANI THAYER [facility] During your visit today, we recorded the following information about you: Temperature Pulse Respiration Blood pressure 97.8 degrees 118/minute 16/minute 124/70 Weight 100.2 kg Rajani Thayer PA 07/22/2024 12:12 PM Signed This note was created using arviem AGriter. Subjective Brenda Rock is a 29 year [...] SPX Arthroscopy, knee, ACL x2 Repair, miniscus [id number]/ 2022 ALLERGIES Patient has no known allergies. [...] status: current everyday user Substances: Nicotine Devices: RefTow Choiceble tank Substance Use Topics Alcohol use: No [...] Diagnosis:Sore throat [J02.9] Order(s):STREP A MOLECULAR (POC) [1410624] Order #: [id number] #:[id number] Prescriptions as of 07/22/2024 - PNV no.95/ferrous fum/folic ac ( ORAL) Take by mouth. Problem List As Of Date 07/22/2024 Noted Resolved Tear of meniscus of right knee [S83.206A] 01/22/2014 01/31/2014 Obesity, Class I, BMI 30-34.9 [E66.811] 10/30/2022 Encounter Status:Closed by RAJANI THAYER on 07/22/24 Normal [facility] STREP A MOLECULAR (POC)on Procedural Control Valid [facility] Strep A (POCT) Negative Negative [facility] CNOVon 04-27-2024 CNOV Office Visit (UCWSTR) ---- BRENDA ROCK ([id number]) 1995 F Date Time Provider Department 04/27/24 4:45 PM GELY LOPEZ [facility] During your visit today, we recorded the following information about you: Temperature Pulse Respiration Blood pressure 97.9 degrees 75/minute 18/minute 101/70 Weight 91.8 kg Gely Lopez APRN.CHILDCARE DIRECTOR 04/27/2024 5:30 PM Signed Subjective HPI Nontoxic 6-month female presents urgent care chief complaint left forearm burn. 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 Has been keeping the area covered. Did [...] of care. This note was generated using Givespark software. It may contain errors in wording, punctuation, or spelling. Gely Lopez APRN.CHILDCARE DIRECTOR Allergies As of Date: 04/27/2024 (No Known Allergies) Date Reviewed: 04/27/2024 Reviewed by: Gely Lopez APRN.CHILDCARE DIRECTOR - Fully Assessed Reason for Visit: Burn [1748] Cmt: L forearm x5 days, red and swollen, warm to touc (more content not included)... Normal [facility] STREP A MOLECULAR (POC)on Procedural Control Valid [facility] Strep A (POCT) Positive Abnormal Negative [facility] Office Visit: Work physicalo n 08-17-2017 Documentation of current medications (procedure) Done Invalid Interpretation Code [facility] Work Phone: Tobacco smoking status NHIS Never Invalid Interpretation Code [facility] Work Phone: Tobacco use CPHS Never smoker Invalid Interpretation Code [facility] Work Phone: Vital Signs Date Time Vital Sign Value Performing Clinician Facility 07-22-2024 12:01-0400 Body mass index (BMI) [Ratio] 37.92 kg/m2 Krislyn Aberegg PA Work Phone: [facility] 07-22-2024 12:01-0400 Body temperature 97.81 [degF] Krislyn Aberegg PA Work Phone: [facility] 07-22-2024 12:01-0400 Body weight 100.2 kg Krislyn Aberegg PA Work Phone: [facility] 07-22-2024 12:01-0400 Diastolic blood pressure 70 mm[Hg] Krislyn Aberegg PA Work Phone: [facility] 07-22-2024 12:01-0400 Heart rate 118 /min Krislyn Aberegg PA Work Phone: [facility] 07-22-2024 12:01-0400 Respiratory rate 16 /min Krislyn Aberegg PA Work Phone: [facility] 07-22-2024 12:01-0400 SaO2% (BldA) [Mass fraction] 98 % Krislyn Aberegg PA Work Phone: [facility] 07-22-2024 12:01-0400 Systolic blood pressure 124 mm[Hg] Krislyn Aberegg PA Work Phone: [facility] 04-27-2024 16:48-0400 Body mass index (BMI) [Ratio] 34.74 kg/m2 Gely oLpez APRN.CHILDCARE DIRECTOR Work Phone: [facility] 04-27-2024 16:48-0400 Body temperature 97.9 [degF] Gely Lopez APRN.CHILDCARE DIRECTOR Work Phone: [facility] 04-27-2024 16:48-0400 Body weight 91.8 kg Gely Pendlebury OUTSIDE COLLECTOR.CHILDCARE DIRECTOR Work Phone: [facility] 04-27-2024 16:48-0400 Diastolic blood pressure 70 mm[Hg] Geyl Pendlebury OUTSIDE COLLECTOR.CHILDCARE DIRECTOR Work Phone: [facility] 04-27-2024 16:48-0400 Heart rate 75 /min Gely Pendlebury OUTSIDE COLLECTOR.CHILDCARE DIRECTOR Work Phone: [facility] 04-27-2024 16:48-0400 Respiratory rate 18 /min Gely Pendlebury OUTSIDE COLLECTOR.CHILDCARE DIRECTOR Work Phone: [facility] 04-27-2024 16:48-0400 SaO2% (BldA) [Mass fraction] 100 % [facility] OUTSIDE COLLECTOR.CHILDCARE DIRECTOR Work Phone: [facility] 04-27-2024 16:48-0400 Systolic blood pressure 101 mm[Hg] Gely Pendlebury OUTSIDE COLLECTOR.CHILDCARE DIRECTOR Work Phone: [facility] 07-04-2023 14:52-0400 Body temperature 97.11 [degF] [facility] OUTSIDE COLLECTOR.CHILDCARE DIRECTOR Work Phone: [facility] 07-04-2023 14:52-0400 Body weight 83.01 kg [facility] OUTSIDE COLLECTOR.CHILDCARE DIRECTOR Work Phone: [facility] 07-04-2023 14:52-0400 Diastolic blood pressure 75 mm[Hg] Gely Pendlebury OUTSIDE COLLECTOR.CHILDCARE DIRECTOR Work Phone: [facility] 07-04-2023 14:52-0400 Heart rate 94 /min Gely Pendlebury OUTSIDE COLLECTOR.CHILDCARE DIRECTOR Work Phone: [facility] 07-04-2023 14:52-0400 Respiratory rate 18 /min Gely Pendlebury OUTSIDE COLLECTOR.CHILDCARE DIRECTOR Work Phone: [facility] 07-04-2023 14:52-0400 SaO2% (BldA) [Mass fraction] 99 % Gely Pendlebury OUTSIDE COLLECTOR.CHILDCARE DIRECTOR Work Phone: [facility] 07-04-2023 14:52-0400 Systolic blood pressure 121 mm[Hg] Gely Beattybury OUTSIDE COLLECTOR.CHILDCARE DIRECTOR Work Phone: [facility] 10-30-2022 14:56-0500 Body height 162.6 cm Roxann Syeth OUTSIDE COLLECTOR.CHILDCARE DIRECTOR Work Phone: [facility] 10-30-2022 14:56-0500 Body weight 79.38 kg Roxann Syeth OUTSIDE COLLECTOR.CHILDCARE DIRECTOR Work Phone: [facility] 10-30-2022 14:56-0500 Diastolic blood pressure 69 mm[Hg] Roxann Ericka OUTSIDE COLLECTOR.CHILDCARE DIRECTOR Work Phone: [facility] 10-30-2022 14:56-0500 Heart rate 78 /min Roxann Ericka OUTSIDE COLLECTOR.CHILDCARE DIRECTOR Work Phone: [facility] 10-30-2022 14:56-0500 Systolic blood pressure 107 mm[Hg] Roxann Ericka OUTSIDE COLLECTOR.CHILDCARE DIRECTOR Work Phone: [facility] 07-07-2022 16:56-0400 Body temperature 97.7 [degF] Deisy Dan OUTSIDE COLLECTOR.CHILDCARE DIRECTOR Work Phone: [facility] 07-07-2022 16:56-0400 Body weight 80.47 kg Deisy Dan OUTSIDE COLLECTOR.CHILDCARE DIRECTOR Work Phone: [facility] 07-07-2022 16:56-0400 Diastolic blood pressure 54 mm[Hg] Deisy Dan OUTSIDE COLLECTOR.CHILDCARE DIRECTOR Work Phone: [facility] 07-07-2022 16:56-0400 Heart rate 75 /min Deisy Dan OUTSIDE COLLECTOR.CHILDCARE DIRECTOR Work Phone: [facility] 07-07-2022 16:56-0400 Respiratory rate 20 /min Deisy Dan OUTSIDE COLLECTOR.CHILDCARE DIRECTOR Work Phone: [facility] 07-07-2022 16:56-0400 SaO2% (BldA) [Mass fraction] 100 % Deisy Dan OUTSIDE COLLECTOR.CHILDCARE DIRECTOR Work Phone: [facility] 07-07-2022 16:56-0400 Systolic blood pressure 121 mm[Hg] Deisy Dan APRN.CHILDCARE DIRECTOR Work Phone: [facility] 05-27-2017 13:27-0400 BMI (Body Mass Index) 26.43 kg/m2 Corinna Goetz LPN [facility] Work Phone: 05-27-2017 13:27-0400 Body Temperature 98.1 [degF] Corinna Goetz LPN [facility] Work Phone: 05-27-2017 13:27-0400 BP Diastolic 74 mm[Hg] Corinna Goetz LPN [facility] Work Phone: 05-27-2017 13:27-0400 BP Systolic 102 mm[Hg] Corinna Goetz LPN [facility] Work Phone: 05-27-2017 13:27-0400 Height 162.56 cm Corinna Goetz LPN [facility] Work Phone: 05-27-2017 13:27-0400 Pulse (Heart Rate) 81 /min Corinna Goetz LPN [facility] Work Phone: 05-27-2017 13:27-0400 Respiratory Rate 14 /min Corinna Goetz LPN [facility] Work Phone: 05-27-2017 13:27-0400 Weight 69.85 kg Corinna Goetz LPN [facility] Work Phone: Encounters Encounter Date Encounter Type Care Provider Facility Start: 07-22-2024 End: 07-22-2024 ambulatory STEVE MORRISON Facility:[facility] Start: 07-22-2024 End: 07-22-2024 Patient encounter procedure Rajani Thayer PA Work Phone: [facility] Comment on above: Sore throat (Primary Dx) Start: 04-27-2024 End: 04-27-2024 ambulatory STEVE MORRISON Facility:[facility] Start: 04-27-2024 End: 04-27-2024 Office outpatient visit 15 minutes Gely Lopez OUTSIDE COLLECTOR.CHILDCARE DIRECTOR Work Phone: [facility] Comment on above: Partial thickness bu rn of left forearm, initial encounter (Primary Dx) Start: 03-16-2024 End: 03-16-2024 ambulatory IRAJ Gates WILLIEFRANNIE [facility] Start: 07-04-2023 End: 07-04-2023 Office outpatient visit 25 minutes Gely Lopez APRN.CHILDCARE DIRECTOR Work Phone: [facility] Comment on above: Sore throat (Primary Dx); Strep throat Start: 10-30-2022 End: 10-30-2022 Patient encounter procedure Roxann Syelio ALCOCER.CHILDCARE DIRECTOR Work Phone: [facility] Comment on above: Encounter for gyneco logical examination (general) (routine) without abnormal findings (Primary Dx); Encounter for screening for malignant neoplasm of cervix; Obesity, Class I, BMI 30-34.9 Start: 10-30-2022 End: 10-30-2022 Patient encounter status Roxann Barnett OUTSIDE COLLECTOR.CHILDCARE DIRECTOR Work Phone: [facility] Start: 07-07-2022 End: 07-07-2022 Patient encounter procedure Deisy Dan OUTSIDE COLLECTOR.CHILDCARE DIRECTOR Work Phone: [facility] Comment on above: Fluid level behind t [...] DTaP,Tdap,Td Vaccine (4 - Td or Tdap) [facility] Start: 10-30-2025 Pap Testing Pap Testing [facility] Start: 10-30-2025 Screening for malign ant neoplasm of cervix Cervical Cancer Screening [facility] Start: 06-11-2024 Covid-19 Vaccine ( season) Covid-19 Vaccine ( season) [facility] Start: 06-11-2024 Influenza vaccination Influenza Vacc ine (#1) [facility] Start: 06-11-2024 RSV Vaccine (1 - Ris k 1-dose series) RSV Vaccine (1 - Risk 1-dose series) [facility] Start: 10-11-2023 Behavioral Health Screening Behavioral Health Screening [facility] Start: 06-11-2023 Covid-19 Vaccine () Covid-19 Vaccine () [facility] Start: 06-11-2023 Influenza vaccination Influenza Vacc ine (#1) [facility] Start: 10-11-2022 DEPRESSION ASSESSMENT DEPRESSION ASS ESSMENT [facility] Start: 06-11-2022 Influenza vaccination INFLUENZA (#1) [facility] Start: 10-11-2021 [facility] Start: 11-26-2020 PAP TESTING PAP TESTING [facility] Start: 04-23-2018 Urine microalbumin profile [facility] Start: 05-27-2017 End: 05-27-2017 Appointment Appointment [facility] Work Phone: Start: 2014 Anxiety Screening Anxiety Screening [facility] Start: 2014 Depression Screening Depression Scre ening [facility] Start: 2014 HEPATITIS C SCREENING HEPATITIS C [facility] Start: 2014 Hepatitis C screening Hepatitis C [facility] Start: 2014 HIV SCREENING HIV SCREENING [facility] Start: 2014 HIV screening HIV Screening [facility] Start: 03-15-2014 HPV VACCINE (3 - 3-d ose series) HPV VACCINE (3 - 3-dose series) [facility] Start: 2010 PEDS TO ADULT TRANSITION ANNUAL ASSESSMENT PEDS TO ADULT TRANSITION ANNUAL ASSESSMENT [facility] Start: 2008 PEDS TO ADULT TRANSITION INITIAL DISCUSSION PEDS TO ADULT TRANSITION INITIAL DISCUSSION [facility] Start: 1996 COVID-19 VACCINE (#1) COVID-19 VACCI NE (#1) [facility] PAP FLUID CERVICAL SCREENING PAP FLUID CERVICAL SCREENING Lab Routine Encounter for gynecological examination (general) (routine) without abnormal findings Ordered: 10/30/2022 [facility] Work Phone: Comment on above: Ordered: 10/30/2022 [facility] Work Phone: Immunizations Immunization Date Immunization Notes Care Provider Sivan rodriguez 04-27-2024 tetanus toxoid, reduced diphtheria toxoid, and acellular pertussis vaccine, adsorbed Gely Lopez OUTSIDE COLLECTOR.[facility] Work Phone: [facility] 11-15-2013 human papilloma viru s vaccine, quadrivalent Deisy Dan OUTSIDE COLLECTOR.[facility] Work Phone: [facility] Work Phone: 11-14-2012 human papilloma viru s vaccine, quadrivalent Deisy Dan OUTSIDE COLLECTOR.[facility] Work Phone: [facility] 11-14-2012 Meningococcal, MCV4, unspecified conjugate formulation(groups A, C, Y and W-135) Deisy Dan OUTSIDE COLLECTOR.[facility] Work Phone: [facility] 04-15-2009 Meningococcal, MCV4, unspecified conjugate formulation(groups A, C, Y and W-135) Deisy Dan OUTSIDE COLLECTOR.[facility] Work Phone: [facility] Work Phone: 04-23-2008 tetanus toxoid, reduced diphtheria toxoid, and acellular pertussis vaccine, adsorbed Deisy Dan OUTSIDE COLLECTOR.CHILDCARE DIRECTOR Work Phone: [facility] Work Phone: 05-20-2001 diphtheria, tetanus toxoids and acellular pertussis vaccine Deisy Dan OUTSIDE COLLECTOR.CHILDCARE DIRECTOR Work Phone: [facility] Work Phone: 05-20-2001 measles, mumps and rubella virus vaccine Deisy Dan OUTSIDE COLLECTOR.[facility] Work Phone: [facility] Work Phone: 05-20-2001 poliovirus vaccine, inactivated Deisy Dan APRN.CHILDCARE DIRECTOR Work Phone: [facility] Work Phone: 07-11-1999 Chicken Pox (disease) Jesusita Dan APRN.CHILDCARE DIRECTOR Work Phone: [facility] Work Phone: 07-28-1997 DTP-Haemophilus influenzae type b conjugate vaccine Gely Lopez APRN.CHILDCARE DIRECTOR Work Phone: [facility] Work Phone: 07-28-1997 Tetramune Deisy Dan APRN.[facility] Work Phone: [facility] Work Phone: 05-17-1997 measles, mumps and rubella virus vaccine Deisy Dan APRN.[facility] Work Phone: [facility] Work Phone: 02-07-1997 hepatitis B vaccine, pediatric or pediatric/adolescent dosage Deisy Dan APRN.CHILDCARE DIRECTOR Work Phone: [facility] Work Phone: 1996 DTP-Haemophilus influenzae type b conjugate vaccine Gely Lopez APRN.[facility] Work Phone: [facility] Work Phone: 1996 Tetramune Deisy Dan APRN.[facility] Work Phone: [facility] Work Phone: 1996 trivalent poliovirus vaccine, live, oral Deisy Dan APRN.CHILDCARE DIRECTOR Work Phone: [facility] Work Phone: 1996 DTP-Haemophilus influenzae type b conjugate vaccine Gely Lopez APRN.CHILDCARE DIRECTOR Work Phone: [facility] Work Phone: 1996 Tetramune Deisy Dan APRN.CHILDCARE DIRECTOR Work Phone: [facility] Work Phone: 1996 trivalent poliovirus vaccine, live, oral Deisy Dan OUTSIDE COLLECTOR.CHILDCARE DIRECTOR Work Phone: [facility] Work Phone: 1996 DTP-Haemophilus influenzae type b conjugate vaccine Gely Beattycarmelina OUTSIDE COLLECTOR.CHILDCARE DIRECTOR Work Phone: [facility] Work Phone: 1996 hepatitis B vaccine, pediatric or pediatric/adolescent dosage Deisy Dan OUTSIDE COLLECTOR.CHILDCARE DIRECTOR Work Phone: [facility] Work Phone: 1996 Tetramune Deisy Dan OUTSIDE COLLECTOR.CHILDCARE DIRECTOR Work Phone: [facility] Work Phone: 1996 trivalent poliovirus vaccine, live, oral Deisy Dan OUTSIDE COLLECTOR.CHILDCARE DIRECTOR Work Phone: [facility] Work Phone: 1996 hepatitis B vaccine, pediatric or pediatric/adolescent dosage Deisy Dan OUTSIDE COLLECTOR.CHILDCARE DIRECTOR Work Phone: [facility] Work Phone: Payers Date Payer Category Payer Unknown [id number] 2020 Unknown [id number] 1996 Unknown [id number] Social History Date Type Detail Facility Start: 01-22-2014 Tobacco smoking stat [facility] Never smoked tobacco [facility] Work Phone: Start: 01-22-2014 Tobacco use and exposure Smokeless tobacco non-user [facility] Work Phone: Start: 07-07-2022 End: 07-22-2024 Alcohol intake Current non-drinker of alcohol (finding) [facility] Start: 1995 Sex Assigned At Female [facility] Start: 06-27-2022 End: 07-07-2022 Exposure to SARS-CoV-2 (event) Not sure [facility] Start: 10-30-2022 End: 07-04-2023 History of Social function [facility] Start: 10-30-2022 End: 07-04-2023 Tobacco use panel [facility] National Score (1-10 0), lower number is lower risk 53 [facility] Start: 09-26-2021 Gender identity Identifies as female gender (finding) [facility] Start: 09-26-2021 Sexual orientation Heterosexual (maki torres) [facility] Start: 11-09-2023 [facility] Clinical Notes 01-22-2014 to 07-22-2024 Rajani Thayer PA - 07/22/2024 12:05 PM SANATPGely chavira APRN.CHILDCARE DIRECTOR - 04/27/2024 4:50 PM EDTPGely chavira APRN.CHILDCARE DIRECTOR - 07/04/2023 2:59 PM EDTPatient InstructionsPatient Instructions Note Date & Type Note Facility 07-22-2024 Note HNO ID: [id number] Author: RAJANI THAYER PA Service: ? Author Type: Physician Slitter Creaser Slotter Helper Type: Progress Notes Filed: 07/22/2024 12:12 Note [...] SPX Arthroscopy, knee, ACL x2 Repair, miniscus [id number]/ 2022 ALLERGIES Patient has no known allergies. [...] detail warranting prompt ER evaluation. CONNOR Madden [facility] 07-22-2024 History of Presen t illness Narrative [...] status: current everyday user Substances: Nicotine Devices: Thinkfuse tank Substance Use Topics Alcohol use: No [...] evaluation. CONNOR Madden documented in this encounter [facility] 04-27-2024 Note HNO ID: [id number] Author: GELY LOPEZ APRN.CHILDCARE DIRECTOR Service: ? Author Type: Nurse Practitioner Type: Progress Notes Filed: 04/27/2024 17:30 Note Text: Subjective HPI Nontoxic 6-month female presents urgent care chief complaint left forearm burn. 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 Has been keeping the area covered. Did [...] of care. This note was generated using Givespark software. It may contain errors in wording, punctuation, or spelling. Gely Lopez APRN.[facility] 04-27-2024 History of Presen t illness Narrative Subjective HPI Nontoxic 6-month female presents urgent care chief complaint left forearm burn. 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 Has been keeping the area covered. Did [...] SPX Arthroscopy, knee, ACL x2 Repair, miniscus [id number]/ 2022 ALLERGIES Patient has no known allergies. [...] of care. This note was generated using Givespark software. It may contain errors in wording, punctuation, or spelling. Gely Lopez APRN.CHILDCARE DIRECTOR documented in this encounter [facility] 07-04-2023 History of Presen t illness [...] SPX Arthroscopy, knee, ACL x2 Repair, miniscus [id number]/ 2022 ALLERGIES Patient has no known allergies. [...] swelling or pain on movement. Mouth/Throat: Lips: [place]. Mouth: Mucous membranes are moist. Pharynx: Oropharynx [...] of care. This note was generated using Givespark software. It may contain errors in wording, punctuation, or spelling. Gely Lopez APRN.CHILDCARE DIRECTOR documented in this encounter [facility] 10-30-2022 Instructions Roxann Barnett APRN.RUFINA - [...] health screening schedule is recommended by the [employer] (ACOG). Some [...] also increase risk. documented in this encounter [facility] 10-30-2022 History of Presen t illness Narrative Brenda is a 27 year old who presents with the following complaints: New to [facility], establishing care for an annual gynecologic exam . Last RUG DESIGNER visit 11/26/2017 Irregular bleeding for one month [...] L0 SAB0 IAB0 Ectopic0 Multiple0 Live Births0 Decommissioning Well Site Manager History LMP: 10/01/2022, Having periods Age at Menarche: 13 Age at First : Age at Menopause: Decommissioning Well Site Manager History Comments: Sexual Activity: Yes; Male; Engaged,Same [...] Use: current everyday user Substances: Nicotine Devices: Thinkfuse tank Substance Use Topics Alcohol use: No [...] external genitalia normal, normal Bartholin's glands, urethra, Estelle's glands, no vulvar lesions, no cervical lesions, [...] or sooner as needed Joi Gottlieb APRN. CHILDCARE DIRECTOR Attending Note I have personally performed a face to face assessment of the patient and have reviewed the ELEDR note. I performed a substantive portion of the visit including all aspects of the following. My encarnacion findings include: same Other additions or changes: As edited Signature: Roxann Barnett APRN.CNP Date: 10/30/2022 Time: 3:51 PM documented in this encounter [facility] 07-07-2022 Instructions Deisy Dan APRN.CNP - [...] help open respiratory and sinus passages. -Nasal [place] may offer relief of nasal and head [...] experience difficulty breathing documented in this encounter [facility] 07-07-2022 History of Presen t illness Narrative Brenda Curran 27 year old female [facility] of [facility] pain. [facility] had real bad infection last year in the same ear. She did have URI recently. 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 this has been ongoing [...] care with fluids and rest Deisy Dan APRN.CHILDCARE DIRECTOR - Drink lots of fluids - Make [...] help open respiratory and sinus passages. -Nasal [place] may offer relief of nasal and head [...] experience difficulty breathing documented in this encounter [facility] 09-29-2021 Note HNO ID: [id number] Author: oRc Pedraza MD Service: ? Author Type: Physician Type: Progress Notes Filed: 09/29/2021 8:37 AM Note Text: VIRTUAL VISIT PROGRESS NOTE This is a virtual visit using [employer] video visit. It required patient-provider interaction for [...] which included preparing to see the patient, [id number] patient care, completing clinical documentation, counseling and educating the patient/family/caregiver and ordering medications, tests, or procedures Roc Pedraza MD [facility] 01-22-2014 History of Past i llness Narrative Problem Noted Date Resolved Date Tear of meniscus of right knee 01/22/2014 0 01/31/2014 documented as of this encounter (statuses as of 07/07/2022) [facility]04-14-2014 History of Past illness Narrative* Problem Noted Date Resolved Date Tear of meniscus of right knee 01/22/2014 0 01/31/2014 documented as of this encounter (statuses as of 10/30/2022) [facility] History of Past illness Narrative* Problem Noted Date Diagnosed Date Resolved Date Tear of meniscus of right knee 01/22/2014 01/31/2014 documented as of this encounter (statuses as of 07/04/2023) [facility] note* Diagnosis Fluid level behind tympanic membrane of both ears- Primary Upper respiratory tract infection, unspecified type documented in this encounter [facility] note* Diagnosis Encounter for gynecological examination (general) (routine) without abnormal findings- Primary Encounter for screening for malignant neoplasm of cervix Screening for malignant neoplasm of the cervix Obesity, Class I, BMI 30-34.9 Obesity, unspecified documented in this encounter [facility] note* Diagnosis Sore throat- Primary Acute pharyngitis Strep throat Streptococcal sore throat documented in this encounter [facility] note* Diagnosis Partial thickness burn of left forearm, initial encounter- Primary [facility] in this encounter [facility] [place] [facility] Diagnosis Sore throat- Primary Acute pharyngitis documented in this encounter [facility] Summary Purpose Family History No Family History Records FoundNo Family History Records FoundNo Family History Records Found Advance Directives No Advanced Directives Records FoundNo Advanced Directives Records FoundNo Advanced Directives Records Found Additional Source Comments INFORMATION SOURCE (unrecogn ized section and content) DATE CREATED AUTHOR 09/29/2021 [facility] DATE CREATED AUTHOR AUTHOR'S ORGANIZ ATION 03/17/2024 [facility] DATE CREATED AUTHOR AUTHOR'S ORGANIZ ATION 07/24/2024 [facility] Source Comments (unrecognize d section and content) In the event this informatio n is protected by the Federal Confidentiality of Alcohol and Drug Abuse Patient Records regulations: The Federal rules restrict any use of the information to criminally investigate or prosecute any alcohol or drug abuse patient.[facility] the event this information is protected by the Federal Confidentiality of Alcohol and Drug Abuse Patient Records regulations: The Federal rules restrict any use of the information to criminally investigate or prosecute any alcohol or drug abuse patient.[facility] the event this information is protected by the Federal Confidentiality of Alcohol and Drug Abuse Patient Records regulations: The Federal rules restrict any use of the information to criminally investigate or prosecute any alcohol or drug abuse patient.[facility] the event this information is protected by the Federal Confidentiality of Alcohol and Drug Abuse Patient Records regulations: The Federal rules restrict any use of the information to criminally investigate or prosecute any alcohol or drug abuse patient.[facility] the event this information is protected by the Federal Confidentiality of Alcohol and Drug Abuse Patient Records regulations: The Federal rules restrict any use of the information to criminally investigate or prosecute any alcohol or drug abuse patient.[facility] Reason for Visit (unrecogniz ed section [...] Care Teams (unrecognized sec tion and content) Senior Technical Recruiter Relationship Specialty Start Date End Date Steve Morrison MD [address], [place] [id number] PCP - General Family Medicine 06/30/21 Senior Technical Recruiter Relationship Specialty Start Date End Date Steve Morrison MD [address], [place] [id number] PCP - General Family Medicine 06/30/21 Senior Technical Recruiter Relationship Specialty Start Date End Date Steve Morrison MD [address], [place] [phone] PCP - General Family Medicine 06/30/21 Senior Technical Recruiter Relationship Specialty Start Date End Date Steve Morrison MD [address], [place] [id number] PCP - General Family Medicine 06/30/21 Senior Technical Recruiter Relationship Specialty Start Date End Date Steve Morrison MD [address], [place] [phone] PCP - General Family Medicine 06/30/21 FOR [...] BE BASED ON THE PRIMARY CLINICAL RECORDS. [facility]. provides no warranty or guarantee of the accuracy or completeness of information in this document.
[2024-08-01 11:13] LABS: Syphilis Antibodies Non-reactive
[2024-08-01] MEDS: Oxytocin 15 Units/NS 250ml 15 UNITS/250 ML IV.SOLN 2 UNITS IV (11:30)
--- NOTE | 2024-08-01 12:14 | HP.PCM.OB_ITS ---
HPI - General General Date of Admission: 08/01/24 Date of Service: 08/01/24 HPI Narrative MARIANA ROCK, is a 29 F 40.0 weeks who presents to unit from office after routine OB visit. US done by Dr Bal for decreased fundal height and noted to be oligohydramnios. Plan for pitocin and almanzar bulb Maternal Data Information JEN Calculator Estimated Delivery Date Method Current WG Current Estimate 08/01/24 Ultrasound #1 40w 0d Other Estimates 08/09/24 LMP (Certain) 38w 6d Final JEN: 08/01/24 Final JEN Source: US >20 weeks Gestational age: 40.0 PFSH PFSH Medical History (Updated 08/01/24 @ 12:17 by Mini Kaur CNM) Oligohydramnios Home Medications ?Medication ?Instructions ?Recorded ?Last Taken ?Type multivit-min no.71-iron fum 28 1 cap PO DAILY 12/24/23 07/25/24 History mg-folate no.1 1 mg-dha 300 mg capsule (PNV-[place]) ferrous gluconate 270 mg (27 mg 270 mg PO QDAY prengnacy #30 tabs 07/03/24 07/26/24 Rx iron) tablet Allergy/AdvReac Type Severity Reaction Status Date / Time No Known Allergies Allergy Verified 08/01/24 10:15 Family History Grandmother Breast cancer, Onset Age: 60 maternal Surgical History Hx of knee surgery Social History adopted: No household members: spouse current occupational status: employed 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 [employer] current occupational exposures/hazards: No pets and animals: Yes (Avoid the litterbox) pets and animals: cat(s) and dog(s) history of recent travel: Yes (September2023) out of state: Yes out of country: No sexually active: Yes Smoking Status: Former smoker alcohol intake: current details: social- but not while substance use type: does not use well-balanced diet: about half the time caffeine: Yes Type: carbonated beverages Number of servings: 1 and coffee Number of servings: 1 eating out: 1-3 times/week during the past year weight has: remained stable what type of physical activity do you participate in: none alberta/latter-day: None seatbelt use: always do you feel safe at home: Yes additional social history: Maximilian Long History 1 Elective abortions Hx Para 0 Spontaneous abortions Hx # Term Pregnancies Ectopic pregnancies Hx # Pregnancies Multiple births # of living children Visit Details Expected Delivery Route/Plan Labor Preferences- CB/BF classes: complete labor support person: [] labor intervention preferences: [] pain management options preferred: epidural cut cord/dad catch: will cut cord, maybe catch. : planning PP control planned: [] discussed possible routes of delivery and associated risks: [] special requests: [] Plans Covid status: [] Flu vaccine: [] Tdap vaccine: given at urgent care 04/27 at 26w2d Rhogam:na LARC form signed: declined movement and labor precautions reviewed. Problem list reviewed and updated with the most current plan of care details and appropriate orders placed. Relevant counseling for the gestational age provided. Continue routine care and follow up unless otherwise noted in visit notes/problem list details OB Flowsheet Initial Weight: Not Recorded Date -?-?-?-?-?-?-?-?-?-?-?-?- EGA Weight BP Urine Prot -?-?-?-?-?-?-?-?-?-?-?-?- Glucose FHR FuHt Pres Dilation -?-?-?-?-?-?-?-?-?-?-?-?- Effaced St Visit Note 12/27/23 -?-?-?-?-?-?-?-?-?-?-?-?- 8w 6d 190 lb 101/69 -?-?-?-?-?-?-?-?-?-?-?-?- 163 -?-?-?-?-?-?-?-?-?-?-?-?- JV- CRL measures a week over LMP. pictures from last us look a little fuzzy so changing due date. desires NIPT 02/01/24 -?-?-?-?-?-?-?-?-?-?-?-?- 14w 0d 191 lb 127/77 Negative -?-?-?-?-?-?-?-?-?-?-?-?- Negative 160 -?-?-?-?-?-?-?-?-?-?-?-?- MH-No further va ginal bleeding since NOB visit. Brief US confirms live IUP. Some nausea but managing. Normal labs. 03/23/24 -?-?-?-?-?-?-?-?-?-?-?-?- 21w 2d 195 lb 112/58 -?-?-?-?-?-?-?-?-?-?-?-?- 150 -?-?-?-?-?-?-?-?-?-?-?-?- SM- n ovb lof cr maping occasional fm 04/17/24 -?-?-?-?-?-?-?-?-?-?-?-?- 24w 6d 199 lb 4 oz 112/75 Nega tive -?-?-?-?-?-?-?-?-?-?-?-?- Negative 145 25 -?-?-?-?-?-?-?-?-?-?-?-?- KW- no vb/crampi ng. good fm. 28 week labs discussed 05/01/24 -?-?-?-?-?-?-?-?-?-?-?-?- 26w 6d 201 lb 105/74 -?-?-?-?-?-?-?-?-?-?-?-?- 140 27 -?-?-?-?-?-?-?-?-?-?-?-?- SM- no vb lof fm no regular ctx discussed 3 hr and cbc, anemia. declined CB class 05/15/24 -?-?-?-?-?-?-?-?-?-?-?-?- 28w 6d 206 lb 4 oz 109/73 Nega tive -?-?-?-?-?-?-?-?-?-?-?-?- Negative 140 29 -?-?-?-?-?-?-?-?-?-?-?-?- KW- no vb/lof/ t x. good fm. Tdap done and LARC done. 06/02/24 -?-?-?-?-?-?-?-?-?-?-?-?- 31w 3d 209 lb 6 oz 108/72 Nega tive -?-?-?-?-?-?-?-?-?-?-?-?- Negative 142 31 -?-?-?-?-?-?-?-?-?-?-?-?- kw- no vb/lof/ct x. good fm. no concerns 06/15/24 -?-?-?-?-?-?-?-?-?-?-?-?- 33w 2d 214 lb 4 oz 107/72 Nega tive -?-?-?-?-?-?-?-?-?-?-?-?- Negative 145 33 -?-?-?-?-?-?-?-?-?-?-?-?- JV- planning to get rpt cbc before next visit. no lof, vaginal bleeding, or dec fm. 06/30/24 -?-?-?-?-?-?-?-?-?-?-?-?- 35w 3d 214 lb 117/75 Negative -?-?-?-?-?-?-?-?-?-?-?-?- Negative 128 35 -?-?-?-?-?-?-?-?-?-?-?-?- LC- no vb/ctx/lo f. good fm. no concerns, obtaining cbc after visit. 07/05/24 -?-?-?-?-?-?-?-?-?-?-?-?- 36w 1d 216 lb 114/73 Negative -?-?-?-?-?-?-?-?-?-?-?-?- Negative 135 36 Cephalic -?-?-?-?-?-?-?-?-?-?-?-?- SM- no vb lof go od fm n oregular ctx 07/14/24 -?-?-?-?-?-?-?-?-?-?-?-?- 37w 3d 219 lb 115/70 -?-?-?-?-?-?-?-?-?-?-?-?- 135 37 Cephalic -?-?-?-?-?-?-?-?-?-?-?-?- SM- no vb lof go od fm no reuglar ctx 07/20/24 -?-?-?-?-?-?-?-?-?-?-?-?- 38w 2d 219 lb 116/81 Negative -?-?-?-?-?-?-?-?-?-?-?-?- Negative 140 37 Cephalic -?-?-?-?-?-?-?-?-?-?-?-?- SM- no vb lof go od fm no regualr ctx 07/26/24 -?-?-?-?-?-?-?-?-?-?-?-?- 39w 1d 222 lb 8 oz 115/73 Nega tive -?-?-?-?-?-?-?-?-?-?-?-?- Negative 145 39 Cephalic 1 -?-?-?-?-?-?-?-?-?-?-?-?- 50 -2 JV- no lof , vaginal bleeding ,or dec fm. pt wondering if she can be induced a little earlier than 41 weeks to maximize her maternity leave with the baby. will discuss more next visit. no lof, vaginal bleeding, or dec fm. 08/01/24 -?-?-?-?-?-?-?-?-?-?-?-?- 40w 0d 216 lb 115/82 Negative -?-?-?-?-?-?-?-?-?-?-?-?- Negative 140 38 37 1.5 -?-?-?-?-?-?-?-?-?-?-?-?- 50 -2 SM- SM- no vb lof good fm no reg ular ctx dec [facility] [place] today SM- no vb lof good fm no reg ular ctx dec FH [place] today 4.7 NST FHR Rate Baby A Baseline: 140 Variability:: Moderate Accelerations:: 15 x 15 Decelerations:: None NST Reactive:: Yes FHR Category:: Category I Uterine Activity:: irregular ROS Constitutional Constitutional: Denies change in weight, fatigue, fever(s), headache(s), poor appetite or weakness Eyes Eyes: Denies blurry vision, change in vision, floaters, seeing flashes or spots in vision ENT HEENT: Denies dizziness, headache(s), loss taste/smell or sore throat Cardiovascular Cardiovascular: Denies chest pain, dizziness, dyspnea, irregular heart rhythm, lightheadedness, palpitations or rapid heart rate Respiratory/Chest Respiratory/Chest: Denies change in mental status, chest tightness, cough, dyspnea or breast pain Gastrointestinal Gastrointestinal: Denies anorexia, chewing difficulty, constipation, diarrhea or weight changes Genitourinary Genitourinary: Denies difficulty urinating, dysuria, flank pain, genital pain, urinary frequency or urinary urgency Musculoskeletal Musculoskeletal: Denies back pain, difficulty walking, extremity pain, joint pain, muscle cramps or muscle weakness Integumentary Integumentary: Denies lesions or unusual bruising Neurologic Neurologic: Denies abnormal movements, abnormal speech, dizziness, numbness, seizure-like activity, syncope or weakness Psychiatric Psychiatric: Denies behavioral changes, change in appetite, confusion, depression, homicidal ideation, suicidal ideation or suicidal thoughts Endocrine Endocrinology: Denies excessive sweating, polydipsia or polyuria Hematologic/Lymphatic Hematologic/Lymphatic: Denies anemia Allergic/Immunologic Allergic/Immunologic: Denies itchy eyes, lip swelling, throat swelling, tongue swelling or wheezing Vital Signs Vital Signs Vital Signs: 08/01/24 09:59 08/01/24 09:59 08/01/24 09:59 Temperature Temperature Source Temporal Pulse Rate 104 H Respiratory Rate Blood Pressure 124/79 H BP Systolic 124 BP Diastolic 79 08/01/24 09:59 08/01/24 09:59 08/01/24 12:13 Temperature 97.6 F L Temperature Source Pulse Rate Respiratory Rate 16 Blood Pressure 122/67 H BP Systolic 122 BP Diastolic 67 08/01/24 12:13 Temperature Temperature Source Pulse Rate 86 Respiratory Rate Blood Pressure BP Systolic BP Diastolic Weight Weight: 216 lb Body Mass Index (BMI) 37.0 Physical Exam Const alert, oriented x3 and no apparent distress General Appearance: cooperative Orientation / Consciousness: awake HEENT normocephalic Neck full ROM Lymph Lymphatic: no lymphadenopathy noted Chest inspection of chest normal Resp normal respiratory effort and normal air movement Effort and Inspection: able to speak in complete sentences and symmetric chest movement GI soft to palpation and non-tender Inspection: gravid Palpation: soft; Negative for tender external exam normal Back/Spine normal to inspection Extremity normal to inspection and full ROM Skin no rashes or lesions noted Psych mental status grossly normal Appearance: grossly normal Speech: normal speech Labs Labs Labs: Blood Type A POSITIVE Antibody Screen NEGATIVE Hct 33.6 % (37-47) L Hgb 10.5 g/dL (12.0-15.0) L Pap Smear Negative Obstetrics Ultrasound Syphilis Total Ab Non-reactive Rubella IgG Antibody Reactive (Nonreactive) Hep Bs Antigen Non-Reactive (Nonreactive) Hepatitis C Antibody Non-Reactive (Nonreactive) Chlamydia DNA (MATT) Negative (Negative) N.gonorrhoeae DNA (MATT) Negative (Negative) HIV 1&2 Antibody Non-Reactive (Nonreactive) Glucose 1 Hr 50 gm 141 mg/dL (70-140) H Gest Glucose Tolerance MG/DL Assessment & Plan (1) Oligohydramnios in third trimester: (2) Trauma during : (3) Abnormal glucose affecting : COMMENT: 3 hour gtt passed (4) Encounter for induction of labor: PLAN: Patient presents IOL, plan management for with almanzar bulb/ pitocin/AROM. Pain management: plans epidural. GBS negative. Management of any complications: oligohydramnios I have reviewed the [facility] and made any clinically relevant updates. (5) Anemia affecting in third trimester: COMMENT: iron recommended, repeat cbc in mid may (6) Supervision of high-risk : QUALIFIERS: Trimester: second trimester Qualified Code(s): O09.92 - Supervision of high risk , unspecified, second trimester COMMENT: [id number], JEN 08/09/24, boy nay Maximilian (7) : QUALIFIERS: Weeks of gestation: 40 weeks Qualified Code(s): Z3A.40 - 40 weeks gestation of COMMENT: GBS NEGATIVE, normal anatomy, NIPT low risk, carrier neg. 14. AFP declined (8) Low grade squamous intraepithelial lesion (LGSIL): COMMENT: 2019, nl pap 2020, repeat pap 06/2022 Charges/Coding Multi Select Codes Urinary/Genital Urinary/Genital CPT Codes: No Charge
[2024-08-01] MEDS: 0.9% Normal Saline Single 100 ML IV.SOLN. INTRA-UTER (12:15)
[2024-08-01] MEDS: fentaNYL-bupivacaine (epidural) 100 ML BAG EPIDURAL ×2 (16:11→20:55)
[2024-08-01] MEDS: Lactated Ringers 1,000 ML 999 ML IV (16:33)
--- NOTE | 2024-08-01 16:40 | PN_ITS ---
Progress Note comfortable with epidural current tracing: FHT: 125 Moderate variability reactive no decelerations category I tracing Hankinson: 2-3 minute Contractions Membranes:AROM at 1635- clear SVE:4/50/-2 A/P: Continue with position changes Titrate pitocin per protocol Epidural per anesthesia GBS neg Anticipate Dr Farfan aware of above assessment and agrees with plan of care Assessment & Plan Assessment/Plan (1) Encounter for induction of labor: (2) Oligohydramnios in third trimester: (3) Trauma during : (4) Abnormal glucose affecting : (5) Anemia affecting in third trimester: (6) Supervision of high-risk : QUALIFIERS: Trimester: second trimester Qualified Code(s): O09.92 - Supervision of high risk , unspecified, second trimester (7) : QUALIFIERS: Weeks of gestation: 40 weeks Qualified Code(s): Z3A.40 - 40 weeks gestation of (8) Low grade squamous intraepithelial lesion (LGSIL): Multi Select Codes Urinary/Genital Urinary/Genital CPT Codes: No Charge
[2024-08-02] VITALS (30 sets, daily range): BP systolic 99–123; BP diastolic 52–82; PULSE 76–105; RESP 14–16; TEMP 36.2–36.9; O2SAT 98–100
[2024-08-02] MEDS: fentaNYL-bupivacaine (epidural) 100 ML BAG EPIDURAL ×3 (01:21→10:44)
[2024-08-02] MEDS: LACTATED RINGERS 500 ML 999 ML IV ×2 (02:53→07:35)
[2024-08-02] MEDS: Amnioinfusion- 0.9% NS 1,000 ML IV.SOLN. 1 ML INTRA-UTER (03:35)
[2024-08-02] MEDS: Lactated Ringers 1,000 ML 50 ML IV (03:35)
[2024-08-02] MEDS: Ondansetron 4 MG/2 ML Vial IV (06:59)
[2024-08-02] MEDS: Oxytocin 15 Units/NS 250ml 15 UNITS/250 ML IV.SOLN IV (10:43)
[2024-08-02] MEDS: Acetaminophen 500 MG Tablet PO (13:15)
--- NOTE | 2024-08-02 13:40 | EX.PCM.OBVAG ---
Assessment & Plan (1) Encounter for induction of labor: (2) Oligohydramnios in third trimester: (3) Anemia affecting in third trimester: COMMENT: iron recommended, repeat cbc in mid may (4) Supervision of high-risk : QUALIFIERS: Trimester: second trimester Qualified Code(s): O09.92 - Supervision of high risk , unspecified, second trimester COMMENT: [id number], JEN 08/09/24, boy nay Maximilian (5) : QUALIFIERS: Weeks of gestation: 40 weeks Qualified Code(s): Z3A.40 - 40 weeks gestation of COMMENT: GBS NEGATIVE, normal anatomy, NIPT low risk, carrier neg. . AFP declined (6) Vaginal delivery: COMMENT: SM IOL oligo boy nay 40 Maternal Data Information JEN Calculator Estimated Delivery Date Method Current WG Current Estimate 08/01/24 Ultrasound #1 40w 1d Other Estimates 08/09/24 LMP (Certain) 39w 0d Vaginal Delivery Maternal Presentation Maternal Presentation: iol oligo 40 weeks Type of Induction: Pitocin Vaginal Delivery Information Procedure Performed: Spontaneous Vaginal Delivery Surgeon/Practitioner: Eri Eddy Date of Procedure: 08/02/24 Pre-Procedure Diagnosis: see a/p details Post-Procedure Diagnosis: same Type of anesthesia: Epidural Special Medications: none Estimated Blood Loss: 200 Findings Description of procedure: Patient began pushing and delivered the head in the MIRNA presentation. The head was delivered atraumatically and a loose nuchal cord ?1 was identified and easily reduced over the infant's head. The anterior and posterior shoulders delivered without complication followed by the rest of the and the was placed on the maternal abdomen. Delayed cord clamping was employed for approximately 60 seconds. Cord was clamped and cut and gentle traction was applied to the cord and the placenta delivered spontaneously immediately following it was noted to be intact with three-vessel cord. The perineum and vagina were inspected and noted to have a first degree laceration repaired in the usual fashion with 3-0 rapide. EBL was 200 cc. Patient and infant tolerated delivery well. Procedures Urinary/Genital [id number]: [id number] Vaginal Delivery [facility]
--- NOTE | 2024-08-02 13:41 | PCM.DC ---
Discharge Instructions Diet Discharge Diet: No restrictions Activity Discharge Activity: Return to Normal Activity, May Not Drive (while taking narcotic pain medications.) and May Shower May resume sexual activity in: 4-6 weeks Dressing / Incision Call your doctor if your incision/area has: Continuous Slow Oozing, Sudden Increased Bleeding, Increased Pain/ Swelling, Increased Redness and Foul Smelling Discharge Follow Up Care Please Follow Up With: Eri Eddy MD When: Call [phone] to make an appointment with your doctor in 6 weeks. If you had elevated blood pressure or 4th degree laceration, you will need to be seen in 2 weeks. Test Results: Test results from this visit will be discussed in further detail at your follow-up appointment, if applicable. Discharge Plan Admission Admit Date/Time: 08/01/24 09:45 Attending Provider: Eri Eddy Primary Care Provider: Estevan Morrison Discharge Orders/Prescriptions Prescriptions: No Action PNV-[place] 28-1-300 mg capsule 1 cap PO DAILY ferrous gluconate 270 mg (27 mg iron) tablet 270 mg PO QDAY Qty: 30 6RF Referrals / Follow Up: Estevan Morrison MD [Primary Care Provider] - Disposition Disposition (needs filled in before D/C Order can be placed): Home, Self Care
[2024-08-02] MEDS: Naproxen 500 MG Tablet PO (21:35)
[2024-08-03 00:05] VITALS: BP 113/65; PULSE 99; RESP 16; TEMP 36.1; O2SAT 97
[2024-08-03] MEDS: Acetaminophen 500 MG Tablet 1000 MG PO (02:28)
[2024-08-03 04:02] VITALS: BP 112/73; PULSE 85; RESP 16; TEMP 36.1; O2SAT 98
[2024-08-03 07:52] VITALS: BP 123/76; PULSE 79; RESP 17; TEMP 36.1
--- NOTE | 2024-08-03 08:07 | PCM.PN.OB ---
Subjective Subjective Patient doing well without complaints. Tolerating PO. Ambulating and voiding without difficulty. Feeding well. Denies chest pain, shortness of breath, calf pain/swelling, fevers, chills, lightheadedness. Objective Data Objective Data Vital Signs: Vital Signs Temp Pulse Resp BP Pulse Ox O2 Del Method 97.0 F L 79 17 123/76 H 98 Room Air 08/03/24 07:52 08/03/24 07:52 08/03/24 07:52 08/03/24 07:52 08/03/24 04:02 08/03/24 07:52 Oxygen Delivery Method Room Air Weight: 216 lb Body Mass Index (BMI) 37.0 Intake & Output: Intake and Output for Last 24 Hours 08/01/24 08/02/24 08/03/24 23:59 23:59 23:59 Intake Total 1341.07 / 1341.07 2481.83 / 2481.83 Output Total 3000 / 3000 Balance 1341.07 / 1341.07 -518.17 / -518.17 Lab / Micro Data 08/01/24 10:10 Physical Exam Const alert and oriented x3 HEENT normocephalic Eyes PERRL Neck full ROM Resp normal respiratory effort GI soft to palpation GI Narrative: FF below U Assessment & Plan (1) Vaginal delivery: COMMENT: SM IOL oligo boy nay 40 PLAN: Plan s/p PPD # 1 1. routine post delivery care 2. breast feeding- support given 3. rh positive 4. rubella immune 5. home today
[2024-08-03 12:19] VITALS: BP 119/66; PULSE 76; RESP 16; TEMP 36.7
[2024-08-03 20:22] VITALS: BP 138/87; PULSE 76; RESP 16; TEMP 36.6; O2SAT 98
[2024-08-04 03:00] VITALS: BP 128/83; PULSE 79; RESP 16; TEMP 36.5; O2SAT 96
[2024-08-04 07:55] VITALS: BP 132/83; PULSE 85; RESP 16; TEMP 36.8; O2SAT 99
--- NOTE | 2024-08-04 08:58 | PCM.PN.CNM ---
Subjective Subjective Patient doing well without complaints. Tolerating PO. Ambulating and voiding without difficulty. Feeding well. Denies chest pain, shortness of breath, calf pain/swelling, fevers, chills, lightheadedness. Objective Data Objective Data Vital Signs: Vital Signs Temp Pulse Resp BP Pulse Ox O2 Del Method 98.3 F 85 16 132/83 H 99 Room Air 08/04/24 07:55 08/04/24 07:55 08/04/24 07:55 08/04/24 07:55 08/04/24 07:55 08/04/24 07:55 Oxygen Delivery Method Room Air Weight: 216 lb Body Mass Index (BMI) 37.0 Intake & Output: Intake and Output for Last 24 Hours 08/02/24 08/03/24 08/04/24 23:59 23:59 23:59 Intake Total 2481.83 / 2481.83 Output Total 3000 / 3000 Balance -518.17 / -518.17 Lab / Micro Data 08/01/24 10:10 Physical Exam Const alert and oriented x3 HEENT normocephalic Eyes PERRL Neck full ROM Resp normal respiratory effort GI soft to palpation GI Narrative: FF below U Assessment & Plan (1) Vaginal delivery: COMMENT: SM IOL oligo boy nay 40 PLAN: s/p PPD # 2 1. routine post delivery care 2. breast feeding- support given 3. rh positive 4. rubella immune 5. d/c home today
--- NOTE | 2024-08-04 08:59 | PCM.DC.SUM ---
Providers Date of Admission: 08/01/24 Primary Care Physician: Dr. Estevan Morrison MD Reason For Visit: INDUCTION OF LABOR/LOW FLUID Diagnosis Discharge Diagnosis (1) Vaginal delivery: Status: Acute Code(s): O80 - Encounter for full-term uncomplicated delivery Plan: s/p PPD # 2 1. routine post delivery care 2. breast feeding- support given 3. rh positive 4. rubella immune 5. d/c home today Medications at Discharge Home Medications multivit-min no.71-iron fum 28 mg-folate no.1 1 mg-dha 300 mg capsule (PNV-[place]) 1 cap PO DAILY 12/24/23 ferrous gluconate 270 mg (27 mg iron) tablet 270 mg PO QDAY prengnacy #30 tabs 07/03/24 Hospital Course Operations None Procedures None Summary of Care Provided Minutes Spent on Discharge: 15 Hospital Course: pt with at term with oligo s/p , uncomplicated pp course. Physical Exam Const alert and oriented x3 HEENT normocephalic Eyes PERRL Neck full ROM Resp normal respiratory effort GI soft to palpation GI Narrative: FF below U Weight / BMI Weight Weight: 216 lb Body Mass Index (BMI) 37.0 ABG / Lab / Microbiology Data 08/01/24 10:10 D/C Instructions Discharge Diet: No restrictions May resume sexual activity in: 4-6 weeks Call your doctor if your incision/area has: Continuous Slow Oozing, Sudden Increased Bleeding, Increased Pain/ Swelling, Increased Redness and Foul Smelling Discharge Please Follow Up With: Eri Eddy MD When: Call [phone] to make an appointment with your doctor in 6 weeks. If you had elevated blood pressure or 4th degree laceration, you will need to be seen in 2 weeks. Meaningful Use Info Meaningful Use Meaningful Use Diagnoses (Choose all that apply): None applicable Ischemic Stroke Statin Dosing Therapy Reference: STATIN DOSE THERAPY REFERENCE: * Patients > 75 years receive moderate or high dose statin therapy. * Patients 75 years or YOUNGER should receive HIGH intensity statin dose unless contraindicated. You will be required to document reason for non-treatment if statin daily dose does not meet guidelines. HIGH DOSE STATIN THERAPY DAILY Atorvastatin > than or = to 40 mg Rosuvastatin > than or = to 20 mg Amlodipine + Atorvastatin > than or = to 2.5/40 mg Ezetimibe + Simvastatin 10/80 mg Simvastatin 80mg Discharge Plan Admission Admit Date/Time: 08/01/24 09:45 Attending Provider: Eri Eddy Primary Care Provider: Estevan Morrison Discharge Orders/Prescriptions Prescriptions: No Action PNV-[place] 28-1-300 mg capsule 1 cap PO DAILY ferrous gluconate 270 mg (27 mg iron) tablet 270 mg PO QDAY Qty: 30 6RF Referrals / Follow Up: Estevan Morrison MD [Primary Care Provider] - Disposition Disposition (needs filled in before D/C Order can be placed): Home, Self Care
[2024-08-04 14:54] VITALS: BP 126/88; PULSE 93; RESP 18; TEMP 36.7; O2SAT 98
[2024-08-04] MEDS: FLU VACC 2024-25(6MOS UP)/PF 45 MCG/0.5 ML SYRINGE IM (17:35)
== END 2024-08-04 18:15 | disposition home or self-care (01) | DRG 807 ==
PROVIDERS: Advanced Practice Midwife; Admitting Provider Obstetrics & Gynecology; PCP Family Medicine; Referring Provider Family Medicine; Visit Provider Obstetrics & Gynecology
DX: O41.03X0 Oligohydramnios, third trimester, not applicable or unspecified (principal); Z37.0 Single live birth; D64.9 Anemia, unspecified; O70.0 First degree perineal laceration during delivery; O69.81X0 Labor and delivery complicated by cord around neck, without compression, not applicable or unspecified; O48.0 Post-term pregnancy; O99.02 Anemia complicating childbirth; Z79.899 Other long term (current) drug therapy; Z87.891 Personal history of nicotine dependence; Z3A.40 40 weeks gestation of pregnancy
CPT/HCPCS: 59025; 59050; 85025; 86780; 86850; 86900; 86901; 90656; 99221; J7030; J7120; G0378; J2405

== ENCOUNTER → 2024-09-13 | Outpatient (CLI) | payer OTHER, SELFPAY ==
[2024-09-13 12:42] LABS: Absolute Lymphocyte Count 1.85 X10^3/uL (0.83-4.51); Absolute Neutrophil Count 4.5 X10^3/uL (2.0-7.7); Basophil# 0.05 X10^3/uL; Basophil% 0.7 % (0-1); Eosinophil# 0.09 X10^3/uL; Eosinophils% 1.3 % (0-5); Hemoglobin 12.2 g/dL (12.0-15.0); Lymphocyte # 1.85 X10^3/ul (0.83-4.51); Lymphocyte % 26.9 % (19-41); Mean Corp Hgb Conc 31.3 g/dL (32-36); Mean Corpuscular Hgb 26.9 pg (27.0-32.0); Mean Corpuscular Volume 86.1 fL (81-99); Mean Platelet Vol. 10.4 fl (6.2-12.0); Monocyte# 0.37 X10^3/uL; Monocyte% 5.4 % (0-10); NRBC Flagged by Analyzer 0 % (0-5); Neutrophil # 4.48 X10^3/uL (2.7-7.7); Neutrophil % 65.1 % (47-70); Platelet Count 308 K/mm3 (150-450); RBC Distribution Width CV 16.5 % (11.6-14.6); RBC Distribution Width SD 52.3 fl (35.1-43.9); Red Blood Count 4.53 M/mm3 (4.2-5.4); White Blood Count 6.9 K/mm3 (4.4-11.0)
== END | disposition home or self-care (01) ==
LOC: BWCLAB 11:04
PROVIDERS: PCP Family Medicine; Referring Provider Nurse Practitioner Women's Health; Visit Provider Nurse Practitioner Women's Health
DX: D64.9 Anemia, unspecified (principal)
CPT/HCPCS: 36415; 85025

== ENCOUNTER → 2025-08-10 | Outpatient (CLI) | payer OTHER, SELFPAY ==
[2025-08-15 06:08] LABS: Chlamydia By Nucleic Acid AMP Negative (Negative); Gonococcus By Nucleic Acid AMP Negative (Negative)
== END | disposition home or self-care (01) ==
LOC: LABSPEC 16:23
PROVIDERS: PCP Family Medicine; Visit Provider Advanced Practice Midwife
DX: Z34.90 Encounter for supervision of normal pregnancy, unspecified, unspecified trimester (principal)
CPT/HCPCS: 87086; 87491; 87591

== ENCOUNTER → 2025-08-20 | Outpatient (CLI) | payer OTHER, SELFPAY ==
[2025-08-20 17:14] LABS: Hematocrit 36.6 % (37-47); Hemoglobin 11.9 g/dL (12.0-15.0); Immature Granulocytes Count 0.040 X10^3/uL (0.0-0.0); Mean Corp Hgb Conc 32.5 g/dL (32-36); Mean Corpuscular Volume 89.7 fL (81-99); Mean Platelet Vol. 9.8 fl (6.2-12.0); NRBC Flagged by Analyzer 0 % (0-5); Platelet Count 300 K/mm3 (150-450); RBC Distribution Width CV 13.0 % (11.6-14.6); RBC Distribution Width SD 42.7 fl (35.1-43.9); Red Blood Count 4.08 M/mm3 (4.2-5.4); White Blood Count 8.3 K/mm3 (4.4-11.0)
[2025-08-20 17:51] LABS: HIV Nonreactive (Nonreactive); Hepatitis B Surface Antigen Nonreactive (Nonreactive); Hepatitis C Antibody Nonreactive (Nonreactive); Syphilis Antibodies Nonreactive (Nonreactive)
== END | disposition home or self-care (01) ==
PROVIDERS: PCP Family Medicine; Visit Provider Advanced Practice Midwife
DX: Z34.81 Encounter for supervision of other normal pregnancy, first trimester (principal)
CPT/HCPCS: 36415; 85025; 86703; 86762; 86780; 86803; 86850; 86900; 86901; 87340